=== PATIENT | male | born 1930 | race Caucasian/White ===

== ENCOUNTER 2017-02-21 21:19 | Emergency (ER) | payer MEDICARE, MEDICAID ==
[2017-02-21 21:37] VITALS: TEMP 97.5
[2017-02-21] MEDS ORDERED: Enalaprilat 2.5 MG/2 ML IVP STA (22:43)
[2017-02-21] MEDS ORDERED: Enalaprilat 2.5 MG/2 ML ONE (22:51)
[2017-02-21 22:52] LABS: BASO % 0.8 % (0.0-2.0); EOS # 0.2 K/uL (0.0-0.7); EOS % 2.6 % (0.0-4.0); HEMATOCRIT 40.7 % (35.0-51.0); LYMPH # 1.2 K/uL (1.0-4.3); LYMPH % 20.6 % (20.0-40.0); MEAN CELL VOLUME 91.7 fL (80.0-94.0); MEAN CORPUSCULAR HEMOGLOBIN 31.8 pg (27.0-31.0); MEAN CORPUSCULAR HGB CONC 34.7 g/dL (33.0-37.0); MEAN PLATELET VOLUME 7.4 fL (7.2-11.7); MONO # 0.6 K/uL (0.0-0.8); MONO % 9.8 % (0.0-10.0); WHITE BLOOD COUNT 5.8 K/uL (4.8-10.8)
[2017-02-21 23:02] LABS: CHLORIDE 93 mmol/L (98-107); INR 1.1
[2017-02-21 23:03] LABS: POTASSIUM 4.1 mmol/L (3.6-5.2); SODIUM 138 mmol/L (132-148)
[2017-02-21 23:05] LABS: BILIRUBIN,TOTAL 0.7 mg/dL (0.2-1.3); CARBON DIOXIDE 32 mmol/L (22-30); GFR AFRICAN-AMERICAN > 60
[2017-02-21 23:06] LABS: ALB/GLOB RATIO 1.1 (1.0-2.1); ALKALINE PHOSPHATASE 98 U/L (38-126); ALT/SGPT 30 U/L (21-72); AST/SGOT 39 U/L (17-59); BLOOD UREA NITROGEN 25 mg/dL (9-20); CALCIUM 9.7 mg/dl (8.6-10.4); GLUCOSE,RANDOM 106 mg/dL (75-110); TOTAL PROTEIN 7.4 g/dL (6.3-8.3)
[2017-02-21 23:10] VITALS: O2SAT 100
[2017-02-22 00:32] VITALS: PULSE 62; RESP 16
[2017-02-22 00:33] VITALS: BP 141/60
--- NOTE | 2017-02-22 00:35 | C.PDOC ---
History Of Present Illness Pt had a mechanical fall and fell onto a table on his way down to the ground. No LOC as per family. Pt c/o right lower chest pain. - HPI Time Seen by Provider: 02/21/17 22:26 Chief Complaint (Nursing): Trauma History Per: Patient, Family History/Exam Limitations: other (Dementia) Injury Occurred (Timing): Just Before Arrival Location Of Injury: Right: Chest, Forearm, Head Severity: Moderate Additional History Per: Prior Records - Fall Fall:Prior To Injury: Tripped Past Medical History Reviewed: Historical Data, Nursing Documentation, Vital Signs Vital Signs: Last Vital Signs Temp 97.5 F L 02/21/17 21:36 Pulse 62 02/22/17 00:30 Resp 16 02/22/17 00:30 BP 141/60 02/22/17 00:31 Pulse Ox 100 02/22/17 00:46 - Medical History PMH: Alzheimer's Disease, Benign Prostatic Hyperplasia, Dementia, HTN, Hypothyroidism Family History: States: Unknown Family Hx - Social History Hx Alcohol Use: No Hx Substance Use: No - Immunization History Hx Tetanus Toxoid Vaccination: No Hx Influenza Vaccination: Yes (2016) Hx Pneumococcal Vaccination: No Review Of Systems Except As Marked, All Systems Reviewed And Found Negative. Constitutional: Negative for: Fever Respiratory: Negative for: Shortness of Breath, Hemoptysis Gastrointestinal: Negative for: Vomiting, Abdominal Pain Musculoskeletal: Negative for: Neck Pain, Arm Pain, Back Pain Neurological: Negative for: Weakness, Numbness, Seizures, Altered Mental Status Physical Exam - Physical Exam Appears: No Acute Distress Skin: Normal Color, Warm, Dry Head: No Laceration, Other (contusion on right side of head) Eye(s): bilateral: EOMI Neck: Normal ROM, No Midline Cervical Tenderness, No Step Off Deformity, Supple Chest: Symmetrical, No Deformity, Tenderness (right lower) Cardiovascular: Rhythm Regular Respiratory: Normal Breath Sounds, No Accessory Muscle Use Gastrointestinal/Abdominal: Soft, No Tenderness Back: No CVA Tenderness, No Vertebral Tenderness Extremity: Normal ROM, No Tenderness, No Deformity, Other (abrasion on right forearm) Extremity: Bilateral: Hips Non-Tender, Pelvis-Stable Pulses: Right Radial: Normal Neurological/Psych: Other (Moving all extremities) ED Course And Treatment - Laboratory Results Result Diagrams: 02/21/17 22:46 02/21/17 22:46 ECG: Interpreted By Me, Viewed By Me ECG Rhythm: Sinus Rhythm, Nonspecific Changes Rate From EC O2 Sat by Pulse Oximetry: 100 Pulse Ox Interpretation: Normal Progress - Interventions Interventions:: Observation - Medications Administered Oral: Acetaminophen Intravenous: Antihypertensive Disposition - Disposition Disposition Time: 00:51 Condition: IMPROVED - Clinical Impression Clinical Impression: Hypertension, Fall Physician Patient Turnover Patient Signed Over To: Bhavin Lebron Handoff Comments: to f/up CT scan results.
--- NOTE | 2017-02-22 00:56 | CT ---
EXAM: CT Cervical Spine Without Intravenous Contrast CLINICAL HISTORY: 87 years old, male; Pain; Neck pain; Additional info: S/P fall, hit head TECHNIQUE: Axial computed tomography images of the cervical spine without intravenous contrast. This CT exam was performed using one or more of the following dose reduction techniques: automated exposure control, adjustment of the mA and/or kV according to patient size, and/or use of iterative reconstruction technique. Coronal and sagittal reformatted images were created and reviewed. EXAM DATE/TIME: 02/21/2017 10:50 PM COMPARISON: There are no prior studies for comparison. FINDINGS: Vertebrae: There is maintenance of the cervical lordosis. There is no prevertebral soft tissue swelling. Bony structures are osteopenic. There are no fractures. There is multilevel degenerative change. There is narrowing of the predental space. There is disc space narrowing at multiple levels. Disc space narrowing is greatest C5/C6.Facet joints align anatomically. There is mild narrowing of multiple facet joints.Spinous processes align in the expected fashion. There degenerative osteophytes greatest C5/C6 and T3/T4 Discs/spinal canal/neural foramina: See above. Soft tissues: See above. Thyroid: Thyroid is unremarkable Lung apices: Lung apices are hyperinflated. There is a 5.8 mm right upper lobe nodule. There is apical pleural-parenchymal scarring bilaterally. IMPRESSION: Osteopenia and degenerative change, no fracture; 5.8 mm right upper lobe pulmonary nodule Footer: As per Fleischner Society guidelines for follow-up and management of pulmonary nodules: For patients at low risk (minimal or absent history of smoking and of other known risk factors), recommend follow-up chest CT at 12 months; if unchanged, no further follow-up. For patient at high risk (history of smoking or of other known risk factors), recommend initial follow-up chest CT at 6-12 months, then at 18-24 months if no interval change.
--- NOTE | 2017-02-22 00:58 | CT ---
EXAM: CT Head Without Intravenous Contrast CLINICAL HISTORY: 87 years old, male; Pain; Headache and other: Hit his right side body; Additional info: S/P fall, hit head TECHNIQUE: Axial computed tomography images of the head/brain without intravenous contrast. This CT exam was performed using one or more of the following dose reduction techniques: automated exposure control, adjustment of the mA and/or kV according to patient size, and/or use of iterative reconstruction technique. EXAM DATE/TIME: 02/21/2017 10:50 PM COMPARISON: There are no prior studies for comparison. FINDINGS: Brain: There is dilatation of sulci gyri and ventricles. There is no midline shift. There is decreased attenuation in periventricular white matter. There age-indeterminate lacunar infarcts in the basal ganglia There are no focal masses. There are no focal hemorrhages. Huston-white differentiation is visualized. Ventricles: See above. Bones: Cranial vault is intact. Soft tissues: unremarkable Sinuses: There is no acute sinusitis. Ears and mastoids: Middle ears and mastoids are unremarkable. Orbits: There are no acute orbital abnormalities. IMPRESSION: Atrophy and small vessel disease, no bleed
--- NOTE | 2017-02-22 05:31 | CT ---
EXAM: CT Chest Without Intravenous Contrast CLINICAL HISTORY: 87 years old, male; Pain; Abdominal pain and other: Lower chest pain; Additional info: S/P fall, right lower chest pain. TECHNIQUE: Axial computed tomography images of the chest without intravenous contrast. This CT exam was performed using one or more of the following dose reduction techniques: automated exposure control, adjustment of the mA and/or kV according to patient size, and/or use of iterative reconstruction technique. Coronal and sagittal reformatted images were created and reviewed. COMPARISON: There are no prior studies for comparison. FINDINGS: Lungs and pleural spaces: Trachea and main bronchi are patent. The lungs are hyperinflated. There is no pneumothorax.There is apical pleural-parenchymal scarring. There is a 5 mm right upper lobe pulmonary nodule. There are smaller additional nodules in the right upper lobe. There is a pleural-based masslike opacity in the right upper lobe 2 x 2.4 x 1.2 cm. Area scarring in the right middle and lower lobes. There is mild right upper and lower lobe cylindrical bronchiectasis. There is scarring at the left base. There are no effusions. Heart and vasculature: Heart size is normal. There are coronary calcifications.There is fluid in the pericardial recesses.Aorta and main pulmonary artery are normal in caliber.There are vascular calcifications. Mediastinum: There is no pneumomediastinum. The esophagus is unremarkable. There are shotty mediastinal nodes.Denise are not optimally evaluated without contrast material. There is a small hiatal hernia Thyroid: Thyroid is unremarkable Bones/joints: Bony structures are osteopenic. There are degenerative changes in the spine. There are no acute displaced rib fractures. Soft tissues: unremarkable Upper abdomen: Refer to following report for abdominal findings IMPRESSION: No acute intrathoracic injury, no fracture seen; multiple right upper lobe pulmonary nodules infectious/inflammatory versus neoplastic; atherosclerotic disease Additional findings as described above. Footer: As per Fleischner Society guidelines for follow-up and management of pulmonary nodules: Recommend initial follow-up chest CT at 3, 9 and 24 months. Consider contrast enhanced chest CT, PET scan and/or biopsy as clinically warranted. EXAM: CT Abdomen and Pelvis Without Intravenous Contrast CLINICAL HISTORY: 87 years old, male; Pain; Abdominal pain and other: Lower chest pain; Additional info: S/P fall, right lower chest pain. TECHNIQUE: Axial computed tomography images of the abdomen and pelvis without intravenous contrast. This CT exam was performed using one or more of the following dose reduction techniques: automated exposure control, adjustment of the mA and/or kV according to patient size, and/or use of iterative reconstruction technique. Coronal and sagittal reformatted images were created and reviewed. EXAM DATE/TIME: 02/21/2017 10:51 PM COMPARISON: There are no prior studies for comparison. FINDINGS: Lower thorax: Refer to prior report for chest findings ABDOMEN: Limitation: Streak artifact degrades image quality. Motion artifact degrades image quality. Liver: unremarkable Gallbladder and bile ducts: unremarkable Pancreas: Pancreas is mildly atrophic. Spleen: unremarkable Adrenals: Left adrenal is mildly nodular. There is right adrenal thickening. Kidneys and ureters: There is a right renal cyst. Kidneys and ureters are otherwise unremarkable. Stomach and bowel: Stomach is partially distended. Rotation is normal. Small bowel is mildly distended with fluid and air. There is no obstruction. Terminal ileum is unremarkable. Visualized portion of the appendix is unremarkable.Colon is incompletely distended which limits evaluation. There is mild rectal wall thickening Appendix: See stomach and bowel PELVIS: Bladder: Bladder is distended. There is mild bladder wall thickening. Reproductive: There multiple seeds in the prostate. The prostate is enlarged.Seminal vesicles have the expected configuration. ABDOMEN and PELVIS: Intraperitoneal space: There is no significant fluid.There is no free air. Bones/joints: Bony structures are osteopenic.There are degenerative changes in the osseus structures. Soft tissues: unremarkable Vasculature: There are vascular calcifications. Lymph nodes: There is no pathologic adenopathy. IMPRESSION: Slightly limited evaluation of solid viscera and bowel due to lack of venous contrast, no acute solid viscera or bowel injury identified, no fracture seen Additional findings as described above.
--- NOTE | 2017-02-22 09:19 | RAD ---
HISTORY: Right chest injury s/p fall. HTN. COMPARISON: No prior. FINDINGS: LUNGS: The lungs are well inflated and clear. No focal consolidation or airspace disease. PLEURA: No significant pleural effusion identified, no pneumothorax apparent. CARDIOVASCULAR: Normal. OSSEOUS STRUCTURES: No acute rib fracture. VISUALIZED UPPER ABDOMEN: Normal. OTHER FINDINGS: None. IMPRESSION: No acute findings.
--- NOTE | 2017-02-24 12:43 | CARD ---
APPROVED REPORT EKG Measurement Heart [id number] CT [id number] <Conclusion> Sinus rhythm with premature supraventricular complexes Possible Left atrial enlargement Nonspecific T wave abnormality Prolonged QT Abnormal ECG
== END 2017-02-22 01:40 | disposition home or self-care (01) ==
LOC: C.ER 21:19
DX: S00.93XA Contusion of unspecified part of head, initial encounter (principal); S50.811A Abrasion of right forearm, initial encounter; W01.0XXA Fall on same level from slipping, tripping and stumbling without subsequent striking against object, initial encounter; I10 Essential (primary) hypertension

== ENCOUNTER 2017-04-23 11:58 | Inpatient (IN) | payer MEDICARE, MEDICAID ==
[2017-04-23] MEDS ORDERED: Sodium Chloride 0.9% 1,000 ML IV ONE (12:15)
--- NOTE | 2017-04-23 12:24 | C.PDOC ---
History Of Present Illness Wan is an 87 y/o male with a history of hypertension, hypothyroidism, and Alzheimers, who at baseline is not AAOx3, and essentially is nonverbal per family but able to move around and occasionally feed himself. Patient is complaining of fever and generalized fatigue since yesterday, which has persisted, prompting visit. Patient also with history of cough for 4 days, and urinary hesitancy, frequency, and foul smelling urine for 4 days. Since yesterday, patient has not been able to ambulate at all or feed himself. PMD: Dr. Erika Washington Time Seen by Provider: 04/23/17 12:00 Chief Complaint (Nursing): Weakness/Neurological Deficit History Per: Family History/Exam Limitations: clinical condition (dementia) Onset/Duration Of Symptoms: Days (x 2) Current Symptoms Are (Timing): Still Present Past Medical History Reviewed: Historical Data, Nursing Documentation, Vital Signs Vital Signs: Last Vital Signs Temp 102 F H 04/23/17 12:22 Pulse 76 04/23/17 12:22 Resp 16 04/23/17 12:22 BP 135/71 04/23/17 12:22 Pulse Ox 100 04/23/17 12:22 - Medical History PMH: Alzheimer's Disease, Benign Prostatic Hyperplasia, Dementia, HTN, Hypothyroidism Other Surgeries: Prostate surgery Family History: States: Unknown Family Hx - Social History Hx Alcohol Use: No Hx Substance Use: No - Immunization History Hx Tetanus Toxoid Vaccination: No Hx Influenza Vaccination: Yes (2016) Hx Pneumococcal Vaccination: No Review Of Systems Review Of Systems: ROS cannot be obtained secondary to pt's inabilty to answer questions. (limited by dementia, hx per family) Constitutional: Positive for: Fever, Malaise Respiratory: Positive for: Cough Gastrointestinal: Negative for: Vomiting, Diarrhea, Constipation Genitourinary: Positive for: Frequency (and hesitancy), Other (Foul smelling urine) Skin: Negative for: Rash Neurological: Negative for: Weakness (no focal) Physical Exam - Physical Exam Appears: No Acute Distress, Chronically Ill, Other (Appears cachectic) Skin: Normal Color, Warm, Dry Head: Atraumatic, Normacephalic Eye(s): bilateral: Normal Inspection, PERRL, EOMI Oral Mucosa: Dry (mucus membranes) Teeth: Other (Poor/missing dentition) Throat: Other (Oropharynx dry) Neck: Normal, Supple Chest: Symmetrical, No Tenderness Cardiovascular: Rhythm Regular, No Murmur Respiratory: Normal Breath Sounds, No Accessory Muscle Use, No Rhonchi, No Stridor, No Wheezing Gastrointestinal/Abdominal: Normal Exam, Soft, No Tenderness, No Distention Back: Normal Inspection, No CVA Tenderness Extremity: Other (Moving all extremities x4, but unable to keep upper extremities raised for > 5 sec bilaterally) Neurological/Psych: Other (Alert but nonverbal) ED Course And Treatment - Laboratory Results Result Diagrams: 04/23/17 12:32 04/23/17 12:32 Medical Decision Making Medical Decision Making: Differentials include but are not limited to: Pneumonia vs. Urosepsis vs. CVA Time: 12:15 Initial Plan: --CBC w/ differential --PTT --Prothrombin time --CMP --Creatine phosphokinase --CK-MB --Free T4 --Free T3 --Magnesium --Phosphorous --TSH --Troponin I --VBG --Blood culture --Urine culture --Urinalysis --EKG --CXR portable --Sodium chloride IV 1000 ml at 1000 mls/hr --Tylenol 650 mg AL --Ocampo catheter inserted --Pending CT Head w/o contrast 12:46PM EKG shows NSR at 81bpm with incomplete RBBB. Lactate 3. However, patient's does not meet SIRS criteria (temp elevated, but HR<100, R<20, WBC<12 with <10% bandemia.) 1L IVF already infusing with broad spectrum antibiotics ordered ( ordered at 12:33 and order change at 14:07 as requested by nurse to reflect what was available in ED pyxis) Time: 13:22 Chest X-Ray: Findings: Hyperinflation suggestive for COPD and or emphysematous changes. Biapical pleural thickening with upper lobe granulomatous changes. Mild patchy increased markings at the right lung base. Nodular density at the right lung base may represent confluence of shadows with ribs and vessels. Diffuse increased interstitial lung markings. Scattered nodular densities in both lung shah. Bibasilar nipple shadows. Productive change at the ends of the 1st ribs bilaterally. Heart size within normal limits. Degenerative changes in the spine and shoulders. Impression: Hyperinflation suggestive for COPD and or emphysematous changes. Biapical pleural thickening with upper lobe granulomatous changes. Mild patchy increased markings at the right lung base. Nodular density at the right lung base may represent confluence of shadows with ribs and vessels. Diffuse increased interstitial lung markings. Scattered nodular densities in both lung shah. Bibasilar nipple shadows. Productive change at the ends of the 1st ribs bilaterally. Heart size within normal limits. Degenerative changes in the spine and shoulders. --Labs reviewed, clinically significant for UTI Time: 13:32 --Spoke to Dr. Washington, patient will be admitted to Med/Surg for UTI. Family at bedside and aware. CT shows "No acute intracranial abnormality. Chronic microvascular ischemic change. Bilateral temporal lobe as well as cerebellar lobe atrophy. Prominent ventricles." Disposition - Disposition Disposition: HOSPITALIZED Disposition Time: 12:22 Condition: FAIR - Clinical Impression Clinical Impression: UTI (urinary tract infection) - Scribe Statement The provider has reviewed the documentation as recorded by the Scribe [place] Florez All medical record entries made by the Scribe were at my direction and personally dictated by me. I have reviewed the chart and agree that the record accurately reflects my personal performance of the history, physical exam, medical decision making, and the department course for this patient. I have also personally directed, reviewed, and agree with the discharge instructions and disposition.
[2017-04-23] MEDS ORDERED: Sodium Chloride 0.9% 1,000 ML ONE (12:32)
[2017-04-23] MEDS ORDERED: Piperacill/Tazo 3.375gm in Dex 3.375 GM/50 ML BAG IVPB STA (12:33)
[2017-04-23] MEDS ORDERED: Vancomycin 1 gm/NS 200 ml 1 GM/200 ML BAG IVPB STA (12:33)
[2017-04-23 12:36] LABS: BASO % 0.4 % (0.0-2.0); HEMATOCRIT 37.2 % (35.0-51.0); LYMPH # 0.8 K/uL (1.0-4.3); LYMPH % 6.8 % (20.0-40.0); MEAN CORPUSCULAR HEMOGLOBIN 31.4 pg (27.0-31.0); MEAN CORPUSCULAR HGB CONC 33.5 g/dL (33.0-37.0); MEAN PLATELET VOLUME 7.5 fL (7.2-11.7); MONO # 1.8 K/uL (0.0-0.8); MONO % 16.1 % (0.0-10.0); PLATELET COUNT 175 K/uL (130-400); RED CELL DISTRIBUTION WIDTH 12.6 % (11.5-14.5)
[2017-04-23 12:38] LABS: VENOUS BLOOD GAS BASE EXCESS 2.3 mmol/L (0.0-2.0); VENOUS BLOOD GAS PCO2 56 mmHg (40-60); VENOUS BLOOD PH 7.33 (7.32-7.43)
[2017-04-23 12:42] LABS: MEAN CELL VOLUME 93.7 fL (80.0-94.0); WHITE BLOOD COUNT 11.2 K/uL (4.8-10.8)
[2017-04-23 12:44] LABS: CHLORIDE 97 mmol/L (98-107); RBC URINE 19 /hpf (0-3); SODIUM 136 mmol/L (132-148); URINE BILIRUBIN NEGATIVE (NEGATIVE); URINE BLOOD 2+ (NEGATIVE); URINE COLOR Yellow (YELLOW); URINE GLUCOSE (UA) NORMAL (Normal); URINE KETONE NEGATIVE (NEGATIVE); URINE LEUKOCYTE ESTERASE 3+ Leu/uL (Negative); URINE PROTEIN 1+ mg/dL (NEGATIVE); URINE UROBILINOGEN NORMAL mg/dL (0.2-1.0); WBC URINE 131 /hpf (0-5)
[2017-04-23 12:45] LABS: POTASSIUM 4.1 mmol/L (3.6-5.2)
[2017-04-23 12:46] LABS: GFR AFRICAN-AMERICAN > 60
[2017-04-23 12:47] LABS: ALB/GLOB RATIO 1.1 (1.0-2.1); ALKALINE PHOSPHATASE 68 U/L (38-126); ALT/SGPT 28 U/L (21-72); AST/SGOT 26 U/L (17-59); BILIRUBIN,TOTAL 0.8 mg/dL (0.2-1.3); BLOOD UREA NITROGEN 26 mg/dL (9-20); CARBON DIOXIDE 26 mmol/L (22-30); GLUCOSE,RANDOM 113 mg/dL (75-110); PHOSPHOROUS 3.3 mg/dL (2.5-4.5); TOTAL PROTEIN 6.5 g/dL (6.3-8.3)
[2017-04-23] MEDS ORDERED: Piperacillin/Tazobact 3.375 gm 100 ML IVPB ONE (12:47)
[2017-04-23 12:48] LABS: CALCIUM 9.1 mg/dl (8.6-10.4); MAGNESIUM 1.9 mg/dL (1.6-2.3)
[2017-04-23 12:59] LABS: NEUTROPHIL 81 % (50-75); REACTIVE LYMPHOCYTES 1 % (0-0); TOTAL CELLS COUNTED 100
[2017-04-23 13:07] LABS: INR 1.1
--- NOTE | 2017-04-23 13:24 | RAD ---
Chest x-ray single frontal view History: Fever. Comparison: 02/21/2017 Findings: Hyperinflation suggestive for COPD and or emphysematous changes. Biapical pleural thickening with upper lobe granulomatous changes. Mild patchy increased markings at the right lung base. Nodular density at the right lung base may represent confluence of shadows with ribs and vessels. Diffuse increased interstitial lung markings. Scattered nodular densities in both lung shah. Bibasilar nipple shadows. Productive change at the ends of the 1st ribs bilaterally. Heart size within normal limits. Degenerative changes in the spine and shoulders. Impression: Hyperinflation suggestive for COPD and or emphysematous changes. Biapical pleural thickening with upper lobe granulomatous changes. Mild patchy increased markings at the right lung base. Nodular density at the right lung base may represent confluence of shadows with ribs and vessels. Diffuse increased interstitial lung markings. Scattered nodular densities in both lung shah. Bibasilar nipple shadows. Productive change at the ends of the 1st ribs bilaterally. Heart size within normal limits. Degenerative changes in the spine and shoulders.
[2017-04-23 13:31] LABS: FT3 3.75 pg/mL (2.77-5.27)
[2017-04-23 13:45] LABS: THYROID STIMULATING HORMONE < 0.02 mIU/L (0.46-4.68)
[2017-04-23] MEDS ORDERED: Vancomycin 1 GM 1 GM/250 ML BAG IVPB ONE (14:03)
[2017-04-23] MEDS ORDERED: Vancomycin 1 GM 1 GM/250 ML BAG IVPB STA (14:07)
--- NOTE | 2017-04-23 14:07 | CT ---
PROCEDURE: CT HEAD WITHOUT CONTRAST. HISTORY: Weakness. Altered mental status. COMPARISON: 02/21/2017 TECHNIQUE: Axial computed tomography images were obtained through the head/brain without intravenous contrast. Radiation dose: Total exam DLP = 1004 mGy-cm. This CT exam was performed using one or more of the following dose reduction techniques: Automated exposure control, adjustment of the mA and/or kV according to patient size, and/or use of iterative reconstruction technique. FINDINGS: HEMORRHAGE: No intracranial hemorrhage. BRAIN: Scattered focal lucencies in the subcortical and periventricular white matter suggestive for chronic microvascular ischemic change. Bilateral temporal lobe atrophy. Cerebellar atrophy. Small bilateral lacunar basal ganglia infarcts. Punctate left cerebellar lacune infarct. Question chronic lacunar infarct in the medulla. VENTRICLES: Prominent ventricles. CALVARIUM: Unremarkable. PARANASAL SINUSES: Unremarkable as visualized. No significant inflammatory changes. MASTOID AIR CELLS: Unremarkable as visualized. No inflammatory changes. OTHER FINDINGS: Intracranial arterial calcifications. IMPRESSION: No acute intracranial abnormality. Chronic microvascular ischemic change. Bilateral temporal lobe as well as cerebellar lobe atrophy. Prominent ventricles. Additional findings as above. If focal neurologic deficit persists, consider MRI.
--- NOTE | 2017-04-23 16:07 | CP.PCM.HP ---
History of Present Illness - History of Present Illness History of Present Illness: HPI: Patient is a 87 y/o male with PMH Alzheimer disease, hypothyroidism, HTN, and prostate CA who presents to the ED with his daughter and [id number] with fever, fatigue, and lethargy since yesterday. Patient is non-verbal at baseline so history was obtained from the [id number], Meghana. She says the patient seemed disoriented yesterday and was not opening his eyes as much as usual. She took his temperature at home and says it was 101.7. She gave him tylenol which reduced the fever but it came back last night. She also noted a decrease in appetite with difficulty swallowing. She says the patient usually eats a normal vegetarian diet, but yesterday she had to puree his foods for him to be able to eat and she noticed he did not eat as much as usual. She says the patient is normally ambulatory with support at baseline but yesterday while helping him to the bathroom he became weak in the legs and could not support himself anymore. She says he has appeared to have generalized aches because when he moves there is a look of discomfort on his face. She also notes that 5 days ago she started noticing a foul odor to his urine along with a dark appearance and increasing frequency. She says he is normally incontinent at baseline so he wears diapers. She says she has also noticed a cough that the patient has had for about 4 days as well. Full ROS could not be obtained due to non-verbal status. PMH: Alzheimer disease, hypothyroidism, HTN, and prostate CA Meds: * levothyroxine 125 mcg 1.5 tabs PO QD * Metoprolol succinate 50 mg PO QD * Losartan 50 mg PO QD * Namzaric 28/10 mg PO QD * Nuedexta 20/10 mg PO BID PSH: radioactive seed implant of prostate FamHx: denied any known disease SocHx: * Denies tobacco, alcohol, and elicit drug use * Lives at home with children * Diet: vegetarian Code status: DNR/DNI (discussed with Health Proxy, Brayan (son) Contacts: * Brayan (son): [phone] * Dee (daughter): [phone] PMD: Sonny Peters Present on Admission - Present on Admission Any Indicators Present on Admission: No Review of Systems - Review of Systems All systems: reviewed and no additional remarkable complaints except (as per HPI ) Past Patient History - Past Social History Smoking Status: Never Smoked - CARDIAC Hx Hypertension: Yes - NEUROLOGICAL Hx Alzheimer's Disease: Yes Hx Dementia: Yes - ENDOCRINE/METABOLIC Hx Hypothyroidism: Yes - GENITOURINARY/GYNECOLOGICAL Hx Prostate Problems: Yes - PSYCHIATRIC Hx Substance Use: No - SURGICAL HISTORY Hx Surgeries: Yes Other/Comment: Prostate surgery - ANESTHESIA Hx Anesthesia: Yes Hx Anesthesia Reactions: No Meds Allergies/Adverse Reactions: Allergies Allergy/AdvReac Type Severity Reaction Status Date / Time No Known Allergies Allergy Verified 04/23/17 12:02 Physical Exam - Constitutional Appears: Cachectic, Chronically Ill - Head Exam Head Exam: ATRAUMATIC, NORMAL INSPECTION, NORMOCEPHALIC - Eye Exam Eye Exam: EOMI, PERRL - ENT Exam ENT Exam: Mucous Membranes Dry - Neck Exam Neck exam: Negative for: Lymphadenopathy - Respiratory Exam Respiratory Exam: Clear to Auscultation Bilateral, NORMAL BREATHING PATTERN. absent: Accessory Muscle Use, Rales, Rhonchi, Wheezes, Respiratory Distress - Cardiovascular Exam Cardiovascular Exam: REGULAR RHYTHM, +S1, +S2. absent: Bradycardia, Tachycardia , Gallop, Rubs, Systolic Murmur - GI/Abdominal Exam GI & Abdominal Exam: Normal Bowel Sounds, Soft, Tenderness (look of discomfort with epigastric palpation). absent: Distended - Extremities Exam Extremities exam: Positive for: normal capillary refill, pedal pulses present. Negative for: calf tenderness, pedal edema Additional comments: Splinter hemorrhages of right fingernails - Neurological Exam Neurological exam: Altered Additional comments: non-verbal 2/2 Alzheimer Disease - Skin Skin Exam: Dry, Intact, Normal Color, Warm Results - Vital Signs Recent Vital Signs: Last Vital Signs Temp 98 F 04/23/17 14:45 Pulse 66 04/23/17 14:45 Resp 19 04/23/17 14:45 BP 170/77 H 04/23/17 14:45 Pulse Ox 97 04/23/17 14:45 - Labs Result Diagrams: 04/23/17 12:32 04/23/17 12:32 Labs: Laboratory Results - last 24 hr 04/23/17 04/23/17 04/23/17 12:32 12:32 12:32 WBC 11.2 H D RBC 3.97 L Hgb 12.5 Hct 37.2 MCV 93.7 D MCH 31.4 H MCHC 33.5 RDW 12.6 Plt Count 175 MPV 7.5 Neut % (Auto) 76.7 H Lymph % (Auto) 6.8 L [place] % (Auto) 16.1 H Eos % (Auto) 0.0 Baso % (Auto) 0.4 Neut # 8.6 H Lymph # 0.8 L [place] # 1.8 H Eos # 0.0 Baso # 0.0 Neutrophils % (Manual) 81 H Band Neutrophils % 2 Lymphocytes % (Manual) 3 L Reactive Lymphs % 1 H Monocytes % (Manual) 13 H Platelet Estimate Normal RBC Morphology Normal PT 12.7 H INR 1.1 APTT 31 pO2 VBG pH VBG pCO2 VBG HCO3 VBG Total CO2 VBG O2 Sat (Calc) VBG Base Excess VBG Potassium Glucose Lactate Sodium 136 Potassium 4.1 Chloride 97 L Carbon Dioxide 26 Anion Gap 18 BUN 26 H Creatinine 1.3 Est GFR ( Amer) > 60 Est GFR (Non-Af Amer) 52 Random Glucose 113 H Calcium 9.1 Phosphorus 3.3 Magnesium 1.9 Total Bilirubin 0.8 AST 26 ALT 28 Alkaline Phosphatase 68 Total Creatine Kinase 35 L CK-MB (Mass) 0.49 Troponin I 0.0180 Total Protein 6.5 Albumin 3.4 L Globulin 3.1 Albumin/Globulin Ratio 1.1 Free T4 Free T3 pg/mL 3.75 TSH 3rd Generation < 0.02 L Venous Blood Potassium Urine Color Urine Clarity Urine pH Ur Specific [place] Urine Protein Urine Glucose (UA) Urine Ketones Urine Blood Urine Nitrate Urine Bilirubin Urine Urobilinogen Ur Leukocyte Esterase Urine WBC (Auto) Urine RBC (Auto) 04/23/17 04/23/17 04/23/17 12:32 12:32 12:35 WBC RBC Hgb Hct MCV MCH MCHC RDW Plt Count MPV Neut % (Auto) Lymph % (Auto) [place] % (Auto) Eos % (Auto) Baso % (Auto) Neut # Lymph # [place] # Eos # Baso # Neutrophils % (Manual) Band Neutrophils % Lymphocytes % (Manual) Reactive Lymphs % Monocytes % (Manual) Platelet Estimate RBC Morphology PT INR APTT pO2 18 L VBG pH 7.33 VBG pCO2 56 VBG HCO3 24.7 VBG Total CO2 31.2 H VBG O2 Sat (Calc) 36.2 L VBG Base Excess 2.3 H VBG Potassium 4.2 Glucose 129 H Lactate 3.2 H Sodium 133.0 Potassium Chloride 101.0 Carbon Dioxide Anion Gap BUN Creatinine Est GFR ( Amer) Est GFR (Non-Af Amer) Random Glucose Calcium Phosphorus Magnesium Total Bilirubin AST ALT Alkaline Phosphatase Total Creatine Kinase CK-MB (Mass) Troponin I Total Protein Albumin Globulin Albumin/Globulin Ratio Free T4 2.24 H Free T3 pg/mL TSH 3rd Generation Venous Blood Potassium 4.2 Urine Color Yellow Urine Clarity Hazy Urine pH 7.0 Ur Specific [place] 1.015 Urine Protein 1+ H Urine Glucose (UA) Normal Urine Ketones Negative Urine Blood 2+ H Urine Nitrate Positive H Urine Bilirubin Negative Urine Urobilinogen Normal Ur Leukocyte Esterase 3+ H Urine WBC (Auto) 131 H Urine RBC (Auto) 19 H Assessment & Plan - Assessment and Plan (Free Text) Assessment: UTI * Consult ID (Dr. Steele) - recs appreciated * Vanc 1g IV QD * f/u vanc trough Wed (04/26) @13:30 * Zosyn 2.25g IV Q6 * f/u blood culture * f/u urine culture Change in Functional Status * CT head: No acute intracranial abnormality. Chronic microvascular ischemic change. Bilateral temporal lobe as well as cerebellar lobe atrophy. Prominent ventricles. Additional findings as above. * f/u MRI brain (04/24) * PT/OT eval and treat * Consult case management for discharge planning * Consult palliative care for goals of treatment * f/u swallow eval and advance diet as needed * f/u rapid flu * f/u carotid doppler * f/u ALE @ 18:30 (04/23) and 00:30 (04/24) Splinter Hemorrhages of Right Fingernails * f/u echo * f/u blood culture Hx HTN * Metoprolol succinate 50 mg PO QD * Losartan 50 mg PO QD Hx Hypothyroidism * TSH <0.02 * T4: 2.24 * T3: 3.75 * Levothyroxine 187.5 mcg PO QD (home dose of 125mcg 1.5 tabs QD) Hx Alzheimer Disease * Namzaric 28/10 PO QD (Aricept and Namenda) * Nuedexta 20/10 PO BID Hx Prostate CA * Monitor PPX * Florastor 250 BID * DVT Risk Score: 2 * Heparin 5000 U SC Q12 * SCDs * Pepcid 20 mg QD
[2017-04-23] MEDS: Sodium Chloride 0.9% 1,000 ML IV SCH (16:40)
[2017-04-23] MEDS: Saccharomyces Boulardi 250 mg Cap PO SCH (18:17)
[2017-04-23] MEDS ORDERED: Piperacillin/Tazobact 2.25 GM in Sodium Chloride 100 ML IVPB SCH (19:00)
[2017-04-23] MEDS: Meropenem 500 MG in Sodium Chloride 0.9% 100 ML IVPB SCH (21:41)
[2017-04-24] MEDS: Sodium Chloride 0.9% 1,000 ML IV SCH ×3 (02:15→21:51)
[2017-04-24] MEDS: Meropenem 500 MG in Sodium Chloride 0.9% 100 ML IVPB SCH ×3 (05:40→21:54)
[2017-04-24] MEDS: Levothyroxine 125 MCG TAB PO SCH (05:40)
[2017-04-24 07:57] LABS: BASO % 0.3 % (0.0-2.0); HEMATOCRIT 34.6 % (35.0-51.0); LYMPH % 10.2 % (20.0-40.0); MEAN CELL VOLUME 93.6 fL (80.0-94.0); MEAN CORPUSCULAR HEMOGLOBIN 31.7 pg (27.0-31.0); MEAN CORPUSCULAR HGB CONC 33.8 g/dL (33.0-37.0); MEAN PLATELET VOLUME 7.7 fL (7.2-11.7); MONO # 1.3 K/uL (0.0-0.8); MONO % 13.3 % (0.0-10.0); WHITE BLOOD COUNT 9.9 K/uL (4.8-10.8)
[2017-04-24 08:08] LABS: CHLORIDE 107 mmol/L (98-107); POTASSIUM 3.9 mmol/L (3.6-5.2); SODIUM 139 mmol/L (132-148)
[2017-04-24 08:10] LABS: BILIRUBIN,TOTAL 0.7 mg/dL (0.2-1.3); GFR AFRICAN-AMERICAN > 60
[2017-04-24 08:11] LABS: ALB/GLOB RATIO 0.9 (1.0-2.1); ALKALINE PHOSPHATASE 67 U/L (38-126); ALT/SGPT 37 U/L (21-72); AST/SGOT 36 U/L (17-59); BLOOD UREA NITROGEN 23 mg/dL (9-20); CALCIUM 8.1 mg/dl (8.6-10.4); CARBON DIOXIDE 24 mmol/L (22-30); GLUCOSE,RANDOM 98 mg/dL (75-110); TOTAL PROTEIN 5.8 g/dL (6.3-8.3)
[2017-04-24] MEDS ORDERED: Metoprolol Succinate 50 mg XL Tab PO SCH (10:00)
[2017-04-24] MEDS: Saccharomyces Boulardi 250 mg Cap PO SCH ×2 (11:02→18:43)
[2017-04-24] MEDS: Metoprolol Succinate 50 mg XL Tab PO SCH (11:03)
--- NOTE | 2017-04-24 13:58 | CP.PCM.CON ---
History of Present Illness - History of Present Illness History of Present Illness: Palliative consult Requested by Reg RODRIGUEZ Reason: Goals of care discussion Patient is a 87 yo male admitted from home with fever of 100.0 to 102.o and fatigue. Family also noted that patient's urine had a very strong odor. The urine C&S upon admission was sisgnificant for Gram - rods and patient started on Merrem IV and Vanco IV. WBC dropped to 9.0 from 11.2. The CXR was significant for changes suggesting COPD and emphysema. The CT head was negative acute findings. PMH: HTN, hypothyroidism, Alaheimer's, Soc. Hx: , lives at home with and the son and daughter Fam . hx: mother had Alzheimer's Review of Systems - Review of Systems All systems: reviewed and no additional remarkable complaints except Review of Systems: ROS obtained from the daughter. Patient nonverbal. As per daughter patient was too lethagic and could not participate at swallow evaluation this morning. Patient kept NPO until next swallow eval in AM. Past Patient History - Past Medical History & Family History Past Medical History?: Yes - Past Social History Smoking Status: Never Smoked - CARDIAC Hx Hypertension: Yes - NEUROLOGICAL Hx Alzheimer's Disease: Yes Hx Dementia: Yes - ENDOCRINE/METABOLIC Hx Hypothyroidism: Yes - MUSCULOSKELETAL/RHEUMATOLOGICAL Hx Falls: Yes - GENITOURINARY/GYNECOLOGICAL Hx Prostate Problems: Yes - PSYCHIATRIC Hx Substance Use: No - SURGICAL HISTORY Hx Surgeries: Yes Other/Comment: Prostate surgery - ANESTHESIA Hx Anesthesia: Yes Hx Anesthesia Reactions: No Meds Allergies/Adverse Reactions: Allergies Allergy/AdvReac Type Severity Reaction Status Date / Time No Known Allergies Allergy Verified 04/23/17 12:02 - Medications Medications: Current Medications Acetaminophen (Tylenol 325mg Tab) 650 mg PO Q6 PRN PRN Reason: Fever >100.4 F Donepezil HCl (Aricept) 10 mg PO HS [facility] Last Admin: 04/23/17 21:42 Dose: 10 mg Famotidine (Pepcid) 20 mg PO DAILY [facility] Last Admin: 04/24/17 11:03 Dose: Not Given Heparin Sodium (Porcine) (Heparin) 5,000 units SC Q12 [facility] Last Admin: 04/24/17 11:02 Dose: 5,000 units Home Med (Patient's Own Medication) 1 tab PO BID [facility] Vancomycin HCl 1 gm/ Sodium (Chloride) 250 mls @ 166.7 mls/hr IVPB Q24H [facility] Sodium Chloride (Sodium Chloride 0.9%) 1,000 mls @ 100 mls/hr IV .Q10H [facility] Last Admin: 04/24/17 04:30 Dose: 100 mls/hr Meropenem 500 mg/ Sodium (Chloride) 100 mls @ 100 mls/hr IVPB Q8 [facility] Last Admin: 04/24/17 05:40 Dose: 100 mls/hr Levothyroxine Sodium (Synthroid) 187.5 mcg PO DAILY@0630 [facility] Last Admin: 04/24/17 05:40 Dose: 187.5 mcg Losartan Potassium (Cozaar) 50 mg PO HS [facility] Last Admin: 04/23/17 21:41 Dose: 50 mg Memantine (Namenda) 10 mg PO BID [facility] Last Admin: 04/24/17 11:03 Dose: Not Given Metoprolol Succinate (Toprol Xl) 50 mg PO DAILY [facility] Last Admin: 04/24/17 11:03 Dose: Not Given Pneumococcal Polyvalent Vaccine (Pneumovax 23 Vaccine) 0.5 ml SC .ONCE ONE Stop: 04/26/17 10:01 Saccharomyces Boulardii (Florastor) 250 mg PO BID [facility] Last Admin: 04/24/17 11:02 Dose: Not Given Physical Exam - Constitutional Appears: Chronically Ill - Head Exam Head Exam: ATRAUMATIC, NORMAL INSPECTION, NORMOCEPHALIC - Eye Exam Eye Exam: EOMI, Normal appearance, PERRL Pupil Exam: NORMAL ACCOMODATION, PERRL - ENT Exam ENT Exam: Mucous Membranes Moist, Normal Exam - Neck Exam Neck exam: Positive for: Normal Inspection - Respiratory Exam Respiratory Exam: Decreased Breath Sounds, NORMAL BREATHING PATTERN - Cardiovascular Exam Cardiovascular Exam: REGULAR RHYTHM - GI/Abdominal Exam GI & Abdominal Exam: Normal Bowel Sounds, Soft - Rectal Exam Rectal Exam: Deferred - Exam Additional comments: Ocampo at bed side, urine concentrated - Extremities Exam Extremities exam: Positive for: normal inspection - Back Exam Back exam: NORMAL INSPECTION - Neurological Exam Neurological exam: Alert, Altered - Psychiatric Exam Psychiatric exam: Flat Affect - Skin Skin Exam: Dry, Intact, Normal Color, Warm Results - Vital Signs Recent Vital Signs: Last Vital Signs Temp 98.9 F 04/24/17 06:00 Pulse 69 04/24/17 06:00 Resp 20 04/24/17 06:00 BP 148/68 04/24/17 06:00 Pulse Ox 100 04/24/17 06:00 - Labs Result Diagrams: 04/24/17 07:47 04/24/17 07:47 Labs: Laboratory Results - last 24 hr 04/23/17 04/23/17 04/24/17 15:28 19:08 03:12 WBC RBC Hgb Hct MCV MCH MCHC RDW Plt Count MPV Neut % (Auto) Lymph % (Auto) [place] % (Auto) Eos % (Auto) Baso % (Auto) Neut # Lymph # [place] # Eos # Baso # APTT Sodium Potassium Chloride Carbon Dioxide Anion Gap BUN Creatinine Est GFR ( Amer) Est GFR (Non-Af Amer) Random Glucose Calcium Total Bilirubin AST ALT Alkaline Phosphatase Total Creatine Kinase 59 54 L CK-MB (Mass) 1.61 0.83 Troponin I, Quant 0.0260 0.0500 Total Protein Albumin Globulin Albumin/Globulin Ratio Influenza Typ A,B (EIA) Negative for flu a/b 04/24/17 04/24/17 04/24/17 07:47 07:47 07:47 WBC 9.9 RBC 3.70 L Hgb 11.7 L Hct 34.6 L MCV 93.6 MCH 31.7 H MCHC 33.8 RDW 13.0 Plt Count 155 MPV 7.7 Neut % (Auto) 76.2 H Lymph % (Auto) 10.2 L [place] % (Auto) 13.3 H Eos % (Auto) 0.0 Baso % (Auto) 0.3 Neut # 7.6 H Lymph # 1.0 [place] # 1.3 H Eos # 0.0 Baso # 0.0 APTT 31 Sodium 139 Potassium 3.9 Chloride 107 Carbon Dioxide 24 Anion Gap 13 BUN 23 H Creatinine 1.3 Est GFR ( Amer) > 60 Est GFR (Non-Af Amer) 52 Random Glucose 98 Calcium 8.1 L Total Bilirubin 0.7 AST 36 ALT 37 Alkaline Phosphatase 67 Total Creatine Kinase CK-MB (Mass) Troponin I, Quant Total Protein 5.8 L Albumin 2.8 L Globulin 3.0 Albumin/Globulin Ratio 0.9 L Influenza Typ A,B (EIA) Assessment & Plan - Assessment and Plan (Free Text) Assessment: Palliative consult Code status, DNR/DNI, Advance directive on chart I reviewed medical records, all diagnostic studies, examined patient in the bed and discussed goals of care with his daughter Dana at bed side. Patient is alert, lethargic, nonverbal and unable to participate in goals of care discussion. Physical exam reveals no acute findings. Goals of care discussed with patient's daughter Dana at bed side. I reviewed patient's clinical presentation and elicited daughter's expectations of care. Dana had a very good insight in her father's condition. She states seeing steady decline over the time and lastly patient was not able to recognize family members nor to fallow simple directions. Dana is concerned about patient's inability to swallow, but would not want aggressive measures such as PEG if it would not bring about improved quality of life for the patient. Dana's biggest concern is her father comfort. She would want us to apply all measures to promote her father's comfort and prevent suffering. She feels that now when her father was not able to talk any more, she needs to step in and advocate for him. Per Dana, the whole family is united in desire for conservative treatments only and promotion of natural . Code status discussed. DNR/DNI confirmed. Dana was opened for discussion about home hospice. She will reach out to us, when she feels the home hospice would be appropriate level of care for her father. Impression * This is an elderly male with complex medical Hx * patient is lethargic and nonverbal unable to participate in goals of care discussion * Dysphagia * Family has noticed steady decline in patient's condition * Family is concerned with patient;s comfort and quality of life * Family advocates for natural Suggestion * Apply all nonivasive measures to support life * Repeat Swallow eval * Promote comfort * If PEG becomes an option, family would like to be consulted for the final decision * Family is open to a Home Hospice if that would benefit patient in the future I gave daughter my contact info for further discussions as needed. Thank you for consulting Palliative Care
--- NOTE | 2017-04-24 16:13 | CP.PCM.PN ---
<Zoran Palafox - Last Filed: 04/24/17 17:59> Subjective - Date & Time of Evaluation Date of Evaluation: 04/24/17 Time of Evaluation: 09:35 - Subjective Subjective: PGY1 Medicine Note for Dr. Arreaga Patient seen and examined at bedside this morning. Patient is non-verbal at baseline. Objective - Vital Signs/Intake and Output Vital Signs (last 24 hours): Temp Pulse Resp BP Pulse Ox 98.9 F 69 20 148/68 100 04/24/17 06:00 04/24/17 14:14 04/24/17 06:00 04/24/17 14:14 04/24/17 14:14 Intake and Output: 04/24/17 04/24/17 06:59 18:59 Intake Total 1700 350 Output Total 800 400 Balance 900 -50 - Medications Medications: Current Medications Acetaminophen (Tylenol 325mg Tab) 650 mg PO Q6 PRN PRN Reason: Fever >100.4 F Donepezil HCl (Aricept) 10 mg PO [facility] Last Admin: 04/23/17 21:42 Dose: 10 mg Famotidine (Pepcid) 20 mg PO DAILY [facility] Last Admin: 04/24/17 11:03 Dose: Not Given Heparin Sodium (Porcine) (Heparin) 5,000 units SC Q12 [facility] Last Admin: 04/24/17 11:02 Dose: 5,000 units Home Med (Patient's Own Medication) 1 tab PO BID [facility] Vancomycin HCl 1 gm/ Sodium (Chloride) 250 mls @ 166.7 mls/hr IVPB Q24H [facility] Last Admin: 04/24/17 14:21 Dose: 166.7 mls/hr Sodium Chloride (Sodium Chloride 0.9%) 1,000 mls @ 100 mls/hr IV .Q10H [facility] Last Admin: 04/24/17 04:30 Dose: 100 mls/hr Meropenem 500 mg/ Sodium (Chloride) 100 mls @ 100 mls/hr IVPB Q8 [facility] Last Admin: 04/24/17 14:21 Dose: 100 mls/hr Levothyroxine Sodium (Synthroid) 187.5 mcg PO DAILY@0630 [facility] Last Admin: 04/24/17 05:40 Dose: 187.5 mcg Losartan Potassium (Cozaar) 50 mg PO [facility] Last Admin: 04/23/17 21:41 Dose: 50 mg Memantine (Namenda) 10 mg PO BID [facility] Last Admin: 04/24/17 11:03 Dose: Not Given Metoprolol Succinate (Toprol Xl) 50 mg PO DAILY [facility] Last Admin: 04/24/17 11:03 Dose: Not Given Pneumococcal Polyvalent Vaccine (Pneumovax 23 Vaccine) 0.5 ml SC .ONCE ONE Stop: 04/26/17 10:01 Saccharomyces Boulardii (Florastor) 250 mg PO BID [facility] Last Admin: 04/24/17 11:02 Dose: Not Given - Labs Labs: 04/24/17 07:47 04/24/17 07:47 PT 12.7 SECONDS (9.7-12.2) H 04/23/17 12:32 INR 1.1 04/23/17 12:32 APTT 31 SECONDS (21-34) 04/24/17 07:47 - Constitutional Appears: Non-toxic, No Acute Distress - Head Exam Head Exam: ATRAUMATIC, NORMOCEPHALIC - ENT Exam ENT Exam: Mucous Membranes Moist Additional comments: missing many teeth - Respiratory Exam Respiratory Exam: Clear to Ausculation Bilateral, NORMAL BREATHING PATTERN. absent: Accessory Muscle Use, Respiratory Distress - Cardiovascular Exam Cardiovascular Exam: REGULAR RHYTHM, +S1, +S2 - GI/Abdominal Exam GI & Abdominal Exam: Soft, Tenderness (superpubic), Normal Bowel Sounds. absent : Distended, Firm, Guarding, Rigid - Extremities Exam Extremities Exam: Normal Capillary Refill, Normal Inspection. absent: Calf Tenderness, Pedal Edema, Tenderness - Neurological Exam Neurological Exam: Altered (baseline hx of AD), Awake. absent: Oriented x3 ( baseline) - Psychiatric Exam Psychiatric exam: Flat Affect - Skin Skin Exam: Dry, Intact, Normal Color, Warm Assessment and Plan - Assessment and Plan (Free Text) Assessment: UTI * Consult ID (Dr. Steele) - recs appreciated * Vanc 1g IV QD * f/u vanc trough Wed (04/26) @13:30 * Zosyn 2.25g IV Q6 * blood culture - no growth at 24 hours * f/u urine culture - gram neg lavell Change in Functional Status * CT head: No acute intracranial abnormality. Chronic microvascular ischemic change. Bilateral temporal lobe as well as cerebellar lobe atrophy. Prominent ventricles. Additional findings as above. * f/u MRI brain (04/24) * PT/OT eval and treat * Consult case management for discharge planning * Consult palliative care - spoke with family, they understand patient's manager terminal prognosis with AD. They just want the patient to be comfortable throughout treatment. "Do everything you can to make him better as long as he is comfortable."DNR * f/u swallow eval and advance diet as needed - pt was too lethargic today. speech will try again tomorrow. * rapid flu - negative * carotid doppler - normal findings * ALE neg x 3 Splinter Hemorrhages of Right Fingernails * f/u echo - completed, awaiting report * blood culture - no growth at 24 hours Hx HTN * Metoprolol succinate 50 mg PO QD * Losartan 50 mg PO QD Hx Hypothyroidism * TSH <0.02 * T4: 2.24 * T3: 3.75 * Levothyroxine 187.5 mcg PO QD (home dose of 125mcg 1.5 tabs QD) Hx Alzheimer Disease * Namzaric 28/10 PO QD (Aricept and Namenda) * Nuedexta 20/10 PO BID Hx Prostate CA * Monitor PPX * Florastor 250 BID * DVT Risk Score: 2 * Heparin 5000 U SC Q12 * SCDs * Pepcid 20 mg QD Case discussed with Dr. Whitley Meehan Javy PGY1 <Silverio Arreaga - Last Filed: 04/25/17 15:49> Objective - Vital Signs/Intake and Output Vital Signs (last 24 hours): Temp Pulse Resp BP Pulse Ox 98.6 F 73 20 145/74 95 04/25/17 08:16 04/25/17 08:16 04/25/17 08:16 04/25/17 08:16 04/25/17 08:16 Intake and Output: 04/25/17 04/25/17 06:59 18:59 Intake Total 800 850 Output Total 350 400 Balance 450 450 - Medications Medications: Current Medications Acetaminophen (Tylenol 325mg Tab) 650 mg PO Q6 PRN PRN Reason: Fever >100.4 F Donepezil HCl (Aricept) 10 mg PO HS [facility] Last Admin: 04/24/17 21:54 Dose: 10 mg Famotidine (Pepcid) 20 mg PO DAILY [facility] Last Admin: 04/25/17 09:06 Dose: 20 mg Heparin Sodium (Porcine) (Heparin) 5,000 units SC Q12 [facility] Last Admin: 04/25/17 09:07 Dose: 5,000 units Home Med (Patient's Own Medication) 1 tab PO BID [facility] Last Admin: 04/25/17 09:06 Dose: 1 tab Vancomycin HCl 1 gm/ Sodium (Chloride) 250 mls @ 166.7 mls/hr IVPB Q24H [facility] Last Admin: 04/25/17 14:34 Dose: 166.7 mls/hr Sodium Chloride (Sodium Chloride 0.9%) 1,000 mls @ 100 mls/hr IV .Q10H [facility] Last Admin: 04/25/17 09:07 Dose: 100 mls/hr Meropenem 500 mg/ Sodium (Chloride) 100 mls @ 100 mls/hr IVPB Q8 [facility] Last Admin: 04/25/17 13:34 Dose: 100 mls/hr Gentamicin Sulfate 120 mg/ (Sodium Chloride) 103 mls @ 100 mls/hr IVPB Q24H [facility] Last Admin: 04/24/17 23:03 Dose: 100 mls/hr Levothyroxine Sodium (Synthroid) 187.5 mcg PO DAILY@0630 [facility] Last Admin: 04/25/17 06:12 Dose: 187.5 mcg Losartan Potassium (Cozaar) 50 mg PO HS [facility] Last Admin: 04/24/17 21:54 Dose: 50 mg Memantine (Namenda) 10 mg PO BID [facility] Last Admin: 04/25/17 09:06 Dose: 10 mg Metoprolol Succinate (Toprol Xl) 50 mg PO DAILY [facility] Last Admin: 04/25/17 09:06 Dose: 50 mg Pneumococcal Polyvalent Vaccine (Pneumovax 23 Vaccine) 0.5 ml SC .ONCE ONE Stop: 04/26/17 10:01 Saccharomyces Boulardii (Florastor) 250 mg PO BID [facility] Last Admin: 04/25/17 09:07 Dose: 250 mg - Labs Labs: 04/25/17 11:27 04/25/17 11:27 PT 12.7 SECONDS (9.7-12.2) H 04/23/17 12:32 INR 1.1 04/23/17 12:32 APTT 31 SECONDS (21-34) 04/24/17 07:47 Attending/Attestation - Attestation I have personally seen and examined this patient.: Yes I have fully participated in the care of the patient.: Yes I have reviewed all pertinent clinical information, including history, physical exam and plan: Yes Notes (Text): 04/25/17 15:48 Patient was seen and examined at bedside Continue management for UTI ID consultation has been [id number] recommendations I agree with the assessment and plan documented.
[2017-04-24] MEDS: NUEDEXTA PO SCH (18:43)
--- NOTE | 2017-04-24 21:51 | CP.PCM.CON ---
History of Present Illness - History of Present Illness History of Present Illness: dictated Past Patient History - Past Medical History & Family History Past Medical History?: Yes - Past Social History Smoking Status: Never Smoked - CARDIAC Hx Hypertension: Yes - NEUROLOGICAL Hx Alzheimer's Disease: Yes Hx Dementia: Yes - ENDOCRINE/METABOLIC Hx Hypothyroidism: Yes - MUSCULOSKELETAL/RHEUMATOLOGICAL Hx Falls: Yes - GENITOURINARY/GYNECOLOGICAL Hx Prostate Problems: Yes - PSYCHIATRIC Hx Substance Use: No - SURGICAL HISTORY Hx Surgeries: Yes Other/Comment: Prostate surgery - ANESTHESIA Hx Anesthesia: Yes Hx Anesthesia Reactions: No Meds Allergies/Adverse Reactions: Allergies Allergy/AdvReac Type Severity Reaction Status Date / Time No Known Allergies Allergy Verified 04/23/17 12:02 - Medications Medications: Current Medications Acetaminophen (Tylenol 325mg Tab) 650 mg PO Q6 PRN PRN Reason: Fever >100.4 F Donepezil HCl (Aricept) 10 mg PO HS [facility] Last Admin: 04/23/17 21:42 Dose: 10 mg Famotidine (Pepcid) 20 mg PO DAILY [facility] Last Admin: 04/24/17 11:03 Dose: Not Given Heparin Sodium (Porcine) (Heparin) 5,000 units SC Q12 [facility] Last Admin: 04/24/17 11:02 Dose: 5,000 units Home Med (Patient's Own Medication) 1 tab PO BID [facility] Last Admin: 04/24/17 18:43 Dose: 1 tab Vancomycin HCl 1 gm/ Sodium (Chloride) 250 mls @ 166.7 mls/hr IVPB Q24H [facility] Last Admin: 04/24/17 14:21 Dose: 166.7 mls/hr Sodium Chloride (Sodium Chloride 0.9%) 1,000 mls @ 100 mls/hr IV .Q10H [facility] Last Admin: 04/24/17 04:30 Dose: 100 mls/hr Meropenem 500 mg/ Sodium (Chloride) 100 mls @ 100 mls/hr IVPB Q8 [facility] Last Admin: 04/24/17 14:21 Dose: 100 mls/hr Gentamicin Sulfate 120 mg/ (Sodium Chloride) 103 mls @ 100 mls/hr IVPB Q24H [facility] Levothyroxine Sodium (Synthroid) 187.5 mcg PO DAILY@0630 [facility] Last Admin: 04/24/17 05:40 Dose: 187.5 mcg Losartan Potassium (Cozaar) 50 mg PO HS [facility] Last Admin: 04/23/17 21:41 Dose: 50 mg Memantine (Namenda) 10 mg PO BID [facility] Last Admin: 04/24/17 18:43 Dose: 10 mg Metoprolol Succinate (Toprol Xl) 50 mg PO DAILY [facility] Last Admin: 04/24/17 11:03 Dose: Not Given Pneumococcal Polyvalent Vaccine (Pneumovax 23 Vaccine) 0.5 ml SC .ONCE ONE Stop: 04/26/17 10:01 Saccharomyces Boulardii (Florastor) 250 mg PO BID [facility] Last Admin: 04/24/17 18:43 Dose: 250 mg Results - Vital Signs Recent Vital Signs: Last Vital Signs Temp 97.9 F 04/24/17 15:20 Pulse 73 04/24/17 15:20 Resp 20 04/24/17 15:20 BP 173/75 H 04/24/17 15:20 Pulse Ox 100 04/24/17 15:20 - Labs Result Diagrams: 04/24/17 07:47 04/24/17 07:47 Labs: Laboratory Results - last 24 hr 04/24/17 04/24/17 04/24/17 03:12 07:47 07:47 WBC 9.9 RBC 3.70 L Hgb 11.7 L Hct 34.6 L MCV 93.6 MCH 31.7 H MCHC 33.8 RDW 13.0 Plt Count 155 MPV 7.7 Neut % (Auto) 76.2 H Lymph % (Auto) 10.2 L [place] % (Auto) 13.3 H Eos % (Auto) 0.0 Baso % (Auto) 0.3 Neut # 7.6 H Lymph # 1.0 [place] # 1.3 H Eos # 0.0 Baso # 0.0 APTT 31 Sodium Potassium Chloride Carbon Dioxide Anion Gap BUN Creatinine Est GFR ( Amer) Est GFR (Non-Af Amer) Random Glucose Calcium Total Bilirubin AST ALT Alkaline Phosphatase Total Creatine Kinase 54 L CK-MB (Mass) 0.83 Troponin I, Quant 0.0500 Total Protein Albumin Globulin Albumin/Globulin Ratio 04/24/17 07:47 WBC RBC Hgb Hct MCV MCH MCHC RDW Plt Count MPV Neut % (Auto) Lymph % (Auto) [place] % (Auto) Eos % (Auto) Baso % (Auto) Neut # Lymph # [place] # Eos # Baso # APTT Sodium 139 Potassium 3.9 Chloride 107 Carbon Dioxide 24 Anion Gap 13 BUN 23 H Creatinine 1.3 Est GFR ( Amer) > 60 Est GFR (Non-Af Amer) 52 Random Glucose 98 Calcium 8.1 L Total Bilirubin 0.7 AST 36 ALT 37 Alkaline Phosphatase 67 Total Creatine Kinase CK-MB (Mass) Troponin I, Quant Total Protein 5.8 L Albumin 2.8 L Globulin 3.0 Albumin/Globulin Ratio 0.9 L
--- NOTE | 2017-04-25 02:38 | CON ---
INFECTIOUS DISEASE CONSULTATION DATE: REQUESTED BY: . HISTORY OF PRESENT ILLNESS: This patient is an 87-year-old male. He has a history of hypothyroidism, Alzheimer, hypertension, and prostate cancer. He was brought in with fever, fatigue, and lethargy. He was nonverbal. He is still very lethargic. He came with a fever of 101.7 as well as having difficulty ambulating and while eating, and has been having altered mental status. The patient is not able to give any history. PAST MEDICAL HISTORY: Significant for Alzheimer disease, hypothyroidism, hypertension, and prostate cancer. PAST SURGICAL HISTORY: Significant for implant and radioactive seed implant of prostate. FAMILY HISTORY: Negative. SOCIAL HISTORY: Negative for smoking or drinking. He lives at home with his children. Diet, vegetarian. He is DNR and DNI at this time. I was asked to evaluate earlier. Past medical history, never smoked. Cardiac, hypertension. Neurological, Alzheimer. Endocrine, he has hypothyroidism. , he has a prostate problem. He has prostate implants. ALLERGIES: NO ALLERGIES. PHYSICAL EXAMINATION: VITAL SIGNS: Temperature is 97.9, pulse is 73, and blood pressure 173/75. HEENT: Head is atraumatic and normocephalic. He remains on 100% [id number] mask. Pupils are reacting to light. He is severely cachectic. NECK: Supple. JVP is flat. Trachea is central. No lymphadenopathy present. LUNGS: Clear. No crackles or rales present. No accessory muscles are being used. No rhonchi. No wheezing. HEART: S1 and S2, regular. No murmurs appreciated. No gallop. ABDOMEN: Soft and nontender. No guarding. No rigidity present. EXTREMITIES: Have no edema, clubbing, or cyanosis. LABORATORY DATA: Show white count is 9.9. Today, he came with a white count of 11.2, hemoglobin 11.7, hematocrit 34.6, and platelet count is 155. Sodium is 139, potassium 3.9, chloride is 107, CO2 is 24, creatinine is 1.3. His blood culture is positive for gram-negative and the urine culture is positive for gram-negative. ASSESSMENT: So at this time, he has gram-negative septicemia most likely related to the urine and urinary tract infection. We did an MRI. We will order CAT scan of the abdomen and pelvis without contrast and at this time, I will give him one dose of gentamicin and now he is on vancomycin and meropenem at this time until the cultures finalize and we will give him one dose of gentamicin today, as he has gram-negative septicemia. Also ordered an echocardiogram and a CAT scan. Prognosis remains guarded. He also has prostate cancer, he has dementia, and he has septicemia. Francisco Das MD
[2017-04-25] MEDS: Meropenem 500 MG in Sodium Chloride 0.9% 100 ML IVPB SCH ×3 (06:04→21:05)
[2017-04-25] MEDS: Levothyroxine 125 MCG TAB PO SCH (06:12)
[2017-04-25] MEDS: Metoprolol Succinate 50 mg XL Tab PO SCH (09:06)
[2017-04-25] MEDS: NUEDEXTA PO SCH ×2 (09:06→17:51)
[2017-04-25] MEDS: Sodium Chloride 0.9% 1,000 ML IV SCH ×2 (09:07→18:15)
[2017-04-25] MEDS: Saccharomyces Boulardi 250 mg Cap PO SCH ×2 (09:07→17:39)
--- NOTE | 2017-04-25 09:59 | VASCLAB ---
PROCEDURE: HISTORY: Altered mental status COMPARISON: None available. TECHNIQUE: Grayscale and duplex Doppler evaluation of the cervical carotid and vertebral arteries were performed. The common carotid, carotid bifurcations and cervical Internal Carotid Artery (ICA) and proximal External Carotid Artery (ECA) were evaluated. The vertebral arteries were evaluated for gross patency and flow direction. Report prepared by JOHNNIE Hauser FINDINGS: RIGHT CAROTID ARTERIES: 1. Common Carotid Artery: No significant focal plaque formation of the right common carotid artery. Maximum Peak Systolic velocity: 72 cm/sec: End-diastolic velocity 8 cm/sec. 2. Carotid Bifurcation: plaque formation. Maximum Peak Systolic velocity: 54 cm/sec: End-diastolic velocity 7 cm/sec. 3. Internal Carotid Artery: Plaque description: 3.1. Proximal Segment: Peak systolic velocity 61 cm/sec: End-diastolic velocity 12 cm/sec - % stenosis 0-15% 3.2. Middle Segment: Peak systolic velocity 59 cm/sec: End-diastolic velocity 11 cm/sec - % stenosis 0-15% 3.3. Distal Segment: Peak systolic velocity 74 cm/sec: End-diastolic velocity 10 cm/sec - % stenosis 0-15% 4. External Carotid Artery: No significant focal plaque formation. Peak systolic velocity 41 cm/sec 5. ICA/CCA Ratio: 1.3 LEFT CAROTID ARTERIES: 1. Common Carotid Artery: No significant focal plaque formation of the left common carotid artery. Maximum Peak Systolic velocity: 57 cm/sec: End-diastolic velocity 11 cm/sec. 2. Carotid Bifurcation: Homogeneous plaque formation. Maximum Peak Systolic velocity: 51 cm/sec: End-diastolic velocity 0 cm/sec. 3. Internal Carotid Artery: Plaque description: Homogeneous 3.1. Proximal Segment: Peak systolic velocity 44 cm/sec: End-diastolic velocity 11 cm/sec - % stenosis 0-15% 3.2. Middle Segment: Peak systolic velocity 52 cm/sec: End-diastolic velocity 11 cm/sec - % stenosis 0-15% 3.3. Distal Segment: Peak systolic velocity 81 cm/sec: End-diastolic velocity 20 cm/sec - % stenosis 0-15% 4. External Carotid Artery: No significant focal plaque formation. Peak systolic velocity 63 cm/sec 5. ICA/CCA Ratio: 1.9 VERTEBRAL ARTERIES: 1. Right Vertebral Artery: The right vertebral artery flow direction is antegrade. 2. Left Vertebral Artery: The left vertebral artery flow direction is antegrade. OTHER FINDINGS: 1. Right Brachial Blood pressure: 148 mmHg. 2. Left Brachial Blood pressure: 145 mmHg. IMPRESSION: RIGHT: Duplex scan does not suggest hemodynamically significant stenosis of the right extracranial carotid arteries. LEFT: Duplex scan does not suggest hemodynamically significant stenosis of the left extracranial carotid arteries.
[2017-04-25 11:36] LABS: BASO % 0.4 % (0.0-2.0); EOS % 0.2 % (0.0-4.0); LYMPH # 0.9 K/uL (1.0-4.3); LYMPH % 12.5 % (20.0-40.0); MEAN CELL VOLUME 92.9 fL (80.0-94.0); MEAN CORPUSCULAR HEMOGLOBIN 31.5 pg (27.0-31.0); MEAN CORPUSCULAR HGB CONC 33.9 g/dL (33.0-37.0); MEAN PLATELET VOLUME 7.8 fL (7.2-11.7); MONO # 0.9 K/uL (0.0-0.8); MONO % 12.6 % (0.0-10.0); RED CELL DISTRIBUTION WIDTH 12.9 % (11.5-14.5)
[2017-04-25 11:53] LABS: ALKALINE PHOSPHATASE 59 U/L (38-126); ALT/SGPT 32 U/L (21-72); AST/SGOT 29 U/L (17-59); BILIRUBIN,TOTAL 0.4 mg/dL (0.2-1.3); BLOOD UREA NITROGEN 22 mg/dL (9-20); CALCIUM 8.4 mg/dl (8.6-10.4); CARBON DIOXIDE 23 mmol/L (22-30); CHLORIDE 105 mmol/L (98-107); GFR AFRICAN-AMERICAN > 60; GLUCOSE,RANDOM 74 mg/dL (75-110); POTASSIUM 3.8 mmol/L (3.6-5.2); SODIUM 137 mmol/L (132-148); TOTAL PROTEIN 5.2 g/dL (6.3-8.3)
--- NOTE | 2017-04-25 12:31 | MRI ---
PROCEDURE: MRI BRAIN WITHOUT CONTRAST HISTORY: change in functional status COMPARISON: Unenhanced Head CT 04/23/2017. TECHNIQUE: Multiplanar, multisequence MR images of the brain were obtained without intravenous contrast enhancement. FINDINGS: HEMORRHAGE: None DWI: No evidence of an acute or early subacute infarction. BRAIN PARENCHYMA: Diffuse expansion of the ventriculosulcal and cisternal spaces is appreciated with white matter lucency compatible with diffuse cerebral atrophy and chronic microangiopathy. The findings appear age-appropriate. Chronic lacune or infarcts identified in the bilateral thalami and right external capsule posteriorly with otherwise dilated perivascular space is suggested at the bilateral basal ganglia. Chronic lacune is suggested at the left cerebellar peduncle with limited chronic microangiopathy in the vicki. There is no mass effect or suspicious extra-axial collection appreciated. Midline brain and appears diffusely unremarkable VENTRICLES: Unremarkable. No hydrocephalus. CRANIUM: With the craniocervical junction appearing intact. ORBITS: Grossly unremarkable. PARANASAL SINUSES/MASTOIDS: Clear VASCULAR SYSTEM: Skull base flow voids intact. OTHER FINDINGS: None. IMPRESSION: Age related neuro degenerative change identified without acute intracranial findings by standard MR criteria. Chronic lacune is are identified at the bilateral thalami, right external capsule and left cerebellar peduncle. No suspicious interval findings compared prior to dated 04/23/2017.
--- NOTE | 2017-04-25 18:28 | CP.PCM.PN ---
Subjective - Date & Time of Evaluation Date of Evaluation: 04/25/17 Time of Evaluation: 07:45 - Subjective Subjective: PGY1 Medicine Note for Dr. Arreaga Patient seen and examined at bedside this morning. Patient is much more alert and awake today upon examination. Patient was speaking after being told he has been non-verbal at baseline. He kept trying to get out of bed stating, "I need to go down stairs." He could not answer why he needed to go down stairs. Patient 's history and ROS is not believed to be reliable. He appears to be in no pain with a smile on his face. Denies any complaints other than needing to get out of bed and go down stairs at this time. Objective - Vital Signs/Intake and Output Vital Signs (last 24 hours): Temp Pulse Resp BP Pulse Ox 98.1 F 70 20 186/74 H 98 04/25/17 15:10 04/25/17 15:10 04/25/17 15:10 04/25/17 15:10 04/25/17 15:10 Intake and Output: 04/25/17 04/25/17 06:59 18:59 Intake Total 800 850 Output Total 350 400 Balance 450 450 - Medications Medications: Current Medications Acetaminophen (Tylenol 325mg Tab) 650 mg PO Q6 PRN PRN Reason: Fever >100.4 F Donepezil HCl (Aricept) 10 mg PO HS [facility] Last Admin: 04/24/17 21:54 Dose: 10 mg Famotidine (Pepcid) 20 mg PO DAILY [facility] Last Admin: 04/25/17 09:06 Dose: 20 mg Heparin Sodium (Porcine) (Heparin) 5,000 units SC Q12 [facility] Last Admin: 04/25/17 09:07 Dose: 5,000 units Home Med (Patient's Own Medication) 1 tab PO BID [facility] Last Admin: 04/25/17 17:51 Dose: 1 tab Vancomycin HCl 1 gm/ Sodium (Chloride) 250 mls @ 166.7 mls/hr IVPB Q24H [facility] Last Admin: 04/25/17 14:34 Dose: 166.7 mls/hr Sodium Chloride (Sodium Chloride 0.9%) 1,000 mls @ 100 mls/hr IV .Q10H [facility] Last Admin: 04/25/17 09:07 Dose: 100 mls/hr Meropenem 500 mg/ Sodium (Chloride) 100 mls @ 100 mls/hr IVPB Q8 [facility] Last Admin: 04/25/17 13:34 Dose: 100 mls/hr Gentamicin Sulfate 120 mg/ (Sodium Chloride) 103 mls @ 100 mls/hr IVPB Q24H [facility] Last Admin: 04/24/17 23:03 Dose: 100 mls/hr Levothyroxine Sodium (Synthroid) 187.5 mcg PO DAILY@0630 [facility] Last Admin: 04/25/17 06:12 Dose: 187.5 mcg Losartan Potassium (Cozaar) 50 mg PO HS [facility] Last Admin: 04/24/17 21:54 Dose: 50 mg Memantine (Namenda) 10 mg PO BID [facility] Last Admin: 04/25/17 17:39 Dose: 10 mg Metoprolol Succinate (Toprol Xl) 50 mg PO DAILY [facility] Last Admin: 04/25/17 09:06 Dose: 50 mg Pneumococcal Polyvalent Vaccine (Pneumovax 23 Vaccine) 0.5 ml SC .ONCE ONE Stop: 04/26/17 10:01 Saccharomyces Boulardii (Florastor) 250 mg PO BID [facility] Last Admin: 04/25/17 17:39 Dose: 250 mg - Labs Labs: 04/25/17 11:27 04/25/17 11:27 PT 12.7 SECONDS (9.7-12.2) H 04/23/17 12:32 INR 1.1 04/23/17 12:32 APTT 31 SECONDS (21-34) 04/24/17 07:47 - Constitutional Appears: Non-toxic, No Acute Distress - Head Exam Head Exam: ATRAUMATIC, NORMOCEPHALIC - Eye Exam Eye Exam: EOMI - ENT Exam ENT Exam: Mucous Membranes Moist - Respiratory Exam Respiratory Exam: Clear to Ausculation Bilateral, NORMAL BREATHING PATTERN. absent: Accessory Muscle Use, Rales, Rhonchi, Wheezes, Respiratory Distress - Cardiovascular Exam Cardiovascular Exam: REGULAR RHYTHM, +S1, +S2. absent: JVD - GI/Abdominal Exam GI & Abdominal Exam: Soft, Normal Bowel Sounds. absent: Distended, Guarding, Rigid, Tenderness - Exam Additional comments: bender cath in place, draining yellow colored urine - Extremities Exam Extremities Exam: Normal Inspection. absent: Calf Tenderness, Pedal Edema - Neurological Exam Neurological Exam: Altered (baseline, speaking today but not making any sense. kept stating he needed to get up and go down stairs.) Assessment and Plan - Assessment and Plan (Free Text) Assessment: UTI * Consult ID (Dr. Steele) - recs appreciated * Vanc 1g IV QD * f/u vanc trough Wed (04/26) @13:30 * Zosyn 2.25g IV Q6 * blood culture - gram neg rods x1 culture; no growth at 48 hours x 1 culture * urine culture - E. Coli * f/u CT abd and pelvis w/o contrast Change in Functional Status * CT head: No acute intracranial abnormality. Chronic microvascular ischemic change. Bilateral temporal lobe as well as cerebellar lobe atrophy. Prominent ventricles. Additional findings as above. * MRI brain (04/25) - Age related neuro degenerative change identified without acute intracranial findings by standard MR criteria. Chronic lacune are identified at the bilateral thalami, right external capsule and left cerebellar peduncle. No suspicious interval findings compared prior to dated 04/23/2017 * PT/OT eval and treat * Consult case management for discharge planning * Consult palliative care - spoke with family, they understand patient's supervisor long goods prognosis with AD. They just want the patient to be comfortable throughout treatment. "Do everything you can to make him better as long as he is comfortable."DNR * swallow eval and advance diet as needed - solids = puree diet; liquids = nectar thick * rapid flu - negative * carotid doppler - normal findings * ALE neg x 3 Splinter Hemorrhages of Right Fingernails * f/u echo - completed, awaiting report * blood culture - no growth at 24 hours Hx HTN * Metoprolol succinate 50 mg PO QD * Losartan 50 mg PO QD Hx Hypothyroidism * TSH <0.02 * T4: 2.24 * T3: 3.75 * Levothyroxine 187.5 mcg PO QD (home dose of 125mcg 1.5 tabs QD) Hx Alzheimer Disease * Namzaric 28/10 PO QD (Aricept and Namenda) * Nuedexta 20/10 PO BID Hx Prostate CA * Monitor PPX * Florastor 250 BID * DVT Risk Score: 2 * Heparin 5000 U SC Q12 * SCDs * Pepcid 20 mg QD Case discussed with Dr. Whitley Meehan Javy PGY1
[2017-04-26] MEDS: Sodium Chloride 0.9% 1,000 ML IV SCH ×2 (03:30→14:59)
[2017-04-26] MEDS: Meropenem 500 MG in Sodium Chloride 0.9% 100 ML IVPB SCH ×3 (05:15→21:22)
[2017-04-26] MEDS: Levothyroxine 125 MCG TAB PO SCH (05:30)
[2017-04-26 07:28] LABS: BASO % 0.7 % (0.0-2.0); EOS # 0.1 K/uL (0.0-0.7); EOS % 1.4 % (0.0-4.0); HEMATOCRIT 36.6 % (35.0-51.0); LYMPH % 18.3 % (20.0-40.0); MEAN CELL VOLUME 91.6 fL (80.0-94.0); MEAN CORPUSCULAR HEMOGLOBIN 31.5 pg (27.0-31.0); MEAN CORPUSCULAR HGB CONC 34.4 g/dL (33.0-37.0); MEAN PLATELET VOLUME 7.9 fL (7.2-11.7); MONO # 0.8 K/uL (0.0-0.8); MONO % 14.4 % (0.0-10.0); NRBC % 0.1 % (0.0-2.0); RED CELL DISTRIBUTION WIDTH 12.7 % (11.5-14.5); WHITE BLOOD COUNT 5.7 K/uL (4.8-10.8)
[2017-04-26 07:46] LABS: CHLORIDE 101 mmol/L (98-107); POTASSIUM 3.5 mmol/L (3.6-5.2); SODIUM 139 mmol/L (132-148)
[2017-04-26 07:48] LABS: ALKALINE PHOSPHATASE 64 U/L (38-126); AST/SGOT 39 U/L (17-59); BILIRUBIN,TOTAL 0.5 mg/dL (0.2-1.3); CARBON DIOXIDE 25 mmol/L (22-30); GFR AFRICAN-AMERICAN > 60; TOTAL PROTEIN 5.7 g/dL (6.3-8.3)
[2017-04-26 07:49] LABS: ALT/SGPT 33 U/L (21-72); BLOOD UREA NITROGEN 19 mg/dL (9-20); CALCIUM 8.1 mg/dl (8.6-10.4); GLUCOSE,RANDOM 93 mg/dL (75-110)
[2017-04-26] MEDS: Metoprolol Succinate 50 mg XL Tab PO SCH (09:15)
[2017-04-26] MEDS: Saccharomyces Boulardi 250 mg Cap PO SCH ×2 (09:15→18:57)
[2017-04-26] MEDS: NUEDEXTA PO SCH ×3 (09:16→18:57)
[2017-04-26] MEDS ORDERED: Pneumococcal 23-Valent Vaccine SC ONE (10:00)
[2017-04-26] MEDS ORDERED: Pneumococcal 23-Valent Vaccine IM ONE (12:00)
--- NOTE | 2017-04-26 13:07 | CARD ---
APPROVED REPORT EXAM: Two-dimensional and M-mode echocardiogram with Doppler and color Doppler. Other Information Quality : GoodRhythm : NSR INDICATION Dizziness and Vertigo Fatigue Syncope R/O ENDOCARDITIS; FEVER RISK FACTORS Hypertension 2D DIMENSIONS IVSd1.0 (0.7-1.1cm)LVDd4.2 (3.9-5.9cm) PWd0.9 (0.7-1.1cm)LVDs2.9 (2.5-4.0cm) FS (%) 32.0 %LVEF (%)60.4 (>50%) M-Mode DIMENSIONS Left Atrium (MM)3.48 (2.5-4.0cm)Aortic Root3.38 (2.2-3.7cm) Aortic Cusp Exc.2.02 (1.5-2.0cm) Mitral Valve MV E Jpophkvt26.3cm/sMV A Lbpxtqbx86.7cm/sE/A ratio1.1 TDI E/Lateral E'0.0E/Medial E'0.0 Tricuspid Valve TR Peak [id number]/sTR Peak Gr.[id number] LEFT VENTRICLE The left ventricle is normal size. There is borderline to mild concentric left ventricular hypertrophy. The left ventricular function is normal. The left ventricular ejection fraction is within the normal range. No regional wall motion abnormalities noted. Transmitral Doppler flow pattern is Grade I-abnormal relaxation pattern. No left ventricle thrombus noted on this study. There is no ventricular septal defect visualized. There is no left ventricular aneurysm. There is no mass noted in the left ventricle. RIGHT VENTRICLE The right ventricle is normal size. There is normal right ventricular wall thickness. The right ventricular systolic function is normal. ATRIA The left atrium is mildly dilated. The right atrium size is normal. The interatrial septum is intact with no evidence for an atrial septal defect. AORTIC VALVE The aortic valve is mildly sclerotic. No aortic regurgitation is present. There is no aortic valvular stenosis. There is no aortic valvular vegetation. MITRAL VALVE Mitral annular calcification is mild. There is no evidence of mitral valve prolapse. There is no mitral valve stenosis. Mitral regurgitation is mild. TRICUSPID VALVE The tricuspid valve is normal in structure. There is mild tricuspid regurgitation. There is no tricuspid valve prolapse or vegetation. There is no tricuspid valve stenosis. PULMONIC VALVE The pulmonary valve is normal in structure. There is mild pulmonic valvular regurgitation. There is no pulmonic valvular stenosis. GREAT VESSELS The aortic root is normal in size. The ascending aorta is normal in size. IVC IS COMPLETELY COLLAPSED. THIS IS INDICATIVE OF HYPOVOLEMIA.
--- NOTE | 2017-04-26 16:10 | CP.PCM.PN ---
Subjective - Date & Time of Evaluation Date of Evaluation: 04/26/17 Time of Evaluation: 08:00 - Subjective Subjective: PGY1 Medicine Note for Dr. Arreaga Patient seen and examined at bedside this morning. Patient is demented, ROS is unattainable. He appears comfortable. Objective - Vital Signs/Intake and Output Vital Signs (last 24 hours): Temp Pulse Resp BP Pulse Ox 97.1 F L 70 20 158/70 H 97 04/26/17 08:03 04/26/17 13:55 04/26/17 08:03 04/26/17 13:55 04/26/17 13:55 Intake and Output: 04/26/17 04/26/17 06:59 18:59 Intake Total 1700 970 Output Total 1300 1000 Balance 400 -30 - Medications Medications: Current Medications Acetaminophen (Tylenol 325mg Tab) 650 mg PO Q6 PRN PRN Reason: Fever >100.4 F Donepezil HCl (Aricept) 10 mg PO HS [facility] Last Admin: 04/25/17 21:06 Dose: 10 mg Famotidine (Pepcid) 20 mg PO DAILY [facility] Last Admin: 04/26/17 09:15 Dose: 20 mg Heparin Sodium (Porcine) (Heparin) 5,000 units SC Q12 [facility] Last Admin: 04/26/17 09:16 Dose: 5,000 units Home Med (Patient's Own Medication) 1 tab PO BID [facility] Last Admin: 04/26/17 09:16 Dose: 1 tab Vancomycin HCl 1 gm/ Sodium (Chloride) 250 mls @ 166.7 mls/hr IVPB Q24H [facility] Last Admin: 04/26/17 14:53 Dose: 166.7 mls/hr Sodium Chloride (Sodium Chloride 0.9%) 1,000 mls @ 100 mls/hr IV .Q10H [facility] Last Admin: 04/26/17 14:59 Dose: 100 mls/hr Meropenem 500 mg/ Sodium (Chloride) 100 mls @ 100 mls/hr IVPB Q8 [facility] Last Admin: 04/26/17 13:31 Dose: 100 mls/hr Gentamicin Sulfate 120 mg/ (Sodium Chloride) 103 mls @ 100 mls/hr IVPB Q24H [facility] Last Admin: 04/25/17 22:10 Dose: 100 mls/hr Levothyroxine Sodium (Synthroid) 187.5 mcg PO DAILY@0630 [facility] Last Admin: 04/26/17 05:30 Dose: 187.5 mcg Losartan Potassium (Cozaar) 50 mg PO HS [facility] Last Admin: 04/25/17 21:06 Dose: 50 mg Memantine (Namenda) 10 mg PO BID [facility] Last Admin: 04/26/17 09:15 Dose: 10 mg Metoprolol Succinate (Toprol Xl) 50 mg PO DAILY [facility] Last Admin: 04/26/17 09:15 Dose: 50 mg Saccharomyces Boulardii (Florastor) 250 mg PO BID [facility] Last Admin: 04/26/17 09:15 Dose: 250 mg - Labs Labs: 04/26/17 07:15 04/26/17 07:15 PT 12.7 SECONDS (9.7-12.2) H 04/23/17 12:32 INR 1.1 04/23/17 12:32 APTT 31 SECONDS (21-34) 04/24/17 07:47 - Constitutional Appears: Non-toxic, No Acute Distress, Cachectic - Head Exam Head Exam: ATRAUMATIC, NORMOCEPHALIC - Eye Exam Eye Exam: EOMI - ENT Exam ENT Exam: Mucous Membranes Moist - Respiratory Exam Respiratory Exam: Clear to Ausculation Bilateral, NORMAL BREATHING PATTERN. absent: Accessory Muscle Use, Rales, Rhonchi, Wheezes, Respiratory Distress - Cardiovascular Exam Cardiovascular Exam: REGULAR RHYTHM, +S1, +S2 - GI/Abdominal Exam GI & Abdominal Exam: Soft, Normal Bowel Sounds. absent: Distended, Firm, Guarding, Rigid, Tenderness - Extremities Exam Extremities Exam: absent: Calf Tenderness, Pedal Edema, Tenderness - Neurological Exam Neurological Exam: Altered (baseline demented ), Awake - Skin Skin Exam: Dry, Normal Color, Warm Assessment and Plan - Assessment and Plan (Free Text) Assessment: UTI * Consult ID (Dr. Steele) - recs appreciated * Vanc 1g IV QD * vanc trough Wed (04/26) - 9.8 * Zosyn 2.25g IV Q6 stopped * Started on Meropenem 500mg IVPB Q8H * blood culture - gram neg rods x1 culture; no growth at 3 days x 1 culture * urine culture - E. Coli * f/u Repeat blood cultures Change in Functional Status * CT head: No acute intracranial abnormality. Chronic microvascular ischemic change. Bilateral temporal lobe as well as cerebellar lobe atrophy. Prominent ventricles. Additional findings as above. * MRI brain (04/25) - Age related neuro degenerative change identified without acute intracranial findings by standard MR criteria. Chronic lacune are identified at the bilateral thalami, right external capsule and left cerebellar peduncle. No suspicious interval findings compared prior to dated 04/23/2017 * PT/OT eval and treat * Consult case management for discharge planning * Consult palliative care - spoke with family, they understand patient's alf prognosis with AD. They just want the patient to be comfortable throughout treatment. "Do everything you can to make him better as long as he is comfortable."DNR * swallow eval and advance diet as needed - solids = puree diet; liquids = nectar thick * rapid flu - negative * carotid doppler - normal findings * ALE neg x 3 Splinter Hemorrhages of Right Fingernails * echo 04/23/17 - EF >50%, no vegetations noted. * blood culture - no growth at 24 hours Hx HTN * Metoprolol succinate 50 mg PO QD * Losartan 50 mg PO QD Hx Hypothyroidism * TSH <0.02 * T4: 2.24 * T3: 3.75 * Levothyroxine 187.5 mcg PO QD (home dose of 125mcg 1.5 tabs QD) Hx Alzheimer Disease * Namzaric 28/10 PO QD (Aricept and Namenda) * Nuedexta 20/10 PO BID Hx Prostate CA * Monitor PPX * Florastor 250 BID * DVT Risk Score: 2 * Heparin 5000 U SC Q12 * SCDs * Pepcid 20 mg QD Case discussed with Dr. Whitley Meehan Javy PGY1
[2017-04-26] MEDS ORDERED: Potassium Chloride 20 mEq/15 ml LIQ UD PO ONE (16:26)
--- NOTE | 2017-04-26 21:05 | CP.PCM.PN ---
Subjective - Date & Time of Evaluation Date of Evaluation: 04/26/17 Time of Evaluation: 05:00 - Subjective Subjective: dictated Objective - Vital Signs/Intake and Output Vital Signs (last 24 hours): Temp Pulse Resp BP Pulse Ox 98 F 76 20 180/99 H 96 04/26/17 15:00 04/26/17 15:00 04/26/17 15:00 04/26/17 15:00 04/26/17 15:00 Intake and Output: 04/26/17 04/27/17 18:59 06:59 Intake Total 970 Output Total 1000 Balance -30 - Medications Medications: Current Medications Acetaminophen (Tylenol 325mg Tab) 650 mg PO Q6 PRN PRN Reason: Fever >100.4 F Donepezil HCl (Aricept) 10 mg PO HS [facility] Last Admin: 04/25/17 21:06 Dose: 10 mg Famotidine (Pepcid) 20 mg PO DAILY [facility] Last Admin: 04/26/17 09:15 Dose: 20 mg Heparin Sodium (Porcine) (Heparin) 5,000 units SC Q12 [facility] Last Admin: 04/26/17 09:16 Dose: 5,000 units Home Med (Patient's Own Medication) 1 tab PO BID [facility] Last Admin: 04/26/17 18:57 Dose: 1 tab Meropenem 500 mg/ Sodium (Chloride) 100 mls @ 100 mls/hr IVPB Q8 [facility] Last Admin: 04/26/17 13:31 Dose: 100 mls/hr Gentamicin Sulfate 120 mg/ (Sodium Chloride) 103 mls @ 100 mls/hr IVPB Q24H [facility] Last Admin: 04/25/17 22:10 Dose: 100 mls/hr Levothyroxine Sodium (Synthroid) 187.5 mcg PO DAILY@0630 [facility] Last Admin: 04/26/17 05:30 Dose: 187.5 mcg Losartan Potassium (Cozaar) 50 mg PO HS [facility] Last Admin: 04/25/17 21:06 Dose: 50 mg Memantine (Namenda) 10 mg PO BID [facility] Last Admin: 04/26/17 18:57 Dose: 10 mg Metoprolol Succinate (Toprol Xl) 50 mg PO DAILY [facility] Last Admin: 04/26/17 09:15 Dose: 50 mg Saccharomyces Boulardii (Florastor) 250 mg PO BID [facility] Last Admin: 04/26/17 18:57 Dose: 250 mg - Labs Labs: 04/26/17 07:15 04/26/17 07:15 PT 12.7 SECONDS (9.7-12.2) H 04/23/17 12:32 INR 1.1 04/23/17 12:32 APTT 31 SECONDS (21-34) 04/24/17 07:47
--- NOTE | 2017-04-27 00:07 | PN ---
DATE: SUBJECTIVE: The patient suffers from dementia; however, his eyes are open and he does not communicate. His [id number] and daughter were there and they said that he speak 4 languages, but now with dementia, they are not able to communicate well and he is, however, waking up and opening his eyes. He was on pureed diet. PHYSICAL EXAMINATION: GENERAL: He is a thin-built male. VITAL SIGNS: T-max 98 today, pulse 76, blood pressure 180/99, is increasing and respirations are 20. HEENT: Eyes are unremarkable. NECK: Supple. LUNGS: Clear. No crackles or rales present. No accessory muscles being used. HEART: S1 and S2, regular. No murmurs appreciated. ABDOMEN: Soft and nontender. No guarding. No rigidity present. EXTREMITIES: Have no edema, clubbing, or cyanosis. LABORATORY DATA: Pending at this time. Lab showed that he has E. coli, ESBL negative and he has been on vancomycin and meropenem at this time. Blood cultures were positive. White count is 5.7, hemoglobin 12.6, hematocrit 36.6 and platelet count is 192. Sodium is 139, potassium is 3.5, chloride is 101, CO2 is 25, BUN is 19 and creatinine 0.9. He had a chest x-ray when he came in and chest x-ray showed hyperinflation with COPD and emphysematous changes, bilateral pleural thickening and upper lobe granulomatous changes, increased markings at the right lung base, nodular density, diffuse increased interstitial markings and heart size within normal limits, degenerative changes in the spine and shoulder. MEDICATIONS: At this time, his medications, he is on gentamicin and he is on meropenem and vancomycin. So at this time, I think we will take away the vancomycin and we will repeat the cultures, and we will follow. I stopped the vancomycin and continue the gentamicin and meropenem, and we will repeat the blood and the urine cultures if possible. Blood culture, one set tomorrow and also urine culture and actually blood culture was done today, so we will follow those and urine culture, but he is probably incontinent of urine. If the blood culture is negative and urine culture is negative, then we will discontinue the gentamicin and also the following day change to less broad-spectrum antibiotic but we will await to get him in to this and also to check the echo. We will follow. Francisco Das MD
[2017-04-27] MEDS: Meropenem 500 MG in Sodium Chloride 0.9% 100 ML IVPB SCH ×3 (05:15→21:17)
[2017-04-27] MEDS: Levothyroxine 125 MCG TAB PO SCH (05:30)
[2017-04-27 06:41] LABS: BASO % 0.5 % (0.0-2.0); EOS # 0.1 K/uL (0.0-0.7); EOS % 1.7 % (0.0-4.0); HEMATOCRIT 36.7 % (35.0-51.0); LYMPH # 1.2 K/uL (1.0-4.3); LYMPH % 20.1 % (20.0-40.0); MEAN CELL VOLUME 91.4 fL (80.0-94.0); MEAN CORPUSCULAR HEMOGLOBIN 31.4 pg (27.0-31.0); MEAN CORPUSCULAR HGB CONC 34.3 g/dL (33.0-37.0); MEAN PLATELET VOLUME 7.7 fL (7.2-11.7); MONO # 0.9 K/uL (0.0-0.8); MONO % 14.7 % (0.0-10.0); RED CELL DISTRIBUTION WIDTH 12.9 % (11.5-14.5); WHITE BLOOD COUNT 6.2 K/uL (4.8-10.8)
[2017-04-27 06:57] LABS: ALKALINE PHOSPHATASE 62 U/L (38-126); ALT/SGPT 40 U/L (21-72); AST/SGOT 43 U/L (17-59); BILIRUBIN,TOTAL 0.4 mg/dL (0.2-1.3); BLOOD UREA NITROGEN 13 mg/dL (9-20); CALCIUM 8.3 mg/dl (8.6-10.4); CARBON DIOXIDE 28 mmol/L (22-30); CHLORIDE 100 mmol/L (98-107); GFR AFRICAN-AMERICAN > 60; GLUCOSE,RANDOM 92 mg/dL (75-110); POTASSIUM 3.4 mmol/L (3.6-5.2); SODIUM 136 mmol/L (132-148); TOTAL PROTEIN 5.3 g/dL (6.3-8.3)
--- NOTE | 2017-04-27 07:50 | CP.PCM.PN ---
<Zoran Palafox - Last Filed: 04/27/17 18:08> Subjective - Date & Time of Evaluation Date of Evaluation: 04/27/17 Time of Evaluation: 07:50 - Subjective Subjective: PGY1 Medicine Note for Dr. Bri Washington Patient seen and examined this morning at bedside. Patient was awoken from sleep. He moved his hands from his chest to allow the physical exam, but would not answer any questions. He appeared comfortable and in no acute distress. Objective - Vital Signs/Intake and Output Vital Signs (last 24 hours): Temp Pulse Resp BP Pulse Ox 98.2 F 70 20 164/80 H 100 04/27/17 06:00 04/27/17 06:00 04/27/17 06:00 04/27/17 06:00 04/27/17 06:00 Intake and Output: 04/27/17 04/27/17 06:59 18:59 Intake Total 1550 Output Total 1800 Balance -250 - Medications Medications: Current Medications Acetaminophen (Tylenol 325mg Tab) 650 mg PO Q6 PRN PRN Reason: Fever >100.4 F Donepezil HCl (Aricept) 10 mg PO HS [facility] Last Admin: 04/26/17 21:24 Dose: 10 mg Famotidine (Pepcid) 20 mg PO DAILY [facility] Last Admin: 04/26/17 09:15 Dose: 20 mg Heparin Sodium (Porcine) (Heparin) 5,000 units SC Q12 [facility] Last Admin: 04/26/17 21:24 Dose: 5,000 units Home Med (Patient's Own Medication) 1 tab PO BID [facility] Last Admin: 04/26/17 18:57 Dose: 1 tab Meropenem 500 mg/ Sodium (Chloride) 100 mls @ 100 mls/hr IVPB Q8 [facility] Last Admin: 04/27/17 05:15 Dose: 100 mls/hr Gentamicin Sulfate 120 mg/ (Sodium Chloride) 103 mls @ 100 mls/hr IVPB Q24H [facility] Last Admin: 04/26/17 22:30 Dose: 100 mls/hr Levothyroxine Sodium (Synthroid) 187.5 mcg PO DAILY@0630 [facility] Last Admin: 04/27/17 05:30 Dose: 187.5 mcg Losartan Potassium (Cozaar) 50 mg PO HS [facility] Last Admin: 04/26/17 21:24 Dose: 50 mg Memantine (Namenda) 10 mg PO BID [facility] Last Admin: 04/26/17 18:57 Dose: 10 mg Metoprolol Succinate (Toprol Xl) 50 mg PO DAILY [facility] Last Admin: 04/26/17 09:15 Dose: 50 mg Saccharomyces Boulardii (Florastor) 250 mg PO BID [facility] Last Admin: 04/26/17 18:57 Dose: 250 mg - Labs Labs: 04/27/17 06:23 04/27/17 06:23 PT 12.7 SECONDS (9.7-12.2) H 04/23/17 12:32 INR 1.1 04/23/17 12:32 APTT 31 SECONDS (21-34) 04/24/17 07:47 - Constitutional Appears: Non-toxic, No Acute Distress - Head Exam Head Exam: ATRAUMATIC, NORMOCEPHALIC - Eye Exam Eye Exam: EOMI, Normal appearance - ENT Exam ENT Exam: Mucous Membranes Moist - Respiratory Exam Respiratory Exam: Clear to Ausculation Bilateral, NORMAL BREATHING PATTERN. absent: Accessory Muscle Use, Rales, Rhonchi, Wheezes, Respiratory Distress - Cardiovascular Exam Cardiovascular Exam: REGULAR RHYTHM, +S1, +S2 - GI/Abdominal Exam GI & Abdominal Exam: Soft, Normal Bowel Sounds. absent: Distended, Firm, Guarding, Rigid - Neurological Exam Neurological Exam: Alert, Altered (baseline dementia, refused to answer questions this morning. ), Awake - Skin Skin Exam: Dry, Normal Color, Warm Assessment and Plan - Assessment and Plan (Free Text) Assessment: UTI * Consult ID (Dr. Steele) - recs appreciated * Vanc 1g IV QD * vanc trough Wed (04/26) - 9.8 * Meropenem 500mg IVPB Q8H * Gentamicin discontinued * blood culture - E. Coli x1 culture; no growth at 4 days x 1 culture * urine culture - E. Coli * Repeat blood cultures - No growth after 24 hours x 2 Change in Functional Status * CT head: No acute intracranial abnormality. Chronic microvascular ischemic change. Bilateral temporal lobe as well as cerebellar lobe atrophy. Prominent ventricles. Additional findings as above. * MRI brain (04/25) - Age related neuro degenerative change identified without acute intracranial findings by standard MR criteria. Chronic lacune are identified at the bilateral thalami, right external capsule and left cerebellar peduncle. No suspicious interval findings compared prior to dated 04/23/2017 * PT/OT eval and treat * Consult case management for discharge planning * Consult palliative care - spoke with family, they understand patient's jail guard prognosis with AD. They just want the patient to be comfortable throughout treatment. "Do everything you can to make him better as long as he is comfortable."DNR * swallow eval and advance diet as needed - solids = puree diet; liquids = nectar thick * rapid flu - negative * carotid doppler - normal findings * ALE neg x 3 Splinter Hemorrhages of Right Fingernails * echo 04/23/17 - EF >50%, no vegetations noted. * blood culture - no growth at 24 hours Hx HTN * Metoprolol succinate 50 mg PO QD * Losartan 100 mg PO QD - increased from 50mg to 100mg Hx Hypothyroidism * TSH <0.02 * T4: 2.24 * T3: 3.75 * Levothyroxine 187.5 mcg PO QD (home dose of 125mcg 1.5 tabs QD) Hx Alzheimer Disease * Namzaric 28/10 PO QD (Aricept and Namenda) * Nuedexta 20/10 PO BID Hx Prostate CA * Monitor PPX * Florastor 250 BID * DVT Risk Score: 2 * Heparin 5000 U SC Q12 * SCDs * Pepcid 20 mg QD DISPO: Patient can be safely discharged once repeat blood cultures are negative for 72 hours. Patient's family is requesting transfer to [facility] upon discharge from hospital. Follow up with case management. Case discussed with Dr. Bri Palafox PGY1 <Kannan Washington - Last Filed: 04/27/17 19:52> Objective - Vital Signs/Intake and Output Vital Signs (last 24 hours): Temp Pulse Resp BP Pulse Ox 98.1 F 68 20 164/72 H 100 04/27/17 15:00 04/27/17 15:00 04/27/17 15:00 04/27/17 15:00 04/27/17 15:00 Intake and Output: 04/27/17 04/28/17 18:59 06:59 Intake Total 420 Output Total 2100 Balance -1680 - Medications Medications: Current Medications Acetaminophen (Tylenol 325mg Tab) 650 mg PO Q6 PRN PRN Reason: Fever >100.4 F Donepezil HCl (Aricept) 10 mg PO HS [facility] Last Admin: 04/26/17 21:24 Dose: 10 mg Famotidine (Pepcid) 20 mg PO DAILY [facility] Last Admin: 04/27/17 11:07 Dose: 20 mg Heparin Sodium (Porcine) (Heparin) 5,000 units SC Q12 [facility] Last Admin: 04/27/17 11:07 Dose: 5,000 units Home Med (Patient's Own Medication) 1 tab PO BID [facility] Last Admin: 04/27/17 17:33 Dose: 1 tab Meropenem 500 mg/ Sodium (Chloride) 100 mls @ 100 mls/hr IVPB Q8 [facility] Last Admin: 04/27/17 14:04 Dose: 100 mls/hr Sodium Chloride (Sodium Chloride 0.9%) 1,000 mls @ 100 mls/hr IV .Q10H [facility] Last Admin: 04/27/17 14:44 Dose: 100 mls/hr Levothyroxine Sodium (Synthroid) 187.5 mcg PO DAILY@0630 [facility] Last Admin: 04/27/17 05:30 Dose: 187.5 mcg Losartan Potassium (Cozaar) 50 mg PO HS [facility] Last Admin: 04/26/17 21:24 Dose: 50 mg Memantine (Namenda) 10 mg PO BID [facility] Last Admin: 04/27/17 17:33 Dose: 10 mg Metoprolol Succinate (Toprol Xl) 50 mg PO DAILY [facility] Last Admin: 04/27/17 11:08 Dose: 50 mg Potassium Chloride (K-Dur 20 Meq Er Tab) 40 meq PO DAILY [facility] Last Admin: 04/27/17 11:16 Dose: 40 meq Saccharomyces Boulardii (Florastor) 250 mg PO BID [facility] Last Admin: 04/27/17 17:33 Dose: 250 mg - Labs Labs: 04/27/17 06:23 04/27/17 06:23 PT 12.7 SECONDS (9.7-12.2) H 04/23/17 12:32 INR 1.1 04/23/17 12:32 APTT 31 SECONDS (21-34) 04/24/17 07:47 Attending/Attestation - Attestation I have personally seen and examined this patient.: Yes I have fully participated in the care of the patient.: Yes I have reviewed all pertinent clinical information, including history, physical exam and plan: Yes Notes (Text): 04/27/17 19:47 Patient was seen and examined 10:15 AM 04/27/17 Also on ROS: NOT possible as patient although awake does not respond to questioning Also on EXAM: HEENT: extraocular muscles could not be tested and pharynx could not be visualized as patient does not follow instructions SKIN: NO ulcers noted on sacrum or any leslie prominences Also on Assessment and Plan: Bactermia: E. coli as per blood culture on 04/23/17. Please note that Gentamicin was discontinued and the patient is only on Meropenem as E. coli in both the blood and urine is sensitive to it. I spoke with [employer] Carlos A and family would like Michaela for [facility]. Carlos A has already sent insurance referral and awaiting approval. Once repeat Blood Culture 04/26/17 remains negative for at least 72 hours and repeat Urine Culture 04/26/17 comes back no growth, then consider discharging patient to [facility] if approved and after discussing with ID, length of antibiotic treatment. Kannan Washington D.O.
[2017-04-27] MEDS: NUEDEXTA PO SCH ×3 (11:07→17:33)
[2017-04-27] MEDS: Metoprolol Succinate 50 mg XL Tab PO SCH (11:08)
[2017-04-27] MEDS: Saccharomyces Boulardi 250 mg Cap PO SCH ×2 (11:09→17:33)
[2017-04-27] MEDS: Potassium Chloride 20 mEq ER Tab PO SCH (11:16)
--- NOTE | 2017-04-27 11:51 | CARD ---
APPROVED REPORT EKG Measurement Heart [id number] OK [id number] <Conclusion> Normal sinus rhythm Possible Left atrial enlargement Incomplete right bundle branch block Borderline ECG
[2017-04-27] MEDS: Sodium Chloride 0.9% 1,000 ML IV SCH (14:44)
[2017-04-27] MEDS ORDERED: Potassium Chloride 20 mEq ER Tab PO ONE (16:19)
--- NOTE | 2017-04-27 17:27 | CP.PCM.PN ---
Subjective - Date & Time of Evaluation Date of Evaluation: 04/27/17 Time of Evaluation: 03:00 - Subjective Subjective: dictated Objective - Vital Signs/Intake and Output Vital Signs (last 24 hours): Temp Pulse Resp BP Pulse Ox 98.1 F 68 20 164/72 H 100 04/27/17 15:00 04/27/17 15:00 04/27/17 15:00 04/27/17 15:00 04/27/17 15:00 Intake and Output: 04/27/17 04/27/17 06:59 18:59 Intake Total 1550 420 Output Total 1800 2100 Balance -250 -1680 - Medications Medications: Current Medications Acetaminophen (Tylenol 325mg Tab) 650 mg PO Q6 PRN PRN Reason: Fever >100.4 F Donepezil HCl (Aricept) 10 mg PO HS [facility] Last Admin: 04/26/17 21:24 Dose: 10 mg Famotidine (Pepcid) 20 mg PO DAILY [facility] Last Admin: 04/27/17 11:07 Dose: 20 mg Heparin Sodium (Porcine) (Heparin) 5,000 units SC Q12 [facility] Last Admin: 04/27/17 11:07 Dose: 5,000 units Home Med (Patient's Own Medication) 1 tab PO BID [facility] Last Admin: 04/27/17 11:08 Dose: 1 tab Meropenem 500 mg/ Sodium (Chloride) 100 mls @ 100 mls/hr IVPB Q8 [facility] Last Admin: 04/27/17 14:04 Dose: 100 mls/hr Sodium Chloride (Sodium Chloride 0.9%) 1,000 mls @ 100 mls/hr IV .Q10H [facility] Last Admin: 04/27/17 14:44 Dose: 100 mls/hr Levothyroxine Sodium (Synthroid) 187.5 mcg PO DAILY@0630 [facility] Last Admin: 04/27/17 05:30 Dose: 187.5 mcg Losartan Potassium (Cozaar) 50 mg PO HS [facility] Last Admin: 04/26/17 21:24 Dose: 50 mg Memantine (Namenda) 10 mg PO BID [facility] Last Admin: 04/27/17 11:07 Dose: 10 mg Metoprolol Succinate (Toprol Xl) 50 mg PO DAILY [facility] Last Admin: 04/27/17 11:08 Dose: 50 mg Potassium Chloride (K-Dur 20 Meq Er Tab) 40 meq PO DAILY [facility] Last Admin: 04/27/17 11:16 Dose: 40 meq Saccharomyces Boulardii (Florastor) 250 mg PO BID [facility] Last Admin: 04/27/17 11:09 Dose: 250 mg - Labs Labs: 04/27/17 06:23 04/27/17 06:23 PT 12.7 SECONDS (9.7-12.2) H 04/23/17 12:32 INR 1.1 04/23/17 12:32 APTT 31 SECONDS (21-34) 04/24/17 07:47
--- NOTE | 2017-04-27 21:39 | PN ---
INFECTIOUS DISEASE FOLLOWUP SUBJECTIVE: The patent is afebrile. He is very drowsy. PHYSICAL EXAMINATION: GENERAL: He is does have dementia, but he is drowsy right now. He is thin built. VITAL SIGNS: T-max is 98.1, pulse is 68, blood pressure 164/72, respirations 20. NECK: Supple. LUNGS: Clear. No crackles or rales present. HEART: S1 and S2 is regular. ABDOMEN: Soft, nontender. No guarding. No rigidity present. EXTREMITIES: Have no edema, clubbing or cyanosis. LABORATORY DATA: White count of 6.2, hemoglobin 12.6, hematocrit 36.7, platelet count is 195. Sodium is 136, potassium 3.4, is low, is 100, creatinine is 0.8, BUN is 13. RECOMMENDATIONS: The patient is off vancomycin at this time. He remains on meropenem 500 q. 8, antibiotics and he is getting supplement of potassium. Gentamicin was discontinued last night and awaiting for the blood culture; however, to be negative. Blood cultures were ordered yesterday and they are received and we are waiting for their cultures. Urine culture was also send to see if he is clearing the infection. He did come in with altered mental status, septicemia, E. Coli and urinary tract infection and has prostate cancer. Francisco Das MD
[2017-04-28] MEDS: Sodium Chloride 0.9% 1,000 ML IV SCH ×3 (03:30→09:07)
[2017-04-28] MEDS: Meropenem 500 MG in Sodium Chloride 0.9% 100 ML IVPB SCH ×2 (05:49→14:11)
[2017-04-28] MEDS: Levothyroxine 125 MCG TAB PO SCH (05:49)
[2017-04-28 07:08] LABS: BASO # 0.1 K/uL (0.0-0.2); BASO % 0.9 % (0.0-2.0); EOS # 0.3 K/uL (0.0-0.7); EOS % 3.2 % (0.0-4.0); HEMATOCRIT 41.5 % (35.0-51.0); LYMPH # 1.2 K/uL (1.0-4.3); MEAN CELL VOLUME 92.5 fL (80.0-94.0); MEAN CORPUSCULAR HEMOGLOBIN 31.5 pg (27.0-31.0); MEAN PLATELET VOLUME 7.7 fL (7.2-11.7); MONO # 1.1 K/uL (0.0-0.8); MONO % 12.2 % (0.0-10.0); NRBC % 0.1 % (0.0-2.0); RED CELL DISTRIBUTION WIDTH 12.9 % (11.5-14.5); WHITE BLOOD COUNT 8.8 K/uL (4.8-10.8)
[2017-04-28 07:47] LABS: CHLORIDE 99 mmol/L (98-107); POTASSIUM 4.5 mmol/L (3.6-5.2); SODIUM 140 mmol/L (132-148)
[2017-04-28 07:49] LABS: BILIRUBIN,TOTAL 0.5 mg/dL (0.2-1.3); CARBON DIOXIDE 30 mmol/L (22-30); GFR AFRICAN-AMERICAN > 60
[2017-04-28 07:50] LABS: ALB/GLOB RATIO 0.9 (1.0-2.1); ALKALINE PHOSPHATASE 76 U/L (38-126); ALT/SGPT 38 U/L (21-72); AST/SGOT 41 U/L (17-59); BLOOD UREA NITROGEN 12 mg/dL (9-20); CALCIUM 8.5 mg/dl (8.6-10.4); GLUCOSE,RANDOM 92 mg/dL (75-110)
[2017-04-28] MEDS: Saccharomyces Boulardi 250 mg Cap PO SCH ×2 (09:04→16:59)
[2017-04-28] MEDS: NUEDEXTA PO SCH ×2 (09:04→16:59)
[2017-04-28] MEDS: Potassium Chloride 20 mEq ER Tab PO SCH (09:04)
[2017-04-28] MEDS: Metoprolol Succinate 50 mg XL Tab PO SCH (09:05)
[2017-04-28 17:03] VITALS: BP 174/72; PULSE 65; RESP 18; TEMP 98.6; O2SAT 100
--- NOTE | 2017-04-29 03:31 | CP.PCM.DIS ---
Provider - Provider Date of Admission: 04/23/17 13:32 Attending physician: Silverio Arreaga MD Time Spent in preparation of Discharge (in minutes): 30 Hospital Course - Lab Results Lab Results: Micro Results 04/26/17 17:00 Blood Blood Culture - Preliminary NO GROWTH AFTER 48 HOURS 04/26/17 17:30 Blood Blood Culture - Preliminary NO GROWTH AFTER 48 HOURS 04/23/17 12:15 Blood Blood Culture - Final NO GROWTH AFTER 5 DAYS 04/23/17 12:15 Blood Gram Stain - Final TEST NOT PERFORMED 04/26/17 21:49 Urine,Catheterized Urine Culture - Final No Growth (<1,000 CFU/ML) 04/23/17 12:25 Blood Blood Culture - Final Escherichia Coli 04/23/17 12:25 Blood Gram Stain - Final 04/23/17 13:00 Urine,[place]campo Urine Culture - Final Escherichia Coli Most Recent Lab Values WBC 8.8 K/uL (4.8-10.8) 04/28/17 06:57 RBC 4.49 Mil/uL (4.40-5.90) 04/28/17 06:57 Hgb 14.1 g/dL (12.0-18.0) 04/28/17 06:57 Hct 41.5 % (35.0-51.0) 04/28/17 06:57 MCV 92.5 fL (80.0-94.0) 04/28/17 06:57 MCH 31.5 pg (27.0-31.0) H 04/28/17 06:57 MCHC 34.0 g/dL (33.0-37.0) 04/28/17 06:57 RDW 12.9 % (11.5-14.5) 04/28/17 06:57 Plt Count 208 K/uL (130-400) 04/28/17 06:57 MPV 7.7 fL (7.2-11.7) 04/28/17 06:57 Neut % (Auto) 69.7 % (50.0-75.0) 04/28/17 06:57 Lymph % (Auto) 14.0 % (20.0-40.0) L 04/28/17 06:57 [place] % (Auto) 12.2 % (0.0-10.0) H 04/28/17 06:57 Eos % (Auto) 3.2 % (0.0-4.0) 04/28/17 06:57 Baso % (Auto) 0.9 % (0.0-2.0) 04/28/17 06:57 Neut # 6.1 K/uL (1.8-7.0) 04/28/17 06:57 Lymph # 1.2 K/uL (1.0-4.3) 04/28/17 06:57 [place] # 1.1 K/uL (0.0-0.8) H 04/28/17 06:57 Eos # 0.3 K/uL (0.0-0.7) 04/28/17 06:57 Baso # 0.1 K/uL (0.0-0.2) 04/28/17 06:57 Neutrophils % (Manual) 81 % (50-75) H 04/23/17 12:32 Band Neutrophils % 2 % (0-2) 04/23/17 12:32 Lymphocytes % (Manual) 3 % (20-40) L 04/23/17 12:32 Reactive Lymphs % 1 % (0-0) H 04/23/17 12:32 Monocytes % (Manual) 13 % (0-10) H 04/23/17 12:32 Platelet Estimate Normal (NORMAL) 04/23/17 12:32 RBC Morphology Normal 04/23/17 12:32 PT 12.7 SECONDS (9.7-12.2) H 04/23/17 12:32 INR 1.1 04/23/17 12:32 APTT 31 SECONDS (21-34) 04/24/17 07:47 pO2 18 mm/Hg (30-55) L 04/23/17 12:35 VBG pH 7.33 (7.32-7.43) 04/23/17 12:35 VBG pCO2 56 mmHg (40-60) 04/23/17 12:35 VBG HCO3 24.7 mmol/L 04/23/17 12:35 VBG Total CO2 31.2 mmol/L (22-28) H 04/23/17 12:35 VBG O2 Sat (Calc) 36.2 % (40-65) L 04/23/17 12:35 VBG Base Excess 2.3 mmol/L (0.0-2.0) H 04/23/17 12:35 VBG Potassium 4.2 mmol/L (3.6-5.2) 04/23/17 12:35 Sodium 133.0 mmol/l (132-148) 04/23/17 12:35 Chloride 101.0 mmol/L (98-107) 04/23/17 12:35 Glucose 129 mg/dl (75-110) H 04/23/17 12:35 Lactate 3.2 mmol/L (0.7-2.1) H 04/23/17 12:35 Sodium 140 mmol/L (132-148) 04/28/17 06:57 Potassium 4.5 mmol/L (3.6-5.2) 04/28/17 06:57 Chloride 99 mmol/L (98-107) 04/28/17 06:57 Carbon Dioxide 30 mmol/L (22-30) 04/28/17 06:57 Anion Gap 15 (10-20) 04/28/17 06:57 BUN 12 mg/dL (9-20) 04/28/17 06:57 Creatinine 1.0 MG/DL (0.8-1.5) 04/28/17 06:57 Est GFR ( Amer) > 60 04/28/17 06:57 Est GFR (Non-Af Amer) > 60 04/28/17 06:57 Random Glucose 92 mg/dL (75-110) 04/28/17 06:57 Calcium 8.5 mg/dl (8.6-10.4) L 04/28/17 06:57 Phosphorus 3.3 mg/dL (2.5-4.5) 04/23/17 12:32 Magnesium 1.9 mg/dL (1.6-2.3) 04/23/17 12:32 Total Bilirubin 0.5 mg/dL (0.2-1.3) 04/28/17 06:57 AST 41 U/L (17-59) 04/28/17 06:57 ALT 38 U/L (21-72) 04/28/17 06:57 Alkaline Phosphatase 76 U/L (38-126) 04/28/17 06:57 Total Creatine Kinase 54 U/L (55-170) L 04/24/17 03:12 CK-MB (Mass) 0.83 ng/mL (0.0-3.38) 04/24/17 03:12 Troponin I 0.0180 ng/mL (0.00-0.120) 04/23/17 12:32 Troponin I, Quant 0.0500 ng/mL (0.00-0.120) 04/24/17 03:12 Total Protein 6.0 g/dL (6.3-8.3) L 04/28/17 06:57 Albumin 2.9 g/dL (3.5-5.0) L 04/28/17 06:57 Globulin 3.1 gm/dL (2.2-3.9) 04/28/17 06:57 Albumin/Globulin Ratio 0.9 (1.0-2.1) L 04/28/17 06:57 Free T4 2.24 ng/dL (0.78-2.19) H 04/23/17 12:32 Free T3 pg/mL 3.75 pg/mL (2.77-5.27) 04/23/17 12:32 TSH 3rd Generation < 0.02 mIU/L (0.46-4.68) L 04/23/17 12:32 Venous Blood Potassium 4.2 mmol/L (3.6-5.2) 04/23/17 12:35 Urine Color Yellow (YELLOW) 04/23/17 12:32 Urine Clarity Hazy (Clear) 04/23/17 12:32 Urine pH 7.0 (5.0-8.0) 04/23/17 12:32 Ur Specific [place] 1.015 (1.003-1.030) 04/23/17 12:32 Urine Protein 1+ mg/dL (NEGATIVE) H 04/23/17 12:32 Urine Glucose (UA) Normal mg/dL (Normal) 04/23/17 12:32 Urine Ketones Negative mg/dL (NEGATIVE) 04/23/17 12:32 Urine Blood 2+ (NEGATIVE) H 04/23/17 12:32 Urine Nitrate Positive (NEGATIVE) H 04/23/17 12:32 Urine Bilirubin Negative (NEGATIVE) 04/23/17 12:32 Urine Urobilinogen Normal mg/dL (0.2-1.0) 04/23/17 12:32 Ur Leukocyte Esterase 3+ [place]/uL (Negative) H 04/23/17 12:32 Urine WBC (Auto) 131 /hpf (0-5) H 04/23/17 12:32 Urine RBC (Auto) 19 /hpf (0-3) H 04/23/17 12:32 Vancomycin Trough 9.8 ug/mL (5.0-10.0) 04/26/17 14:02 Influenza Typ A,B (EIA) Negative for flu a/b (NEGATIVE) 04/23/17 15:28 Discharge Exam - Head Exam Head Exam: ATRAUMATIC, NORMOCEPHALIC Discharge Plan - Discharge Medications Prescriptions: amLODIPine [Norvasc] 5 mg PO DAILY #30 tab Ciprofloxacin HCl [Cipro] 500 mg PO Q12H #8 tab Levothyroxine [Synthroid] 0.125 mg PO DAILY #30 tab Losartan Potassium 50 mg PO DAILY #30 tablet Memantine HCl/Donepezil HCl [Namzaric 14 mg-10 mg Capsule] 1 each PO DAILY #30 cap.spr.24 Metoprolol Succinate [Toprol XL] 50 mg PO DAILY #30 tab - Follow Up Plan Condition: FAIR Disposition: REHAB FACILITY/REHAB UNIT Instructions: Metoprolol (By mouth), Levothyroxine (By mouth), Amlodipine (By mouth), Losartan (By mouth), Memantine (By mouth), Urinary Tract Infection in Men (DC), Altered Mental Status (GEN) Additional Instructions: Patient is to be discharged to [facility], as per Dr. Severino. Patient is to continue taking medications as directed. He is to follow up with his Primary Care Physician within one week of discharge. Any new or worsening symptoms, please return to the hospital. Discharge medications: Cipro 500mg PO Q12H Norvasc 5mg PO daily Namzaric (Memantine HCl-Donepezil HCl) 14mg - 10mg capsule Metoprolol Succinate 50mg PO daily Cozaar 50mg PO daily Synthroid 125mcg PO daily
== END 2017-04-28 20:36 | DRG 872 ==
LOC: C.ER 11:58 → C.9E 13:32 → C.3T 14:19
PROVIDERS: ADMIT Internal Medicine; ATTEND Internal Medicine
DX: A41.51 Sepsis due to Escherichia coli [E. coli] (principal); N39.0 Urinary tract infection, site not specified; G30.9 Alzheimer's disease, unspecified; J43.9 Emphysema, unspecified; F02.80 Dementia in other diseases classified elsewhere, unspecified severity, without behavioral disturbance, psychotic disturbance, mood disturbance, and anxiety; R65.20 Severe sepsis without septic shock; N40.1 Benign prostatic hyperplasia with lower urinary tract symptoms; I10 Essential (primary) hypertension; E03.9 Hypothyroidism, unspecified; Z85.46 Personal history of malignant neoplasm of prostate; Z66 Do not resuscitate; Z51.5 Encounter for palliative care; S60.459A Superficial foreign body of unspecified finger, initial encounter; R13.10 Dysphagia, unspecified; L60.8 Other nail disorders

== ENCOUNTER 2017-05-12 16:25 | Inpatient (IN) | payer MEDICARE, MEDICAID ==
[2017-05-12 17:34] LABS: BASO # 0.1 K/uL (0.0-0.2); BASO % 0.7 % (0.0-2.0); EOS % 0.5 % (0.0-4.0); HEMATOCRIT 41.5 % (35.0-51.0); LYMPH # 2.4 K/uL (1.0-4.3); MEAN CELL VOLUME 91.5 fL (80.0-94.0); MEAN CORPUSCULAR HEMOGLOBIN 30.5 pg (27.0-31.0); MEAN CORPUSCULAR HGB CONC 33.3 g/dL (33.0-37.0); MEAN PLATELET VOLUME 7.1 fL (7.2-11.7); MONO # 0.5 K/uL (0.0-0.8); MONO % 6.3 % (0.0-10.0); NRBC % 0.1 % (0.0-2.0); RED CELL DISTRIBUTION WIDTH 13.2 % (11.5-14.5); WHITE BLOOD COUNT 8.4 K/uL (4.8-10.8)
[2017-05-12 17:36] LABS: URINE BILIRUBIN NEGATIVE (NEGATIVE); URINE BLOOD NEGATIVE (NEGATIVE); URINE COLOR Straw (YELLOW); URINE GLUCOSE (UA) NORMAL (Normal); URINE KETONE NEGATIVE (NEGATIVE); URINE LEUKOCYTE ESTERASE NEG Leu/uL (Negative); URINE PROTEIN NEGATIVE (NEGATIVE); URINE UROBILINOGEN NORMAL mg/dL (0.2-1.0); WBC URINE < 1 /hpf (0-5)
[2017-05-12 17:45] LABS: CHLORIDE 100 mmol/L (98-107)
[2017-05-12 17:46] LABS: SODIUM 136 mmol/L (132-148)
[2017-05-12 17:48] LABS: ALB/GLOB RATIO 1.1 (1.0-2.1); ALKALINE PHOSPHATASE 113 U/L (38-126); ALT/SGPT 54 U/L (21-72); AST/SGOT 63 U/L (17-59); BILIRUBIN,TOTAL 0.6 mg/dL (0.2-1.3); BLOOD UREA NITROGEN 33 mg/dL (9-20); CALCIUM 10.2 mg/dl (8.6-10.4); CARBON DIOXIDE 21 mmol/L (22-30); GFR AFRICAN-AMERICAN 38; GLUCOSE,RANDOM 90 mg/dL (75-110); TOTAL PROTEIN 8.6 g/dL (6.3-8.3)
[2017-05-12 17:49] LABS: POTASSIUM 5.4 mmol/L (3.6-5.2)
--- NOTE | 2017-05-12 17:49 | CT ---
PROCEDURE: CT scan brain dated 05/12/2017 HISTORY: r/o ICH COMPARISON: Comparison made with prior CT scan brain 04/23/2017. TECHNIQUE: Axial computed tomography images were obtained through the head/brain without intravenous contrast. Radiation dose: Total exam DLP = 904.35 mGy-cm. This CT exam was performed using one or more of the following dose reduction techniques: Automated exposure control, adjustment of the mA and/or kV according to patient size, and/or use of iterative reconstruction technique. FINDINGS: HEMORRHAGE: No acute parenchymal, subarachnoid or extra-axial hemorrhage. BRAIN: Significant diffuse/confluent chronic white matter ischemic changes again seen extending peripherally into the deep and subcortical white matter both cerebral hemispheres. There is some extension of these changes into the white matter tracts of both basal nuclei with a few scattered more discrete bilateral basal nuclei chronic lacunar-type infarcts. There may also be a few tiny brainstem chronic lacunar type infarcts noted as well. . Moderate to significant volume loss. VENTRICLES: No obstructive hydrocephalus. . CALVARIUM: No acute calvarial fractures. PARANASAL SINUSES: Unremarkable as visualized. No significant inflammatory changes. MASTOID AIR CELLS: Unremarkable as visualized. No inflammatory changes. OTHER FINDINGS: Changes of bilateral cataract surgery. Senile calcifications seen at the insertion sites of the extraocular musculature both globes. IMPRESSION: No acute intracranial hemorrhage. Significant diffuse/ confluent chronic white matter ischemic changes. There are also scattered chronic bilateral basal nuclei lacunar type infarcts. Questionable chronic brainstem lacunar type infarcts Significant atrophy
--- NOTE | 2017-05-12 18:00 | C.PDOC ---
History Of Present Illness 87 y/o male, with PMHx of alzheimer's disease, and Pakinson's disease, is sent to ED from senior care for fall. As per NH note, pt was in a wheelchair, was trying to stand up when he felt dizzy and fell to the floor. No LOC. No documented fever, or cough as per NH. Pt was discharged from hospital 2 weeks ago for UTI. No other complaints at this time. - HPI Chief Complaint (Nursing): Trauma History Per: Patient History/Exam Limitations: no limitations Associated Symptoms: Dizziness Recent travel outside of the [place]: No Additional History Per: Patient, Prison Past Medical History Reviewed: Historical Data, Nursing Documentation, Vital Signs Vital Signs: Last Vital Signs Temp 97.9 F 05/13/17 08:00 Pulse 71 05/13/17 12:00 Resp 20 05/13/17 08:00 BP 168/80 H 05/13/17 08:00 Pulse Ox 97 05/13/17 08:00 - Medical History PMH: Alzheimer's Disease, Benign Prostatic Hyperplasia, Dementia, HTN, Hypothyroidism Family History: States: Unknown Family Hx - Social History Hx Alcohol Use: No Hx Substance Use: No - Immunization History Hx Tetanus Toxoid Vaccination: No Hx Influenza Vaccination: Yes (2016) Hx Pneumococcal Vaccination: Yes Review Of Systems Except As Marked, All Systems Reviewed And Found Negative. Constitutional: Negative for: Fever, Chills Cardiovascular: Negative for: Chest Pain, Palpitations Respiratory: Negative for: Cough, Shortness of Breath Gastrointestinal: Negative for: Nausea, Vomiting, Abdominal Pain Neurological: Positive for: Dizziness. Negative for: Weakness, Numbness, Headache Physical Exam - Physical Exam Appears: Non-toxic, No Acute Distress, Other (thin) Skin: Normal Color, Warm, Dry Head: Atraumatic, Normacephalic Eye(s): bilateral: Normal Inspection, PERRL, EOMI Oral Mucosa: Moist Neck: Normal ROM, Supple Chest: Symmetrical Cardiovascular: Murmur (systolic) Respiratory: Normal Breath Sounds, No Rales, No Rhonchi, No Wheezing Gastrointestinal/Abdominal: Soft, No Tenderness Extremity: Normal ROM Neurological/Psych: Oriented x3, Normal Speech ED Course And Treatment - Laboratory Results Result Diagrams: 05/13/17 07:03 05/13/17 07:03 ECG: Interpreted By Me, Viewed By Me ECG Rhythm: Sinus Rhythm ECG Interpretation: No Acute Changes Interpretation Of ECG: Normal axis, and intervals. Rate From EC (bpm) O2 Sat by Pulse Oximetry: 99 (RA) Pulse Ox Interpretation: Normal - CT Scan/US CT - Head Other Rad Studies (CT/US): Read By Radiologist, Radiology Report Reviewed CT/US Interpretation: PROCEDURE: CT scan brain dated 05/12/2017. HISTORY: r/ o ICH. COMPARISON: Comparison made with prior CT scan brain 04/23/2017. TECHNIQUE: Axial computed tomography images were obtained through the head/ brain without intravenous contrast. Radiation dose: Total exam DLP = 904.35 mGy-cm. This CT exam was performed using one or more of the following dose reduction techniques: Automated exposure control, adjustment of the mA and/or kV according to patient size, and/or use of iterative reconstruction technique. FINDINGS: HEMORRHAGE: No acute parenchymal, subarachnoid or extra-axial hemorrhage. BRAIN: Significant diffuse/confluent chronic white matter ischemic changes again seen extending peripherally into the deep and subcortical white matter both cerebral hemispheres. There is some extension of these changes into the white matter tracts of both basal nuclei with a few scattered more discrete bilateral basal nuclei chronic lacunar-type infarcts. There may also be a few tiny brainstem chronic lacunar type infarcts noted as well. . Moderate to significant volume loss. VENTRICLES: No obstructive hydrocephalus. . CALVARIUM: No acute calvarial fractures. PARANASAL SINUSES: Unremarkable as visualized. No significant inflammatory changes. MASTOID AIR CELLS: Unremarkable as visualized. No inflammatory changes. OTHER FINDINGS: Changes of bilateral cataract surgery. Senile calcifications seen at the insertion sites of the extraocular musculature both globes. IMPRESSION: No acute intracranial hemorrhage. Significant diffuse/ confluent chronic white matter ischemic changes. There are also scattered chronic bilateral basal nuclei lacunar type infarcts. Questionable chronic brainstem lacunar type infarcts. Significant atrophy Progress Note: EKG, blood work, CXR, head CT ordered and reviewed. Pt was given IV fluids, and Sodium Polystyrene Sulfonate. Disposition - Disposition Disposition: HOSPITALIZED Disposition Time: 18:30 Condition: STABLE - Clinical Impression Clinical Impression: Fall, Acute renal failure, Dehydration - Scribe Statement The provider has reviewed the documentation as recorded by the Giancarlo Washington All medical record entries made by the Joeyibmarie were at my direction and personally dictated by me. I have reviewed the chart and agree that the record accurately reflects my personal performance of the history, physical exam, medical decision making, and the department course for this patient. I have also personally directed, reviewed, and agree with the discharge instructions and disposition.
[2017-05-12] MEDS ORDERED: Sod Polystyrene Sulf 15 gm/60 ml Susp PO STA (18:08)
[2017-05-12] MEDS ORDERED: Sod Polystyrene Sulf 15 gm/60 ml Susp ONE (18:57)
[2017-05-12] MEDS ORDERED: Sodium Chloride 0.9% 1,000 ML ONE (18:57)
[2017-05-12] MEDS: Sodium Chloride 0.9% 1,000 ML IV SCH (18:58)
[2017-05-12 19:17] LABS: THYROID STIMULATING HORMONE 0.25 mIU/L (0.46-4.68)
--- NOTE | 2017-05-12 23:24 | CP.PCM.HP ---
Past Patient History - Past Medical History & Family History Past Medical History?: Yes - Past Social History Smoking Status: Never Smoked - CARDIAC Hx Hypertension: Yes - NEUROLOGICAL Hx Alzheimer's Disease: Yes Hx Dementia: Yes - ENDOCRINE/METABOLIC Hx Hypothyroidism: Yes - MUSCULOSKELETAL/RHEUMATOLOGICAL Hx Falls: No - GENITOURINARY/GYNECOLOGICAL Hx Prostate Problems: Yes - PSYCHIATRIC Hx Substance Use: No - SURGICAL HISTORY Hx Surgeries: Yes Other/Comment: Prostate surgery - ANESTHESIA Hx Anesthesia: Yes Hx Anesthesia Reactions: No Meds Allergies/Adverse Reactions: Allergies Allergy/AdvReac Type Severity Reaction Status Date / Time No Known Allergies Allergy Verified 05/12/17 16:29 Results - Vital Signs Recent Vital Signs: Last Vital Signs Temp 98.3 F 05/12/17 20:41 Pulse 77 05/12/17 22:26 Resp 18 05/12/17 20:41 BP 143/71 05/12/17 20:41 Pulse Ox 100 05/12/17 20:41 - Labs Result Diagrams: 05/12/17 17:24 05/12/17 17:24 Labs: Laboratory Results - last 24 hr 05/12/17 05/12/17 05/12/17 17:24 17:24 17:24 WBC 8.4 RBC 4.53 Hgb 13.8 Hct 41.5 MCV 91.5 MCH 30.5 MCHC 33.3 RDW 13.2 Plt Count 437 H D MPV 7.1 L Neut % (Auto) 63.5 Lymph % (Auto) 29.0 [place] % (Auto) 6.3 Eos % (Auto) 0.5 Baso % (Auto) 0.7 Neut # 5.3 Lymph # 2.4 [place] # 0.5 Eos # 0.0 Baso # 0.1 Sodium 136 Potassium 5.4 H Chloride 100 Carbon Dioxide 21 L Anion Gap 20 BUN 33 H Creatinine 2.0 H Est GFR ( Amer) 38 Est GFR (Non-Af Amer) 32 Random Glucose 90 Calcium 10.2 Total Bilirubin 0.6 AST 63 H D ALT 54 Alkaline Phosphatase 113 Troponin I < 0.0120 Total Protein 8.6 H Albumin 4.5 Globulin 4.1 H Albumin/Globulin Ratio 1.1 Free T4 Total T3 1.21 L TSH 3rd Generation 0.25 L Urine Color Straw Urine Clarity Clear Urine pH 7.0 Ur Specific [place] 1.010 Urine Protein Negative Urine Glucose (UA) Normal Urine Ketones Negative Urine Blood Negative Urine Nitrate Negative Urine Bilirubin Negative Urine Urobilinogen Normal Ur Leukocyte Esterase Neg Urine WBC (Auto) < 1 05/12/17 17:24 WBC RBC Hgb Hct MCV MCH MCHC RDW Plt Count MPV Neut % (Auto) Lymph % (Auto) [place] % (Auto) Eos % (Auto) Baso % (Auto) Neut # Lymph # [place] # Eos # Baso # Sodium Potassium Chloride Carbon Dioxide Anion Gap BUN Creatinine Est GFR ( Amer) Est GFR (Non-Af Amer) Random Glucose Calcium Total Bilirubin AST ALT Alkaline Phosphatase Troponin I Total Protein Albumin Globulin Albumin/Globulin Ratio Free T4 2.00 Total T3 TSH 3rd Generation Urine Color Urine Clarity Urine pH Ur Specific [place] Urine Protein Urine Glucose (UA) Urine Ketones Urine Blood Urine Nitrate Urine Bilirubin Urine Urobilinogen Ur Leukocyte Esterase Urine WBC (Auto)
[2017-05-13] MEDS: Levothyroxine 125 MCG TAB PO SCH (06:50)
[2017-05-13] MEDS: Sodium Chloride 0.9% 1,000 ML IV SCH ×3 (07:06→23:42)
[2017-05-13 07:27] LABS: BASO # 0.1 K/uL (0.0-0.2); BASO % 1.1 % (0.0-2.0); EOS # 0.1 K/uL (0.0-0.7); EOS % 1.6 % (0.0-4.0); HEMATOCRIT 40.5 % (35.0-51.0); LYMPH % 29.8 % (20.0-40.0); MEAN CELL VOLUME 92.8 fL (80.0-94.0); MEAN CORPUSCULAR HEMOGLOBIN 30.9 pg (27.0-31.0); MEAN CORPUSCULAR HGB CONC 33.3 g/dL (33.0-37.0); MEAN PLATELET VOLUME 7.6 fL (7.2-11.7); MONO # 0.6 K/uL (0.0-0.8); MONO % 8.4 % (0.0-10.0); NRBC % 0.1 % (0.0-2.0); RED CELL DISTRIBUTION WIDTH 13.1 % (11.5-14.5); WHITE BLOOD COUNT 6.7 K/uL (4.8-10.8)
[2017-05-13 07:33] LABS: POTASSIUM 4.6 mmol/L (3.6-5.2)
[2017-05-13 07:35] LABS: ALB/GLOB RATIO 0.9 (1.0-2.1); BILIRUBIN,TOTAL 0.5 mg/dL (0.2-1.3); TOTAL PROTEIN 7.7 g/dL (6.3-8.3)
[2017-05-13 07:36] LABS: CALCIUM 9.2 mg/dl (8.6-10.4)
--- NOTE | 2017-05-13 09:08 | RAD ---
PROCEDURE: CHEST RADIOGRAPH, 1 VIEW HISTORY: r/o infiltrate COMPARISON: Comparison is made to 04/23/2017 FINDINGS: LUNGS: No evidence of new infiltrate or consolidation in the lungs PLEURA: No pneumothorax or pleural fluid seen. CARDIOVASCULAR: Normal. OSSEOUS STRUCTURES: No significant abnormalities. VISUALIZED UPPER ABDOMEN: Normal. OTHER FINDINGS: None. IMPRESSION: No active disease.
[2017-05-13] MEDS: Enoxaparin 40 mg Syringe SC SCH (10:34)
[2017-05-13] MEDS: Pantoprazole 20 mg EC Tab PO SCH (10:35)
[2017-05-13] MEDS: Metoprolol Succinate 50 mg XL Tab PO SCH (10:35)
--- NOTE | 2017-05-13 17:05 | CP.PCM.CON ---
History of Present Illness - History of Present Illness History of Present Illness: CONSULT DICTATED SDAT HYPOPERFUSION SYNDROME RESUME NAMENDA PT KEEP BP AROUND MAP 100 EEG Past Patient History - Past Medical History & Family History Past Medical History?: Yes - Past Social History Smoking Status: Never Smoked - CARDIAC Hx Hypertension: Yes - NEUROLOGICAL Hx Alzheimer's Disease: Yes Hx Dementia: Yes - ENDOCRINE/METABOLIC Hx Hypothyroidism: Yes - MUSCULOSKELETAL/RHEUMATOLOGICAL Hx Falls: No - GENITOURINARY/GYNECOLOGICAL Hx Prostate Problems: Yes - PSYCHIATRIC Hx Substance Use: No - SURGICAL HISTORY Hx Surgeries: Yes Other/Comment: Prostate surgery - ANESTHESIA Hx Anesthesia: Yes Hx Anesthesia Reactions: No Meds Allergies/Adverse Reactions: Allergies Allergy/AdvReac Type Severity Reaction Status Date / Time No Known Allergies Allergy Verified 05/12/17 16:29 - Medications Medications: Current Medications Amlodipine Besylate (Norvasc) 5 mg PO DAILY [facility] Last Admin: 05/13/17 10:35 Dose: 5 mg Enoxaparin Sodium (Lovenox) 40 mg SC DAILY [facility] Last Admin: 05/13/17 10:34 Dose: 40 mg Sodium Chloride (Sodium Chloride 0.9%) 1,000 mls @ 100 mls/hr IV .Q10H [facility] Last Admin: 05/13/17 07:06 Dose: 100 mls/hr Levothyroxine Sodium (Synthroid) 125 mcg PO DAILY@0630 [facility] Last Admin: 05/13/17 06:50 Dose: 125 mcg Losartan Potassium (Cozaar) 50 mg PO DAILY [facility] Last Admin: 05/13/17 10:35 Dose: 50 mg Memantine (Namenda) 10 mg PO BID [facility] Metoprolol Succinate (Toprol Xl) 50 mg PO DAILY [facility] Last Admin: 05/13/17 10:35 Dose: 50 mg Pantoprazole Sodium (Protonix Ec Tab) 20 mg PO DAILY [facility] Last Admin: 05/13/17 10:35 Dose: 20 mg Results - Vital Signs Recent Vital Signs: Last Vital Signs Temp 97.5 F L 05/13/17 15:39 Pulse 76 05/13/17 16:00 Resp 18 05/13/17 15:39 BP 156/83 H 05/13/17 15:39 Pulse Ox 98 05/13/17 15:39 - Labs Result Diagrams: 05/13/17 07:03 05/13/17 07:03 Labs: Laboratory Results - last 24 hr 05/12/17 05/12/17 05/12/17 17:24 17:24 17:24 WBC 8.4 RBC 4.53 Hgb 13.8 Hct 41.5 MCV 91.5 MCH 30.5 MCHC 33.3 RDW 13.2 Plt Count 437 H D MPV 7.1 L Neut % (Auto) 63.5 Lymph % (Auto) 29.0 [place] % (Auto) 6.3 Eos % (Auto) 0.5 Baso % (Auto) 0.7 Neut # 5.3 Lymph # 2.4 [place] # 0.5 Eos # 0.0 Baso # 0.1 Sodium 136 Potassium 5.4 H Chloride 100 Carbon Dioxide 21 L Anion Gap 20 BUN 33 H Creatinine 2.0 H Est GFR ( Amer) 38 Est GFR (Non-Af Amer) 32 Random Glucose 90 Calcium 10.2 Total Bilirubin 0.6 AST 63 H D ALT 54 Alkaline Phosphatase 113 Total Creatine Kinase CK-MB (Mass) Troponin I < 0.0120 Troponin I, Quant Total Protein 8.6 H Albumin 4.5 Globulin 4.1 H Albumin/Globulin Ratio 1.1 Free T4 Total T3 1.21 L TSH 3rd Generation 0.25 L Urine Color Straw Urine Clarity Clear Urine pH 7.0 Ur Specific [place] 1.010 Urine Protein Negative Urine Glucose (UA) Normal Urine Ketones Negative Urine Blood Negative Urine Nitrate Negative Urine Bilirubin Negative Urine Urobilinogen Normal Ur Leukocyte Esterase Neg Urine WBC (Auto) < 1 05/12/17 05/13/17 05/13/17 17:24 01:43 07:03 WBC 6.7 RBC 4.37 L Hgb 13.5 Hct 40.5 MCV 92.8 MCH 30.9 MCHC 33.3 RDW 13.1 Plt Count 374 MPV 7.6 Neut % (Auto) 59.1 Lymph % (Auto) 29.8 [place] % (Auto) 8.4 Eos % (Auto) 1.6 Baso % (Auto) 1.1 Neut # 4.0 Lymph # 2.0 [place] # 0.6 Eos # 0.1 Baso # 0.1 Sodium Potassium Chloride Carbon Dioxide Anion Gap BUN Creatinine Est GFR ( Amer) Est GFR (Non-Af Amer) Random Glucose Calcium Total Bilirubin AST ALT Alkaline Phosphatase Total Creatine Kinase 35 L CK-MB (Mass) 0.78 Troponin I Troponin I, Quant < 0.0120 Total Protein Albumin Globulin Albumin/Globulin Ratio Free T4 2.00 Total T3 TSH 3rd Generation Urine Color Urine Clarity Urine pH Ur Specific [place] Urine Protein Urine Glucose (UA) Urine Ketones Urine Blood Urine Nitrate Urine Bilirubin Urine Urobilinogen Ur Leukocyte Esterase Urine WBC (Auto) 05/13/17 05/13/17 07:03 10:42 WBC RBC Hgb Hct MCV MCH MCHC RDW Plt Count MPV Neut % (Auto) Lymph % (Auto) [place] % (Auto) Eos % (Auto) Baso % (Auto) Neut # Lymph # [place] # Eos # Baso # Sodium 138 Potassium 4.6 Chloride 100 Carbon Dioxide 23 Anion Gap 19 BUN 26 H Creatinine 1.6 H Est GFR ( Amer) 50 Est GFR (Non-Af Amer) 41 Random Glucose 79 Calcium 9.2 Total Bilirubin 0.5 AST 50 ALT 60 Alkaline Phosphatase 84 Total Creatine Kinase 33 L CK-MB (Mass) 1.02 Troponin I Troponin I, Quant 0.0130 Total Protein 7.7 Albumin 3.7 Globulin 4.0 H Albumin/Globulin Ratio 0.9 L Free T4 Total T3 TSH 3rd Generation Urine Color Urine Clarity Urine pH Ur Specific [place] Urine Protein Urine Glucose (UA) Urine Ketones Urine Blood Urine Nitrate Urine Bilirubin Urine Urobilinogen Ur Leukocyte Esterase Urine WBC (Auto)
--- NOTE | 2017-05-13 18:59 | CP.PCM.PN ---
Subjective - Date & Time of Evaluation Date of Evaluation: 05/13/17 Time of Evaluation: 11:20 - Subjective Subjective: clinically same Objective - Vital Signs/Intake and Output Vital Signs (last 24 hours): Temp Pulse Resp BP Pulse Ox 97.5 F L 76 18 156/83 H 98 05/13/17 15:39 05/13/17 16:00 05/13/17 15:39 05/13/17 15:39 05/13/17 15:39 Intake and Output: 05/13/17 05/13/17 06:59 18:59 Intake Total 795 1000 Balance 795 1000 - Medications Medications: Current Medications Amlodipine Besylate (Norvasc) 5 mg PO DAILY [facility] Last Admin: 05/13/17 10:35 Dose: 5 mg Enoxaparin Sodium (Lovenox) 40 mg SC DAILY [facility] Last Admin: 05/13/17 10:34 Dose: 40 mg Sodium Chloride (Sodium Chloride 0.9%) 1,000 mls @ 100 mls/hr IV .Q10H [facility] Last Admin: 05/13/17 07:06 Dose: 100 mls/hr Levothyroxine Sodium (Synthroid) 125 mcg PO DAILY@0630 [facility] Last Admin: 05/13/17 06:50 Dose: 125 mcg Losartan Potassium (Cozaar) 50 mg PO DAILY [facility] Last Admin: 05/13/17 10:35 Dose: 50 mg Memantine (Namenda) 10 mg PO BID [facility] Last Admin: 05/13/17 18:25 Dose: 10 mg Metoprolol Succinate (Toprol Xl) 50 mg PO DAILY [facility] Last Admin: 05/13/17 10:35 Dose: 50 mg Pantoprazole Sodium (Protonix Ec Tab) 20 mg PO DAILY [facility] Last Admin: 05/13/17 10:35 Dose: 20 mg - Labs Labs: 05/13/17 07:03 05/13/17 07:03
[2017-05-14] MEDS: Sodium Chloride 0.9% 1,000 ML IV SCH ×3 (01:15→20:15)
--- NOTE | 2017-05-14 02:01 | CON ---
DATE: REASON FOR CONSULTATION: Syncopal attack. CHIEF COMPLAINT: The patient was brought into [facility] from the snf with a history of syncopal attack while he was trying to get up from the wheelchair. From neurological point of view, I was called in to evaluate him for further management. HISTORY OF PRESENT ILLNESS: Mr. Wan Delaney is an 87-year-old right-handed [place] male who is known to me as an outpatient for his memory problem, being diagnosed senile dementia of Alzheimer type and been on medications with slow titration. Recently, he was placed in snf. From the history, the patient seems to be syncopal attack while he was trying to get up from the chair, may be a related to hypoperfusion. PAST MEDICAL HISTORY: Hypertension, hypothyroidism, and senile dementia of Alzheimer type. PERSONAL HISTORY: Denies smoking or alcohol use. MEDICATIONS: Cozaar, Lovenox, Norvasc, Protonix, Synthroid, and Toprol. REVIEW OF SYSTEMS: A 16-point systems have been reviewed from neuro, syncopal attack. PHYSICAL EXAMINATION: VITAL SIGNS: Blood pressure 156/83, mean arterial pressure of 107, respiratory rate 16, and temperature afebrile. NECK: Supple. No carotid bruits. CARDIAC: Heart sounds regular. NEUROLOGIC: Mental status examination: The patient had good visual cue. He could not able to recognize me. He could not recognize his kids name. However, when tells his 's name, he seems to be recognize who she is. However, repeated asking finally he said that his 's name. He follows 1 step command significantly right and left confusion and he is apprehensive. Cranial nerve examination: Respond to visual therapy. Extraocular movement decreased in all directions. No facial sensory deficit. Mild facial asymmetry noted in right side. Good gag. Motor examination: On outstretched hand with eyes closed, no drift noted. Power is symmetric on either side. He could able to lift both lower extremities against the gravity. Deep tendon reflexes are absent. Plantars are upgoing on both sides. Sensory examination respond to pain symmetrically on both sides. Gait is deferred at this time. DIAGNOSTIC DATA: CT of the head reviewed shows hydrocephalus ex-vacuo with significant atrophy, small vessel disease also noted, and no acute pathology is seen. EKG, normal sinus rhythm. LABORATORY DATA: Blood workup: WBC is 6.7, hemoglobin 13.5, hematocrit 40.5, and platelets 374. Sodium 138, potassium 4.6, chloride 100, bicarbonate 23, BUN 26, creatinine 1.6, and GFR is 50. TSH 0.25. Urine, no sign of infection. CONCLUSION: 1. Mr. Wan Delaney has been presenting with possible hypoperfusion syndrome secondary to vasovagal phenomenon. 2. He has been suffering from senile dementia of Alzheimer type, the medication should be resumed. 3. The patient should be get out of the bed and physical therapy should be instituted. Bill Benjamin MD
[2017-05-14] MEDS: Levothyroxine 125 MCG TAB PO SCH (06:02)
[2017-05-14] MEDS: Enoxaparin 40 mg Syringe SC SCH (09:41)
[2017-05-14] MEDS: Pantoprazole 20 mg EC Tab PO SCH (09:42)
[2017-05-14] MEDS: Metoprolol Succinate 50 mg XL Tab PO SCH (09:42)
--- NOTE | 2017-05-14 19:38 | CP.PCM.PN ---
Subjective - Date & Time of Evaluation Date of Evaluation: 05/14/17 Time of Evaluation: 10:20 - Subjective Subjective: clinically same Objective - Vital Signs/Intake and Output Vital Signs (last 24 hours): Temp Pulse Resp BP Pulse Ox 97.8 F 77 20 148/69 96 05/14/17 15:31 05/14/17 15:31 05/14/17 15:31 05/14/17 15:31 05/14/17 15:31 Intake and Output: 05/14/17 05/15/17 18:59 06:59 Intake Total 1060 Balance 1060 - Medications Medications: Current Medications Amlodipine Besylate (Norvasc) 5 mg PO DAILY [facility] Last Admin: 05/14/17 09:42 Dose: 5 mg Enoxaparin Sodium (Lovenox) 40 mg SC DAILY [facility] Last Admin: 05/14/17 09:41 Dose: 40 mg Sodium Chloride (Sodium Chloride 0.9%) 1,000 mls @ 100 mls/hr IV .Q10H [facility] Last Admin: 05/14/17 10:15 Dose: Not Given Levothyroxine Sodium (Synthroid) 125 mcg PO DAILY@0630 [facility] Last Admin: 05/14/17 06:02 Dose: 125 mcg Losartan Potassium (Cozaar) 50 mg PO DAILY [facility] Last Admin: 05/14/17 09:42 Dose: 50 mg Memantine (Namenda) 10 mg PO BID [facility] Last Admin: 05/14/17 17:25 Dose: 10 mg Metoprolol Succinate (Toprol Xl) 50 mg PO DAILY [facility] Last Admin: 05/14/17 09:42 Dose: 50 mg Pantoprazole Sodium (Protonix Ec Tab) 20 mg PO DAILY [facility] Last Admin: 05/14/17 09:42 Dose: 20 mg - Labs Labs: 05/13/17 07:03 05/13/17 07:03 - Constitutional Appears: Well - Head Exam Head Exam: ATRAUMATIC, NORMAL INSPECTION, NORMOCEPHALIC - Eye Exam Eye Exam: EOMI, Normal appearance, PERRL Pupil Exam: NORMAL ACCOMODATION, PERRL - ENT Exam ENT Exam: Mucous Membranes Moist, Normal Exam - Neck Exam Neck Exam: Full ROM, Normal Inspection. absent: Lymphadenopathy - Respiratory Exam Respiratory Exam: Decreased Breath Sounds - Cardiovascular Exam Cardiovascular Exam: REGULAR RHYTHM, +S1, +S2 - GI/Abdominal Exam GI & Abdominal Exam: Soft, Diminished Bowel Sounds - Rectal Exam Rectal Exam: Deferred
[2017-05-15] MEDS: Levothyroxine 125 MCG TAB PO SCH (06:30)
[2017-05-15] MEDS: Sodium Chloride 0.9% 1,000 ML IV SCH ×2 (06:31→10:49)
--- NOTE | 2017-05-15 09:09 | PN ---
DATE OF EVALUATION: 05/15/2017 NEUROLOGICAL PROBLEM: Syncopal attack with progressive senile dementia of Alzheimer's type. PHYSICAL EXAMINATION: VITAL SIGNS: Blood pressure 129/67, mean arterial pressure of 87, respiratory rate 18, temperature 98.9 with a pulse rate of 69. NEUROLOGIC: The patient is sleepy, arousable on tactile stimuli only. His examination is unchanged consistent with severe dementia. His workup recommended including electroencephalogram and blood workup which should be followed today. Bill Benjamin MD
[2017-05-15] MEDS: Metoprolol Succinate 50 mg XL Tab PO SCH (10:42)
[2017-05-15] MEDS: Pantoprazole 20 mg EC Tab PO SCH (10:42)
[2017-05-15] MEDS: Enoxaparin 40 mg Syringe SC SCH (10:42)
--- NOTE | 2017-05-15 12:45 | CARD ---
APPROVED REPORT EKG Measurement Heart [id number] <Conclusion> Normal sinus rhythm with sinus arrhythmia Nonspecific ST abnormality Abnormal ECG
[2017-05-15] MEDS: Enoxaparin 30 mg Syringe SC SCH (13:44)
--- NOTE | 2017-05-15 15:21 | CP.PCM.PN ---
Subjective - Date & Time of Evaluation Date of Evaluation: 05/15/17 Time of Evaluation: 15:19 - Subjective Subjective: PT SEEN AND EXAMINED TODAY, RESP EASY AND UNLABORED. NAD Objective - Vital Signs/Intake and Output Vital Signs (last 24 hours): Temp Pulse Resp BP Pulse Ox 97.4 F L 70 18 155/79 H 99 05/15/17 07:25 05/15/17 07:25 05/15/17 07:25 05/15/17 07:25 05/15/17 07:25 Intake and Output: 05/15/17 05/15/17 06:59 18:59 Intake Total 2200 Balance 2200 - Medications Medications: Current Medications Amlodipine Besylate (Norvasc) 5 mg PO DAILY [facility] Last Admin: 05/15/17 10:42 Dose: 5 mg Enoxaparin Sodium (Lovenox) 30 mg SC DAILY [facility] Last Admin: 05/15/17 13:44 Dose: Not Given Sodium Chloride (Sodium Chloride 0.9%) 1,000 mls @ 100 mls/hr IV .Q10H [facility] Last Admin: 05/15/17 10:49 Dose: 100 mls/hr Levothyroxine Sodium (Synthroid) 125 mcg PO DAILY@0630 [facility] Last Admin: 05/15/17 06:30 Dose: 125 mcg Losartan Potassium (Cozaar) 50 mg PO DAILY [facility] Last Admin: 05/15/17 10:42 Dose: 50 mg Memantine (Namenda) 5 mg PO BID [facility] Metoprolol Succinate (Toprol Xl) 50 mg PO DAILY [facility] Last Admin: 05/15/17 10:42 Dose: 50 mg Pantoprazole Sodium (Protonix Ec Tab) 20 mg PO DAILY [facility] Last Admin: 05/15/17 10:42 Dose: 20 mg - Labs Labs: 05/13/17 07:03 05/13/17 07:03 Assessment and Plan - Assessment and Plan (Free Text) Plan: 87 Y/O MALE WITH PMHX ALZHEIMER'S, PARKINSON'S DISEASE, BPH, DEMENTIA, HTN, HYPOTHYROIDISIM ADMITTED FOR NEAR SYNCOPE, DEHYDRATION, HYPERKALEMIA NEURO CONSULT- DR MCQUEEN CT HEAD - NO ACUTE FINDINGS REPEAT LAB IN AM EEG READING PENDING, WILL BE REEVALUATED BY DR MCQUEEN IN AM BEFORE D/C TOMORROW ]
--- NOTE | 2017-05-15 22:04 | CP.PCM.PN ---
Subjective - Date & Time of Evaluation Date of Evaluation: 05/15/17 Objective - Vital Signs/Intake and Output Vital Signs (last 24 hours): Temp Pulse Resp BP Pulse Ox 97.6 F 71 18 133/67 98 05/15/17 15:29 05/15/17 15:29 05/15/17 15:29 05/15/17 15:29 05/15/17 15:29 - Medications Medications: Current Medications Amlodipine Besylate (Norvasc) 5 mg PO DAILY [facility] Last Admin: 05/15/17 10:42 Dose: 5 mg Enoxaparin Sodium (Lovenox) 30 mg SC DAILY [facility] Last Admin: 05/15/17 13:44 Dose: Not Given Levothyroxine Sodium (Synthroid) 125 mcg PO DAILY@0630 [facility] Last Admin: 05/15/17 06:30 Dose: 125 mcg Losartan Potassium (Cozaar) 50 mg PO DAILY [facility] Last Admin: 05/15/17 10:42 Dose: 50 mg Memantine (Namenda) 5 mg PO BID [facility] Last Admin: 05/15/17 17:31 Dose: 5 mg Metoprolol Succinate (Toprol Xl) 50 mg PO DAILY [facility] Last Admin: 05/15/17 10:42 Dose: 50 mg Pantoprazole Sodium (Protonix Ec Tab) 20 mg PO DAILY [facility] Last Admin: 05/15/17 10:42 Dose: 20 mg - Labs Labs: 05/13/17 07:03 05/13/17 07:03
[2017-05-16] MEDS: Levothyroxine 125 MCG TAB PO SCH (06:08)
[2017-05-16 08:09] LABS: BASO # 0.1 K/uL (0.0-0.2); BASO % 1.3 % (0.0-2.0); EOS # 0.1 K/uL (0.0-0.7); EOS % 1.8 % (0.0-4.0); HEMATOCRIT 41.5 % (35.0-51.0); LYMPH # 1.3 K/uL (1.0-4.3); LYMPH % 26.7 % (20.0-40.0); MEAN CELL VOLUME 91.3 fL (80.0-94.0); MEAN CORPUSCULAR HEMOGLOBIN 30.6 pg (27.0-31.0); MEAN CORPUSCULAR HGB CONC 33.5 g/dL (33.0-37.0); MEAN PLATELET VOLUME 7.9 fL (7.2-11.7); MONO # 0.5 K/uL (0.0-0.8); MONO % 10.4 % (0.0-10.0); NRBC % 0.1 % (0.0-2.0); RED CELL DISTRIBUTION WIDTH 13.1 % (11.5-14.5); WHITE BLOOD COUNT 4.8 K/uL (4.8-10.8)
[2017-05-16 08:22] LABS: CHLORIDE 95 mmol/L (98-107); SODIUM 137 mmol/L (132-148)
[2017-05-16 08:23] LABS: POTASSIUM 3.7 mmol/L (3.6-5.2)
[2017-05-16 08:26] LABS: ALB/GLOB RATIO 1.1 (1.0-2.1); ALKALINE PHOSPHATASE 92 U/L (38-126); ALT/SGPT 41 U/L (21-72); AST/SGOT 46 U/L (17-59); BILIRUBIN,TOTAL 0.6 mg/dL (0.2-1.3); BLOOD UREA NITROGEN 17 mg/dL (9-20); CALCIUM 9.2 mg/dl (8.6-10.4); CARBON DIOXIDE 24 mmol/L (22-30); GFR AFRICAN-AMERICAN > 60; GLUCOSE,RANDOM 77 mg/dL (75-110); TOTAL PROTEIN 7.6 g/dL (6.3-8.3)
[2017-05-16] MEDS: Metoprolol Succinate 50 mg XL Tab PO SCH (09:07)
[2017-05-16] MEDS: Pantoprazole 20 mg EC Tab PO SCH (09:07)
[2017-05-16] MEDS: Enoxaparin 30 mg Syringe SC SCH (09:08)
--- NOTE | 2017-05-16 12:01 | CP.PCM.PN ---
Subjective - Date & Time of Evaluation Date of Evaluation: 05/16/17 Time of Evaluation: 11:55 - Subjective Subjective: PGY-[address] Washington's Service: Pt seen and examined at bedside. Nursing reports no acute events overnight. Pt found resting comfortably in bed. He is oriented to person only. He denies acute complaints. Patient is for transfer today to [facility] [place]. Objective - Vital Signs/Intake and Output Vital Signs (last 24 hours): Temp Pulse Resp BP Pulse Ox 97.9 F 63 18 150/72 95 05/16/17 07:20 05/16/17 07:20 05/16/17 07:20 05/16/17 07:20 05/16/17 07:20 Intake and Output: 05/16/17 05/16/17 06:59 18:59 Intake Total 1300 Balance 1300 - Medications Medications: Current Medications Amlodipine Besylate (Norvasc) 5 mg PO DAILY [facility] Last Admin: 05/16/17 09:07 Dose: 5 mg Enoxaparin Sodium (Lovenox) 30 mg SC DAILY [facility] Last Admin: 05/16/17 09:08 Dose: 30 mg Levothyroxine Sodium (Synthroid) 125 mcg PO DAILY@0630 [facility] Last Admin: 05/16/17 06:08 Dose: 125 mcg Losartan Potassium (Cozaar) 50 mg PO DAILY [facility] Last Admin: 05/16/17 09:07 Dose: 50 mg Memantine (Namenda) 5 mg PO BID [facility] Last Admin: 05/16/17 10:03 Dose: 5 mg Metoprolol Succinate (Toprol Xl) 50 mg PO DAILY [facility] Last Admin: 05/16/17 09:07 Dose: 50 mg Pantoprazole Sodium (Protonix Ec Tab) 20 mg PO DAILY [facility] Last Admin: 05/16/17 09:07 Dose: 20 mg - Labs Labs: 05/16/17 07:57 05/16/17 07:57 - Constitutional Appears: Non-toxic, No Acute Distress - Head Exam Head Exam: ATRAUMATIC, NORMOCEPHALIC - Eye Exam Eye Exam: EOMI, Normal appearance. absent: Scleral icterus - ENT Exam ENT Exam: Mucous Membranes Dry - Respiratory Exam Respiratory Exam: Clear to Ausculation Bilateral, NORMAL BREATHING PATTERN. absent: Rales, Rhonchi, Wheezes - Cardiovascular Exam Cardiovascular Exam: REGULAR RHYTHM, +S1, +S2 - GI/Abdominal Exam GI & Abdominal Exam: Soft, Normal Bowel Sounds. absent: Tenderness - Extremities Exam Extremities Exam: Normal Inspection - Neurological Exam Neurological Exam: Alert, Awake. absent: Oriented x3 - Psychiatric Exam Psychiatric exam: Normal Affect, Normal Mood - Skin Skin Exam: Dry, Normal Color, Warm Assessment and Plan - Assessment and Plan (Free Text) Plan: Syncope Pt fell in senior care after feeling dizzy CT Head (05/12/17): No acute intracranial hemorrhage. Significant diffuse/ confluent chronic white matter ischemic changes. There are also scattered chronic bilateral basal nuclei lacunar type infarcts. Questionable chronic brainstem lacunar type infarcts. Significant atrophy. EKG on admission: NSR, [address]/T wave changes CXR on admission: NAD Dr Benjamin, Neuro consult: help appreciated - possible hypoperfusion syndrome 2/2 vasovagal phenomenon - keep MAP around 100 - f/u EEG Alzheimer's Dementia Namenda 5mg PO BID HTN Norvasc 5mg PO BID Toprol XL 50mg PO Daily Cozaar 50mg PO Daily Hypothyroidism Synthroid 125mcg PO Daily Prophylaxis PT/OT Protonix 20mg PO Daily Lovenox 30mg SC daily SCDs Disposition: Pt for discharge to [facility] [place] rehab Tim Capellan PGY-2 All medical management per Dr Washington
--- NOTE | 2017-05-16 19:05 | CP.PCM.PN ---
Subjective - Date & Time of Evaluation Date of Evaluation: 05/16/17 Time of Evaluation: 08:00 - Subjective Subjective: clinically same Objective - Vital Signs/Intake and Output Vital Signs (last 24 hours): Temp Pulse Resp BP Pulse Ox 98.1 F 68 20 120/67 100 05/16/17 15:19 05/16/17 15:19 05/16/17 15:19 05/16/17 15:19 05/16/17 15:19 - Medications Medications: Current Medications Amlodipine Besylate (Norvasc) 5 mg PO DAILY [facility] Last Admin: 05/16/17 09:07 Dose: 5 mg Enoxaparin Sodium (Lovenox) 30 mg SC DAILY [facility] Last Admin: 05/16/17 09:08 Dose: 30 mg Levothyroxine Sodium (Synthroid) 125 mcg PO DAILY@0630 [facility] Last Admin: 05/16/17 06:08 Dose: 125 mcg Losartan Potassium (Cozaar) 50 mg PO DAILY [facility] Last Admin: 05/16/17 09:07 Dose: 50 mg Memantine (Namenda) 5 mg PO BID [facility] Last Admin: 05/16/17 18:59 Dose: 5 mg Metoprolol Succinate (Toprol Xl) 50 mg PO DAILY [facility] Last Admin: 05/16/17 09:07 Dose: 50 mg Pantoprazole Sodium (Protonix Ec Tab) 20 mg PO DAILY [facility] Last Admin: 05/16/17 09:07 Dose: 20 mg - Labs Labs: 05/16/17 07:57 05/16/17 07:57 - Constitutional Appears: Well - Head Exam Head Exam: ATRAUMATIC, NORMAL INSPECTION, NORMOCEPHALIC - Eye Exam Eye Exam: EOMI, Normal appearance, PERRL Pupil Exam: NORMAL ACCOMODATION, PERRL - ENT Exam ENT Exam: Mucous Membranes Moist, Normal Exam - Neck Exam Neck Exam: Full ROM, Normal Inspection. absent: Lymphadenopathy - Respiratory Exam Respiratory Exam: Decreased Breath Sounds - Cardiovascular Exam Cardiovascular Exam: REGULAR RHYTHM, +S1, +S2 - GI/Abdominal Exam GI & Abdominal Exam: Soft, Diminished Bowel Sounds - Rectal Exam Rectal Exam: Deferred
[2017-05-17 00:18] VITALS: O2SAT 98
[2017-05-17] MEDS: Levothyroxine 125 MCG TAB PO SCH (05:51)
--- NOTE | 2017-05-17 07:28 | PN ---
DATE OF EVALUATION: 05/17/2017 NEUROLOGICAL PROBLEM: Senile dementia of Alzheimer's type superimposed with new onset of syncopal attack from neuro, probably non-convulsive seizure. PHYSICAL EXAMINATION: VITAL SIGNS: Blood pressure 134/74, mean arterial pressure of 94, respiratory rate 18, temperature 97.3 with a pulse rate of 73. NEUROLOGIC: The patient is sound sleeping, not arousable on calling his first name,. On tactile stimuli, the patient is arousable. Mental status is again confused. He moved out with four extremities. No sign of hallucination or suicidal ideation. He falls back to sleep. Speech is one word answers when he is awake. His workup is completed from the neurological point of view except electroencephalogram that will be reviewed by today. When medically stable, the patient can be discharged to the rehabilitation place where he came from. Bill Benjamin MD
[2017-05-17 08:22] VITALS: BP 156/73; PULSE 68; RESP 18; TEMP 97.5
[2017-05-17] MEDS: Metoprolol Succinate 50 mg XL Tab PO SCH (09:58)
[2017-05-17] MEDS: Pantoprazole 20 mg EC Tab PO SCH (09:58)
[2017-05-17] MEDS: Enoxaparin 30 mg Syringe SC SCH (09:59)
--- NOTE | 2017-05-17 13:14 | CP.PCM.CON ---
History of Present Illness - History of Present Illness History of Present Illness: palliative consult Requested by Vance RODRIGUEZ reason: Code status Patient is a 87 yo male admitted from [place] , S/P fall. No LOC was noted. The CT head upon admission showed no findings of intracranial bleeding. Family requested the Advance care discussion and POLST. PMH: alzheimer's, parkinsons, treated for UTI here at [facility], about 2 weeks ago Fam. Hx: father - Parkinson's, Review of Systems - Review of Systems All systems: reviewed and no additional remarkable complaints except (ROS obtained from nursing. Patient very confused. No acute overnight events.) Past Patient History - Past Medical History & Family History Past Medical History?: Yes - Past Social History Smoking Status: Never Smoked - CARDIAC Hx Hypertension: Yes - NEUROLOGICAL Hx Alzheimer's Disease: Yes Hx Dementia: Yes - ENDOCRINE/METABOLIC Hx Hypothyroidism: Yes - MUSCULOSKELETAL/RHEUMATOLOGICAL Hx Falls: No - GENITOURINARY/GYNECOLOGICAL Hx Prostate Problems: Yes - PSYCHIATRIC Hx Substance Use: No - SURGICAL HISTORY Hx Surgeries: Yes Other/Comment: Prostate surgery - ANESTHESIA Hx Anesthesia: Yes Hx Anesthesia Reactions: No Meds Allergies/Adverse Reactions: Allergies Allergy/AdvReac Type Severity Reaction Status Date / Time No Known Allergies Allergy Verified 05/12/17 16:29 - Medications Medications: Current Medications Amlodipine Besylate (Norvasc) 5 mg PO DAILY [facility] Last Admin: 05/17/17 09:58 Dose: 5 mg Enoxaparin Sodium (Lovenox) 30 mg SC DAILY [facility] Last Admin: 05/17/17 09:59 Dose: 30 mg Levothyroxine Sodium (Synthroid) 125 mcg PO DAILY@0630 [facility] Last Admin: 05/17/17 05:51 Dose: 125 mcg Losartan Potassium (Cozaar) 50 mg PO DAILY [facility] Last Admin: 05/17/17 09:58 Dose: 50 mg Memantine (Namenda) 5 mg PO BID [facility] Last Admin: 05/17/17 10:00 Dose: 5 mg Metoprolol Succinate (Toprol Xl) 50 mg PO DAILY [facility] Last Admin: 05/17/17 09:58 Dose: 50 mg Pantoprazole Sodium (Protonix Ec Tab) 20 mg PO DAILY [facility] Last Admin: 05/17/17 09:58 Dose: 20 mg Physical Exam - Constitutional Appears: Chronically Ill - Head Exam Head Exam: ATRAUMATIC, NORMAL INSPECTION, NORMOCEPHALIC - Eye Exam Eye Exam: EOMI, Normal appearance, PERRL Pupil Exam: NORMAL ACCOMODATION, PERRL - ENT Exam ENT Exam: Mucous Membranes Moist, Normal Exam - Neck Exam Neck exam: Positive for: Normal Inspection - Respiratory Exam Respiratory Exam: Decreased Breath Sounds, NORMAL BREATHING PATTERN - Cardiovascular Exam Cardiovascular Exam: REGULAR RHYTHM - GI/Abdominal Exam GI & Abdominal Exam: Normal Bowel Sounds, Soft - Rectal Exam Rectal Exam: Deferred - Extremities Exam Extremities exam: Positive for: normal inspection - Back Exam Back exam: NORMAL INSPECTION - Neurological Exam Neurological exam: Alert, Altered - Psychiatric Exam Psychiatric exam: Flat Affect - Skin Skin Exam: Dry, Intact, Normal Color, Warm Results - Vital Signs Recent Vital Signs: Last Vital Signs Temp 97.5 F L 05/17/17 07:15 Pulse 68 05/17/17 07:15 Resp 18 05/17/17 07:15 BP 156/73 H 05/17/17 07:15 Pulse Ox 98 05/17/17 07:15 - Labs Result Diagrams: 05/16/17 07:57 05/16/17 07:57 Assessment & Plan - Assessment and Plan (Free Text) Assessment: palliative consult Code status prior to consult was DNR/DNI but with out supporting documents on chart. I reviewed medical records, all diagnostic studies, examined patient and discussed goals of care with his daughter. Patient is alert, very confused, verbal, but the words are not clear. Patient does nor recognize his daughter and needs to be reoriented frequently. VS and blood work are all WNL. Physical exam revealed no acute findings. Goals of care discussed with daughter Dee away from the bed side. Dee was very clear that her and her brother are concerned about patient's comfort level . Dee states that her father has lived long and nice life, and the family would want him to have natural with out using any agressive measures to prolong his life if condition becomes terminal. Dee and her brother do not want CPR, MV assistance or the PEG tube. They would like only ordinary measures to promote his father's comfort. POLST completed. Dee signed DNR/DNI for her father. Further, we discussed the discharge planing. Family wanted patient to go back to the same NH where he came from. [employer] division manager made aware of. Impression * This is an elderly man in no acute distress with advanced dementia * Family very involved in care and concerned with patient's comfort * Family choose DNR/DNI status * Family would like patient to go back to the same NH where he came from * * Suggestion * Agree with DNR/DNI * POLST on chart * Discharge to NH for longterm placement
--- NOTE | 2017-05-18 15:39 | EEG ---
DATE: This is a 16-channel electroencephalogram of awake and confused adult. During the study, photic stimulation was performed. Hyperventilation was not performed. The resting electroencephalogram consist of moderate voltage 3 to 5 Hz delta mixed with theta activities seen. This activity slowly continued with higher amplitude. Sleep spindles and K-complexes were noted consistent with N2 sleep. The photic stimulation did not evoke driving response noted after 2 to 25 Hz. IMPRESSION: This is abnormal electroencephalogram because of persistent slowing throughout the record suggestive of bilateral cerebral dysfunction. This is probably secondary to metabolic, vascular or degenerative process. Please correlate the findings with neurological and radiological studies. Bill Benjamin MD
--- NOTE | 2017-05-22 15:50 | PQF CVATIA ---
This form is a permanent part of the medical record Clarification of your documentation is requested to better reflect the severity of illness and intensity of treatment of your patient. PLEASE, CLARIFY ETIOLOGY OF SYNCOPE. PLEASE, CLARIFY IS THE CVA IS ACUTE V/S OLD Indicators present: [X] Altered mental status SYNCOPE [] Aphasia [] Dysphagia [] Dysphasia [] Facial droop/numbness [] Gait disturbance [] Hemiparesis/plegia [] Speech impairment [X] Weakness [] Neuro Consult [] CT/MRI Findings [X] Other: [ CAT SCAN OF THE BRAIN SHOWS SIGNIFICANT DIFFUSE CHRONIC WHITE MATER ISCHEMIC CHANGES] Hx ALZHEIMER'S , DEMENTIA, HTN, HYPOTHYROIDISM , DNR PRINCIPAL DX IS CVA as D/C SUMMARY Location in the medical record that reflects the above clinical findings: [CAT SCAN - BRAIN, D/C SUMMARY] Treatment Provided: [] PHYSICIAN'S RESPONSE Based on your medical judgment of the clinical indicators outlined above, are you treating this patient for a known or suspected: [] Acute Cerebrovascular Accident (CVA) Please specify type i.e.; embolic, hemorrhagic, ischemic. Please specify the artery involved if known. [] Transient Ischemic Accident (TIA) [] Prolonged reversible ischemic neurological disorder [] Other, please indicate: [] [] If unable to determine, please check the box, sign and date. Present On Admission (POA) Indicator: [] Present at the time of admission [] Not present at the time of admission [] Clinically Undetermined In responding to this query, please exercise your independent professional judgment. The fact that a question is asked does not imply that any particular answer is desired or expected. Thank you for your clarification on this documentation. If you have any questions please call:[[phone] ] * Thank you, [ Ly Taylor , CCS, [employer]MENT OPERATOR] professional system administrator ANAMIKA
== END 2017-05-17 14:30 | DRG 69 ==
LOC: C.ER 16:25 → C.6T 18:32 → OBSVTOIN 05-13 15:42 → C.6T 05-15 19:56
PROVIDERS: ADMIT Internal Medicine Nephrology; ATTEND Internal Medicine Nephrology
DX: G45.9 Transient cerebral ischemic attack, unspecified (principal); N17.9 Acute kidney failure, unspecified; G20 Parkinson's disease; G40.89 Other seizures; E86.0 Dehydration; R55 Syncope and collapse; W18.30XA Fall on same level, unspecified, initial encounter; I10 Essential (primary) hypertension; G30.1 Alzheimer's disease with late onset; F02.80 Dementia in other diseases classified elsewhere, unspecified severity, without behavioral disturbance, psychotic disturbance, mood disturbance, and anxiety; N40.0 Benign prostatic hyperplasia without lower urinary tract symptoms; E03.9 Hypothyroidism, unspecified; Z66 Do not resuscitate; Z86.73 Personal history of transient ischemic attack (TIA), and cerebral infarction without residual deficits

== ENCOUNTER 2018-05-04 13:58 | Inpatient (IN) | payer MEDICAID, MEDICARE ==
[2018-05-04 15:38] LABS: VENOUS BLOOD GAS BASE EXCESS 1.4 mmol/L (0.0-2.0); VENOUS BLOOD GAS PCO2 35 mmHg (40-60); VENOUS BLOOD GAS PO2 43 mm/Hg (30-55); VENOUS BLOOD PH 7.46 (7.32-7.43)
[2018-05-04 15:42] LABS: BASO % 0.6 % (0.0-2.0); EOS # 0.1 K/uL (0.0-0.7); EOS % 1.2 % (0.0-4.0); HEMOGLOBIN 12.9 g/dL (12.0-18.0); LYMPH # 1.4 K/uL (1.0-4.3); LYMPH % 18.2 % (20.0-40.0); MEAN CELL VOLUME 90.8 fL (80.0-94.0); MEAN CORPUSCULAR HEMOGLOBIN 30.8 pg (27.0-31.0); MEAN CORPUSCULAR HGB CONC 33.9 g/dL (33.0-37.0); MONO # 1.4 K/uL (0.0-0.8); MONO % 18.3 % (0.0-10.0); NEUT # 4.7 K/uL (1.8-7.0); NEUT % 61.7 % (50.0-75.0); RBC 4.2 Mil/uL (4.40-5.90); RED CELL DISTRIBUTION WIDTH 14.5 % (11.5-14.5); WHITE BLOOD COUNT 7.6 K/uL (4.8-10.8)
[2018-05-04 16:02] LABS: ALB/GLOB RATIO 1.2 (1.0-2.1); ALT/SGPT 20 U/L (21-72); AST/SGOT 32 U/L (17-59); BLOOD UREA NITROGEN 24 mg/dL (9-20); CALCIUM 9.2 mg/dl (8.6-10.4); GFR NON-AFRICAN AMERICAN > 60
--- NOTE | 2018-05-04 16:03 | RAD ---
Date of service: 05/04/2018 HISTORY: Sepsis Patient COMPARISON: 05/12/2017. FINDINGS: LUNGS: The lungs are well inflated and clear. There are fibrotic changes in the lower lobes. PLEURA: No significant pleural effusion identified, no pneumothorax apparent. CARDIOVASCULAR: Normal. OSSEOUS STRUCTURES: No significant abnormalities. VISUALIZED UPPER ABDOMEN: Normal. OTHER FINDINGS: None. IMPRESSION: No active pulmonary disease.
--- NOTE | 2018-05-04 16:34 | C.PDOC ---
History Of Present Illness 88 year old male, whose PMHx includes Alzheimer's and Dementia, is brought to the ED via BLS after being sent from nursing for evaluation of altered mental status noted today. Case discussed with Dr. Beckman from [facility] ). As per Dr. Beckman, patient finished eating lunch in [employer] and slumped forward into his chair. Patient then slumped over once again after he was seated upright and became difficult to arouse. Dr. Beckman denies falls and is requesting a head CT. Additional information is limited secondary to patient's history of Alzheimer's and Dementia. Time Seen by Provider: 05/04/18 14:36 Chief Complaint (Nursing): Altered Mental Status History Per: Patient History/Exam Limitations: Other (Alzheimer's and Dementia ) Onset Of Symptoms: Cannot Confirm Onset Current Symptoms Are (Timing): Still Present Exacerbating Factor(s): Unknown Additional History Per: Alf Past Medical History Reviewed: Historical Data, Nursing Documentation, Vital Signs Vital Signs: Last Vital Signs Temp 100.7 F H 05/04/18 16:24 Pulse 94 H 05/04/18 16:24 Resp 20 05/04/18 16:24 BP 139/61 05/04/18 16:24 Pulse Ox 97 05/04/18 16:24 - Medical History PMH: Alzheimer's Disease, Benign Prostatic Hyperplasia, Dementia, HTN, Hypothyroidism Surgical History: No Surg Hx Family History: States: Unknown Family Hx - Social History Hx Alcohol Use: No Hx Substance Use: No - Immunization History Hx Tetanus Toxoid Vaccination: No Hx Influenza Vaccination: Yes (2016) Hx Pneumococcal Vaccination: Yes Review Of Systems Review Of Systems: ROS cannot be obtained secondary to pt's inabilty to answer questions. Physical Exam - Physical Exam Appears: Non-toxic, No Acute Distress, Other (holding onto sheets ) Skin: Normal Color, Warm, Dry, No Other (decubitus ) Head: Atraumatic, Normacephalic, No Other (signs of traum/injury to scalp ) Eye(s): bilateral: Normal Inspection Oral Mucosa: Moist Neck: Supple Chest: Symmetrical, No Deformity, No Tenderness Cardiovascular: Rhythm Regular, No Murmur Respiratory: Normal Breath Sounds, No Rales, No Rhonchi, No Wheezing Gastrointestinal/Abdominal: Soft, No Tenderness, No Guarding, No Rebound Extremity: Normal ROM (moving all extremities x4), Capillary Refill (less than 2 seconds ) Neurological/Psych: Other (awake, verbalizing "yes" occasionally, pulls away from noxious stimuli) Gait: Unable To Assess ED Course And Treatment - Laboratory Results Result Diagrams: 05/04/18 15:35 05/04/18 15:35 ECG: Interpreted By Me, Viewed By Me ECG Rhythm: Sinus Rhythm Interpretation Of ECG: Normal Sinus at rate 94bpm with low voltage QRS. No ST elevations or depressions. Rate From EC O2 Sat by Pulse Oximetry: 97 (on RA) Pulse Ox Interpretation: Normal Medical Decision Making Medical Decision Making: Impression: 88 year old male with altered mental status Plan: * bloodwork * urinalysis * CT Head * EKG * CXR * Tylenol PO * Rocephin IV * IV Fluids * reassess and disposition Progress: Bloodwork, urinalysis, CT Head, EKG, CXR ordered and reviewed. Tylenol PO, Rocephin IV, and IV Fluids given. Discussed case with Dr. Abad, agrees with plan to admit. Patient has low grade temp, normal lactate, normal WBC, no UTI nor pneumonia. BP dropping 90/60, will start fluids and antibiotics, unclear source Disposition Discussed With : Ángel Starr Doctor Will See Patient In The: Hospital Counseled Patient/Family Regarding: Studies Performed, Diagnosis - Disposition Disposition: HOSPITALIZED Disposition Time: 17:35 Condition: GUARDED Forms: [facility] (Thai) - Clinical Impression Clinical Impression: Altered mental status, Fever - Scribe Statement The provider has reviewed the documentation as recorded by the Scribe (Colleen Washington) Provider Attestation: All medical record entries made by the Scribe were at my direction and personally dictated by me. I have reviewed the chart and agree that the record accurately reflects my personal performance of the history, physical exam, medical decision making, and the department course for this patient. I have also personally directed, reviewed, and agree with the discharge instructions and disposition. Decision To Admit - Pt Status Changed To: Hospital Disposition Of: Inpatient - Admit Certification Admit to Inpatient:: After my assessment, the patient will require hospitalization for at least two midnights. This is because of the severity of symptoms shown, intensity of services needed, and/or the medical risk in this patient being treated as an outpatient. - InPatient: Physician Admission Certification:: fever, ams - . Bed Request Type: Telemetry Admitting Physician: Ángel Starr Patient Diagnosis: Altered mental status, Fever
[2018-05-04 16:55] LABS: SQUAMOUS EPITHIAL < 1 /hpf (0-5); URINE BILIRUBIN NEGATIVE (NEGATIVE); URINE BLOOD 1+ (NEGATIVE); URINE CLARITY Clear (Clear); URINE COLOR Yellow (YELLOW); URINE GLUCOSE (UA) NORMAL (Normal); URINE LEUKOCYTE ESTERASE NEG Leu/uL (Negative); URINE PROTEIN NEGATIVE (NEGATIVE); URINE UROBILINOGEN NORMAL mg/dL (0.2-1.0)
--- NOTE | 2018-05-04 17:10 | CT ---
Date of service: 05/04/2018 PROCEDURE: CT HEAD WITHOUT CONTRAST. HISTORY: ams COMPARISON: Comparison made with prior CT scan brain 05/12/2027 TECHNIQUE: Axial computed tomography images were obtained through the head/brain without intravenous contrast. Radiation dose: Total exam DLP = 977.73 mGy-cm. This CT exam was performed using one or more of the following dose reduction techniques: Automated exposure control, adjustment of the mA and/or kV according to patient size, and/or use of iterative reconstruction technique. FINDINGS: HEMORRHAGE: No acute parenchymal, subarachnoid or extra-axial hemorrhage. BRAIN: Fairly significant diffuse and confluent chronic white matter ischemic changes are again seen extending peripherally into the deep and subcortical white matter both cerebral hemispheres. Additionally, there are a few scattered small chronic lacunar-type infarcts both basal nuclei. Note that the possibility of a small hyperacute infarct cannot be excluded on this study. No extra-axial mass or collection seen on this noncontrast exam. Moderate to significant generalized volume loss. Vascular calcifications both carotid siphons VENTRICLES: No obstructive hydrocephalus. CALVARIUM: Calvarium intact PARANASAL SINUSES: Mild-moderate mucosal thickening noted within the ethmoid air complex with extension superiorly into the frontal sinus. There is also mild mucosal thickening both maxillary antra. MASTOID AIR CELLS: Unremarkable as visualized. No inflammatory changes. OTHER FINDINGS: Changes of bilateral cataract surgery. IMPRESSION: No evidence of acute intracranial hemorrhage. Significant chronic white matter ischemic changes with scattered chronic bilateral basal nuclei lacunar type infarcts. Note that the possibility of a small hyperacute infarct not excluded Moderate to fairly significant generalized volume loss.
[2018-05-04] MEDS ORDERED: cefTRIAXone IV 1 gm in Dextros 50 ML IVPB STA (17:31)
[2018-05-04] MEDS ORDERED: Sodium Chloride 0.9% 500 ML IV ONE (17:33)
[2018-05-04] MEDS ORDERED: cefTRIAXone 1 gm 1 GM/100 ML BAG IVPB ONE (17:47)
[2018-05-04 20:41] LABS: VENOUS BLOOD GAS PCO2 32 mmHg (40-60); VENOUS BLOOD GAS PO2 51 mm/Hg (30-55); VENOUS BLOOD PH 7.45 (7.32-7.43)
[2018-05-04] MEDS: Sodium Chloride 0.9% 1,000 ML IV SCH (21:15)
[2018-05-04] MEDS ORDERED: Sodium Chloride 0.9% 1,000 ML ONE (21:18)
[2018-05-05] MEDS: Levothyroxine 125 MCG TAB PO SCH (06:42)
[2018-05-05 08:10] LABS: BASO % 0.6 % (0.0-2.0); EOS # 0.1 K/uL (0.0-0.7); EOS % 1.8 % (0.0-4.0); HEMOGLOBIN 12.8 g/dL (12.0-18.0); LYMPH # 1.4 K/uL (1.0-4.3); MEAN CORPUSCULAR HEMOGLOBIN 30.6 pg (27.0-31.0); MEAN CORPUSCULAR HGB CONC 32.9 g/dL (33.0-37.0); MEAN PLATELET VOLUME 6.8 fL (7.2-11.7); MONO # 1.5 K/uL (0.0-0.8); NEUT # 3.5 K/uL (1.8-7.0); NEUT % 53.6 % (50.0-75.0); NRBC % 0.3 % (0.0-2.0); PLATELET COUNT 252 K/uL (130-400); RBC 4.17 Mil/uL (4.40-5.90); RED CELL DISTRIBUTION WIDTH 14.5 % (11.5-14.5); WHITE BLOOD COUNT 6.5 K/uL (4.8-10.8)
[2018-05-05 08:29] LABS: ALBUMIN 3.4 g/dL (3.5-5.0); ALT/SGPT 13 U/L (21-72); AST/SGOT 43 U/L (17-59); BLOOD UREA NITROGEN 18 mg/dL (9-20); CALCIUM 8.5 mg/dl (8.6-10.4); GFR NON-AFRICAN AMERICAN > 60
[2018-05-05 08:37] LABS: CK-MB 2.14 ng/mL (0.0-3.38)
[2018-05-05 09:32] LABS: BANDS 1 % (0-2); BASOPHIL 1 % (0-2); EOSINOPHIL 2 % (0-4); LYMPHOCYTE 21 % (20-40); MONOCYTE 17 % (0-10); NEUTROPHIL 58 % (50-75); TOTAL CELLS COUNTED 100
[2018-05-05 09:33] LABS: ANISOCYTOSIS SLIGHT; PLATELET ESTIMATE NORMAL (NORMAL)
--- NOTE | 2018-05-05 09:48 | CP.PCM.HP ---
History of Present Illness - History of Present Illness History of Present Illness: Chief complaint: Altered mental status HPI: 88-year-old male with a history of dementia brought in by the ambulance because of the altered mental status. According to the doctor in the correction patient was eating some lunch, but h e was not able to eat and he was slumped and slumped forward to his chair. He was having repeated episodes like that and difficult time in arousing. But there was no fall or injury was noted. Because of the worsening changes in the mental condition, patient was transferred to emergency room. In the emergency room patient was having mild low-grade fever. He was also having coughing. Patient was fed by the unit reactor operator, but patient was not able to eat certain food but he was able to drink. Upon questioning he answers, but inappropriate. He was having mild tachycardia and also minimal fever Past medical history: Hypertension, Alzheimer dementia. Allergy no known drug allergy. Surgical history none Family history unknown. Review of system: Patient is somewhat lethargic. But answering questions. Able to eat. He denies any chest pain On examination: Vital signs stable, low-grade fever noted, mild tachycardia present. Chest good air entry bilaterally regular heart sound noted. Abdominal tenderness negative. Edema negative Labs reviewed . Nonspecific. X-rays chest also nonspecific CAT scan of the head is nonspecific Assessment: 88-year-old male correction resident with a history of dementia admitted to the hospital with the possibly of altered mental status. Dehydration likely. Underlying urinary tract infection cannot be ruled out. Empirically we'll start the patient on antibiotic. Cultures pending. IV fluid. Fever control. Feeding with assistance aspiration precaution DVT prophylaxis GI prophylaxis and will follow-up the patient Present on Admission - Present on Admission Any Indicators Present on Admission: No History of DVT/PE: No History of Uncontrolled Diabetes: No Urinary Catheter: No Decubitus Ulcer Present: No Past Patient History - Past Medical History & Family History Past Medical History?: Yes - Past Social History Smoking Status: Former Smoker - CARDIAC Hx Hypertension: Yes - NEUROLOGICAL Hx Alzheimer's Disease: Yes Hx Dementia: Yes - ENDOCRINE/METABOLIC Hx Hypothyroidism: Yes - INTEGUMENTARY Hx Dermatological Problems: Yes (SEE COMMENT) Other/Comment: PER NH, ESBL (EXTENDED SPECTRUM BETA LACTAMASE) - MUSCULOSKELETAL/RHEUMATOLOGICAL Hx Falls: Yes - GENITOURINARY/GYNECOLOGICAL Hx Genitourinary Disorders: Yes Hx Prostate Problems: Yes Other/Comment: NEOPLASM OF GENITAL ORGANS - PSYCHIATRIC Hx Substance Use: No - SURGICAL HISTORY Hx Surgeries: Yes Other/Comment: Prostate surgery - ANESTHESIA Hx Anesthesia: Yes Hx Anesthesia Reactions: No Meds Allergies/Adverse Reactions: Allergies Allergy/AdvReac Type Severity Reaction Status Date / Time No Known Allergies Allergy Verified 05/04/18 14:11 Results - Vital Signs Recent Vital Signs: Last Vital Signs Temp 98.2 F 05/05/18 08:29 Pulse 88 05/05/18 08:29 Resp 18 05/05/18 08:29 BP 139/76 05/05/18 08:29 Pulse Ox 98 05/05/18 08:29 - Labs Result Diagrams: 05/05/18 08:15 05/05/18 08:04 Labs: Laboratory Results - last 24 hr 05/04/18 05/04/18 05/04/18 14:01 15:35 15:35 WBC 7.6 D RBC 4.20 L Hgb 12.9 Hct 38.1 MCV 90.8 MCH 30.8 MCHC 33.9 RDW 14.5 Plt Count 327 MPV 7.0 L Neut % (Auto) 61.7 Lymph % (Auto) 18.2 L Arch[place] % (Auto) 18.3 H Eos % (Auto) 1.2 Baso % (Auto) 0.6 Neut # (Auto) 4.7 Lymph # (Auto) 1.4 [place] # (Auto) 1.4 H Eos # (Auto) 0.1 Baso # (Auto) 0.0 Neutrophils % (Manual) Band Neutrophils % Lymphocytes % (Manual) Monocytes % (Manual) Eosinophils % (Manual) Basophils % (Manual) Platelet Estimate Anisocytosis (manual) pO2 43 VBG pH 7.46 H VBG pCO2 35 L VBG HCO3 25.6 VBG Total CO2 26.0 VBG O2 Sat (Calc) 84.4 H VBG Base Excess 1.4 VBG Potassium 4.4 Sodium 135.0 Chloride 106.0 Glucose 113 H Lactate 1.3 Potassium Carbon Dioxide Anion Gap BUN Creatinine Est GFR ( Amer) Est GFR (Non-Af Amer) POC Glucose (mg/dL) 127 H Random Glucose Calcium Total Bilirubin AST ALT Alkaline Phosphatase Total Creatine Kinase CK-MB (Mass) Troponin I Total Protein Albumin Globulin Albumin/Globulin Ratio Venous Blood Potassium 4.4 Urine Color Urine Clarity Urine pH Ur Specific [place] Urine Protein Urine Glucose (UA) Urine Ketones Urine Blood Urine Nitrate Urine Bilirubin Urine Urobilinogen Ur Leukocyte Esterase Urine WBC (Auto) Urine RBC (Auto) Ur Squamous Epith Cells Influenza Typ A,B (EIA) 05/04/18 05/04/18 05/04/18 15:35 16:41 20:26 WBC RBC Hgb Hct MCV MCH MCHC RDW Plt Count MPV Neut % (Auto) Lymph % (Auto) [place] % (Auto) Eos % (Auto) Baso % (Auto) Neut # (Auto) Lymph # (Auto) [place] # (Auto) Eos # (Auto) Baso # (Auto) Neutrophils % (Manual) Band Neutrophils % Lymphocytes % (Manual) Monocytes % (Manual) Eosinophils % (Manual) Basophils % (Manual) Platelet Estimate Anisocytosis (manual) pO2 VBG pH VBG pCO2 VBG HCO3 VBG Total CO2 VBG O2 Sat (Calc) VBG Base Excess VBG Potassium Sodium 137 Chloride 100 Glucose Lactate Potassium 4.7 Carbon Dioxide 24 Anion Gap 17 BUN 24 H Creatinine 1.1 Est GFR ( Amer) > 60 Est GFR (Non-Af Amer) > 60 POC Glucose (mg/dL) Random Glucose 114 H Calcium 9.2 Total Bilirubin 0.6 AST 32 ALT 20 L D Alkaline Phosphatase 116 Total Creatine Kinase CK-MB (Mass) Troponin I Total Protein 7.3 Albumin 4.0 Globulin 3.3 Albumin/Globulin Ratio 1.2 Venous Blood Potassium Urine Color Yellow Urine Clarity Clear Urine pH 7.0 Ur Specific [place] 1.015 Urine Protein Negative Urine Glucose (UA) Normal Urine Ketones Negative Urine Blood 1+ H Urine Nitrate Negative Urine Bilirubin Negative Urine Urobilinogen Normal Ur Leukocyte Esterase Neg Urine WBC (Auto) 3 Urine RBC (Auto) 19 H Ur Squamous Epith Cells < 1 Influenza Typ A,B (EIA) Negative for flu a/b 05/04/18 05/05/18 05/05/18 20:37 08:04 08:15 WBC 6.5 RBC 4.17 L Hgb 12.8 Hct 38.8 MCV 93.0 D MCH 30.6 MCHC 32.9 L RDW 14.5 Plt Count 252 MPV 6.8 L Neut % (Auto) 53.6 Lymph % (Auto) 21.0 [place] % (Auto) 23.0 H Eos % (Auto) 1.8 Baso % (Auto) 0.6 Neut # (Auto) 3.5 Lymph # (Auto) 1.4 [place] # (Auto) 1.5 H Eos # (Auto) 0.1 Baso # (Auto) 0.0 Neutrophils % (Manual) 58 Band Neutrophils % 1 Lymphocytes % (Manual) 21 Monocytes % (Manual) 17 H Eosinophils % (Manual) 2 Basophils % (Manual) 1 Platelet Estimate Normal Anisocytosis (manual) Slight pO2 51 VBG pH 7.45 H VBG pCO2 32 L VBG HCO3 23.9 VBG Total CO2 23.2 VBG O2 Sat (Calc) 90.3 H VBG Base Excess -1.0 L VBG Potassium 4.0 Sodium 136.0 140 Chloride 111.0 H 108 H Glucose 106 Lactate 1.3 Potassium 4.5 Carbon Dioxide 20 L Anion Gap 17 BUN 18 Creatinine 1.0 Est GFR ( Amer) > 60 Est GFR (Non-Af Amer) > 60 POC Glucose (mg/dL) Random Glucose 84 Calcium 8.5 L Total Bilirubin 0.7 AST 43 ALT 13 L D Alkaline Phosphatase 99 Total Creatine Kinase 128 CK-MB (Mass) 2.14 Troponin I < 0.0120 Total Protein 6.7 Albumin 3.4 L Globulin 3.4 Albumin/Globulin Ratio 1.0 Venous Blood Potassium 4.0 Urine Color Urine Clarity Urine pH Ur Specific [place] Urine Protein Urine Glucose (UA) Urine Ketones Urine Blood Urine Nitrate Urine Bilirubin Urine Urobilinogen Ur Leukocyte Esterase Urine WBC (Auto) Urine RBC (Auto) Ur Squamous Epith Cells Influenza Typ A,B (EIA)
[2018-05-05] MEDS: Sodium Chloride 0.9% 1,000 ML IV SCH (10:03)
--- NOTE | 2018-05-05 14:28 | CP.PCM.PN ---
Subjective - Date & Time of Evaluation Date of Evaluation: 05/05/18 Time of Evaluation: 14:27 - Subjective Subjective: Patient is little more awake than yesterday. Confused. Patient is was able to eat today. No pain noted. Vital signs stable. Chest good air entry. Regular heart sound noted. Nontender abdomen. Labs noted. Nonspecific Assessment: 88-year-old male with a history of dementia, history of hypertension. Patient is a care home resident. Altered mental status. So far patient is doing well. Will continue the current treatment. Will monitor 24 hours for neurological status. Discharge plan on Monday Objective - Vital Signs/Intake and Output Vital Signs (last 24 hours): Temp Pulse Resp BP Pulse Ox 98.2 F 88 18 139/76 98 05/05/18 08:29 05/05/18 08:29 05/05/18 08:29 05/05/18 08:29 05/05/18 08:29 Intake and Output: 05/05/18 05/05/18 06:59 18:59 Intake Total 600 Balance 600 - Medications Medications: Current Medications Acetaminophen (Tylenol 325mg Tab) 650 mg PO Q4H PRN PRN Reason: Fever >100.4 F Last Admin: 05/04/18 21:03 Dose: 650 mg Clopidogrel Bisulfate (Plavix) 75 mg PO DAILY [facility] Last Admin: 05/05/18 10:02 Dose: 75 mg Famotidine (Pepcid) 20 mg IVP DAILY [facility] Last Admin: 05/05/18 10:02 Dose: 20 mg Heparin Sodium (Porcine) (Heparin) 5,000 units SC Q8 [facility] Last Admin: 05/05/18 13:20 Dose: 5,000 units Ceftriaxone Sodium 1 gm/ (Sodium Chloride) 100 mls @ 100 mls/hr IVPB DAILY [facility]; Protocol Last Admin: 05/05/18 10:02 Dose: 100 mls/hr Sodium Chloride (Sodium Chloride 0.9%) 1,000 mls @ 75 mls/hr IV .[id number] [facility] Last Admin: 05/05/18 10:03 Dose: 75 mls/hr Levothyroxine Sodium (Synthroid) 125 mcg PO DAILY@0630 [facility] Last Admin: 05/05/18 06:42 Dose: 125 mcg Memantine (Namenda) 5 mg PO BID [facility] Last Admin: 05/05/18 10:02 Dose: 5 mg - Labs Labs: 05/05/18 08:15 05/05/18 08:04
[2018-05-06] MEDS: Sodium Chloride 0.9% 1,000 ML IV SCH (03:42)
[2018-05-06] MEDS: Levothyroxine 125 MCG TAB PO SCH (05:55)
[2018-05-07] MEDS: Levothyroxine 125 MCG TAB PO SCH (05:42)
[2018-05-07] MEDS: Sodium Chloride 0.9% 1,000 ML IV SCH ×2 (05:47→09:47)
--- NOTE | 2018-05-07 08:13 | CARD ---
APPROVED REPORT Date of service: 05/04/2018 EKG Measurement Heart [id number] <Conclusion> Normal sinus rhythm Low voltage QRS Borderline ECG
[2018-05-07 08:59] VITALS: PULSE 80
[2018-05-07 15:39] VITALS: BP 144/68; RESP 20; TEMP 97.6; O2SAT 100
--- NOTE | 2018-05-07 16:59 | CP.PCM.PN ---
Subjective - Date & Time of Evaluation Date of Evaluation: 05/07/18 Time of Evaluation: 17:00 - Subjective Subjective: Alert, awake, no sob or chest pains, mental status stable. Objective - Vital Signs/Intake and Output Vital Signs (last 24 hours): Temp Pulse Resp BP Pulse Ox 97.6 F 80 20 144/68 100 05/07/18 15:00 05/07/18 15:00 05/07/18 15:00 05/07/18 15:00 05/07/18 15:00 Intake and Output: 05/07/18 05/07/18 06:59 18:59 Intake Total 700 Balance 700 - Medications Medications: Current Medications Acetaminophen (Tylenol 325mg Tab) 650 mg PO Q4H PRN PRN Reason: Fever >100.4 F Last Admin: 05/04/18 21:03 Dose: 650 mg Clopidogrel Bisulfate (Plavix) 75 mg PO DAILY [facility] Last Admin: 05/07/18 09:47 Dose: 75 mg Famotidine (Pepcid) 20 mg PO DAILY [facility] Heparin Sodium (Porcine) (Heparin) 5,000 units SC Q8 [facility] Last Admin: 05/07/18 14:24 Dose: 5,000 units Ceftriaxone Sodium 1 gm/ (Sodium Chloride) 100 mls @ 100 mls/hr IVPB DAILY [facility]; Protocol Last Admin: 05/07/18 09:46 Dose: 100 mls/hr Sodium Chloride (Sodium Chloride 0.9%) 1,000 mls @ 75 mls/hr IV .[id number] [facility] Last Admin: 05/07/18 09:47 Dose: 75 mls/hr Levothyroxine Sodium (Synthroid) 125 mcg PO DAILY@0630 [facility] Last Admin: 05/07/18 05:42 Dose: 125 mcg Memantine (Namenda) 5 mg PO BID [facility] Last Admin: 05/07/18 09:47 Dose: 5 mg - Labs Labs: 05/05/18 08:15 05/05/18 08:04 Assessment and Plan - Assessment and Plan (Free Text) Assessment: 88 year old male admitted with fever, change in mental status, seen and examined. Awake, alert, no acute distress, follows commands. No fever, lab works within normal limits. Discussed with DR Starr, plan to discharge back to the long term. Patient verbalized understanding the plan of discharge.
--- NOTE | 2018-05-08 09:44 | CP.PCM.DIS ---
Provider - Provider Date of Admission: 05/04/18 17:37 Attending physician: Ángel Starr MD Time Spent in preparation of Discharge (in minutes): 45 Hospital Course - Lab Results Lab Results: Micro Results 05/04/18 16:44 Blood Blood Culture - Preliminary NO GROWTH AFTER 3 DAYS 05/04/18 16:44 Blood Blood Culture - Preliminary NO GROWTH AFTER 3 DAYS 05/04/18 16:41 Urine,Catheterized Urine Culture - Final No Growth (<1,000 CFU/ML) Most Recent Lab Values WBC 6.5 K/uL (4.8-10.8) 05/05/18 08:15 RBC 4.17 Mil/uL (4.40-5.90) L 05/05/18 08:15 Hgb 12.8 g/dL (12.0-18.0) 05/05/18 08:15 Hct 38.8 % (35.0-51.0) 05/05/18 08:15 MCV 93.0 fL (80.0-94.0) D 05/05/18 08:15 MCH 30.6 pg (27.0-31.0) 05/05/18 08:15 MCHC 32.9 g/dL (33.0-37.0) L 05/05/18 08:15 RDW 14.5 % (11.5-14.5) 05/05/18 08:15 Plt Count 252 K/uL (130-400) 05/05/18 08:15 MPV 6.8 fL (7.2-11.7) L 05/05/18 08:15 Neut % (Auto) 53.6 % (50.0-75.0) 05/05/18 08:15 Lymph % (Auto) 21.0 % (20.0-40.0) 05/05/18 08:15 [place] % (Auto) 23.0 % (0.0-10.0) H 05/05/18 08:15 Eos % (Auto) 1.8 % (0.0-4.0) 05/05/18 08:15 Baso % (Auto) 0.6 % (0.0-2.0) 05/05/18 08:15 Neut # (Auto) 3.5 K/uL (1.8-7.0) 05/05/18 08:15 Lymph # (Auto) 1.4 K/uL (1.0-4.3) 05/05/18 08:15 [place] # (Auto) 1.5 K/uL (0.0-0.8) H 05/05/18 08:15 Eos # (Auto) 0.1 K/uL (0.0-0.7) 05/05/18 08:15 Baso # (Auto) 0.0 K/uL (0.0-0.2) 05/05/18 08:15 Neutrophils % (Manual) 58 % (50-75) 05/05/18 08:15 Band Neutrophils % 1 % (0-2) 05/05/18 08:15 Lymphocytes % (Manual) 21 % (20-40) 05/05/18 08:15 Monocytes % (Manual) 17 % (0-10) H 05/05/18 08:15 Eosinophils % (Manual) 2 % (0-4) 05/05/18 08:15 Basophils % (Manual) 1 % (0-2) 05/05/18 08:15 Platelet Estimate Normal (NORMAL) 05/05/18 08:15 Anisocytosis (manual) Slight 05/05/18 08:15 pO2 51 mm/Hg (30-55) 05/04/18 20:37 VBG pH 7.45 (7.32-7.43) H 05/04/18 20:37 VBG pCO2 32 mmHg (40-60) L 05/04/18 20:37 VBG HCO3 23.9 mmol/L 05/04/18 20:37 VBG Total CO2 23.2 mmol/L (22-28) 05/04/18 20:37 VBG O2 Sat (Calc) 90.3 % (40-65) H 05/04/18 20:37 VBG Base Excess -1.0 mmol/L (0.0-2.0) L 05/04/18 20:37 VBG Potassium 4.0 mmol/L (3.6-5.2) 05/04/18 20:37 Sodium 136.0 mmol/l (132-148) 05/04/18 20:37 Chloride 111.0 mmol/L (98-107) H 05/04/18 20:37 Glucose 106 mg/dl (75-110) 05/04/18 20:37 Lactate 1.3 mmol/L (0.7-2.1) 05/04/18 20:37 Sodium 140 mmol/L (132-148) 05/05/18 08:04 Potassium 4.5 mmol/L (3.6-5.2) 05/05/18 08:04 Chloride 108 mmol/L (98-107) H 05/05/18 08:04 Carbon Dioxide 20 mmol/L (22-30) L 05/05/18 08:04 Anion Gap 17 (10-20) 05/05/18 08:04 BUN 18 mg/dL (9-20) 05/05/18 08:04 Creatinine 1.0 mg/dL (0.8-1.5) 05/05/18 08:04 Est GFR ( Amer) > 60 05/05/18 08:04 Est GFR (Non-Af Amer) > 60 05/05/18 08:04 POC Glucose (mg/dL) 127 mg/dL (65-110) H 05/04/18 14:01 Random Glucose 84 mg/dL (75-110) 05/05/18 08:04 Calcium 8.5 mg/dl (8.6-10.4) L 05/05/18 08:04 Total Bilirubin 0.7 mg/dL (0.2-1.3) 05/05/18 08:04 AST 43 U/L (17-59) 05/05/18 08:04 ALT 13 U/L (21-72) L D 05/05/18 08:04 Alkaline Phosphatase 99 U/L (38-126) 05/05/18 08:04 Total Creatine Kinase 128 U/L (55-170) 05/05/18 08:04 CK-MB (Mass) 2.14 ng/mL (0.0-3.38) 05/05/18 08:04 Troponin I < 0.0120 ng/mL (0.00-0.120) 05/05/18 08:04 Total Protein 6.7 g/dL (6.3-8.3) 05/05/18 08:04 Albumin 3.4 g/dL (3.5-5.0) L 05/05/18 08:04 Globulin 3.4 gm/dL (2.2-3.9) 05/05/18 08:04 Albumin/Globulin Ratio 1.0 (1.0-2.1) 05/05/18 08:04 Venous Blood Potassium 4.0 mmol/L (3.6-5.2) 05/04/18 20:37 Urine Color Yellow (YELLOW) 05/04/18 16:41 Urine Clarity Clear (Clear) 05/04/18 16:41 Urine pH 7.0 (5.0-8.0) 05/04/18 16:41 Ur Specific [place] 1.015 (1.003-1.030) 05/04/18 16:41 Urine Protein Negative mg/dL (NEGATIVE) 05/04/18 16:41 Urine Glucose (UA) Normal mg/dL (Normal) 05/04/18 16:41 Urine Ketones Negative mg/dL (NEGATIVE) 05/04/18 16:41 Urine Blood 1+ (NEGATIVE) H 05/04/18 16:41 Urine Nitrate Negative (NEGATIVE) 05/04/18 16:41 Urine Bilirubin Negative (NEGATIVE) 05/04/18 16:41 Urine Urobilinogen Normal mg/dL (0.2-1.0) 05/04/18 16:41 Ur Leukocyte Esterase Neg [place]/uL (Negative) 05/04/18 16:41 Urine WBC (Auto) 3 /hpf (0-5) 05/04/18 16:41 Urine RBC (Auto) 19 /hpf (0-3) H 05/04/18 16:41 Ur Squamous Epith Cells < 1 /hpf (0-5) 05/04/18 16:41 Influenza Typ A,B (EIA) Negative for flu a/b (NEGATIVE) 05/04/18 20:26 - Hospital Course Hospital Course: Chief complaint: Altered mental status HPI: 88-year-old male with a history of dementia brought in by the ambulance because of the altered mental status. According to the doctor in the prison patient was eating some lunch, but he was not able to eat and he was slumped and slumped forward to his chair. He was having repeated episodes like that and difficult time in arousing. But there was no fall or injury was noted. Because of the worsening changes in the mental condition, patient was transferred to emergency room. In the emergency room patient was having mild low-grade fever. He was also having coughing. Patient was fed by the pulling unit floorhand, but patient was not able to eat certain food but he was able to drink. Upon questioning he answers, but inappropriate. He was having mild tachycardia and also minimal fever Past medical history: Hypertension, Alzheimer dementia. Allergy no known drug allergy. Surgical history none Family history unknown. Review of system: Patient is somewhat lethargic. But answering questions. Able to eat. He denies any chest pain On examination: Vital signs stable, low-grade fever noted, mild tachycardia present. Chest good air entry bilaterally regular heart sound noted. Abdominal tenderness negative. Edema negative Labs reviewed . Nonspecific. X-rays chest also nonspecific CAT scan of the head is nonspecific Assessment: 88-year-old male prison resident with a history of dementia admitted to the hospital with the possibly of altered mental status. Dehydration likely. Underlying urinary tract infection cannot be ruled out. Empirically we'll start the patient on antibiotic. Cultures pending. IV fluid. Fever control. Feeding with assistance aspiration precaution DVT prophylaxis GI prophylaxis and will follow-up the patient Course in the hospital: Patient started on intravenous IV fluid. Initial CT scan of the head was negative. Patient become more awake and responding. On examination: Patient is currently more awake and responding today. He was receiving IV fluid was discontinued. There was no evidence of any culture positive. Cultures and urine analyzes a negative. Clinical examination is stable. Patient stable for discharge. Final diagnosis altered mental status likely dehydration. Advanced dementia. The patient is clinically stable will discharge to rehabilitation. Patient will follow the by Dr. Beckman in the prison. He will continue his home medications and will follow the patient as needed Discharge Plan - Follow Up Plan Condition: GUARDED Disposition: SNF [facility] Instructions: Urinary Tract Infection, Adult (DC), Altered Mental Status (DC), Fever, Adult (DC) Referrals: Ángel Starr MD [Staff Provider] -
--- NOTE | 2018-05-08 09:44 | CP.PCM.PN ---
Subjective - Date & Time of Evaluation Date of Evaluation: 05/06/18 Time of Evaluation: 09:44 - Subjective Subjective: Patient is more awake and the spotting. Is also able to eat well with the assistance. On examination: Vital signs stable pain or chest good air entry. Regular heart sound noted. Nontender abdomen. Assessment: 88-year-old male came to the emergency room with altered mental status. Slightly dehydration. Less likely CVA. Will continue the current treatment. Possible discharge plan tomorrow Objective - Vital Signs/Intake and Output Vital Signs (last 24 hours): Temp Pulse Resp BP Pulse Ox 97.6 F 80 20 144/68 100 05/07/18 15:00 05/07/18 15:00 05/07/18 15:00 05/07/18 15:00 05/07/18 15:00 - Labs Labs: 05/05/18 08:15 05/05/18 08:04
== END 2018-05-07 19:29 | DRG 422 ==
LOC: C.ER 13:58 → C.9E 17:37 → C.6T 23:00
PROVIDERS: ADMIT Internal Medicine; ATTEND Internal Medicine
DX: E86.0 Dehydration (principal); N39.0 Urinary tract infection, site not specified; G30.9 Alzheimer's disease, unspecified; F02.80 Dementia in other diseases classified elsewhere, unspecified severity, without behavioral disturbance, psychotic disturbance, mood disturbance, and anxiety; I10 Essential (primary) hypertension; Z87.891 Personal history of nicotine dependence; E03.9 Hypothyroidism, unspecified; N40.0 Benign prostatic hyperplasia without lower urinary tract symptoms

== ENCOUNTER 2018-10-05 15:28 | Emergency (ER) | payer MEDICARE, MEDICAID | END 2018-10-05 22:57 | disposition home or self-care (01) | LOC: C.ER 15:28 ==